=== PATIENT | female | born 1945 | race Caucasian/White ===

== ENCOUNTER → 2017-10-10 10:58 | Outpatient (CLI) | payer MEDICARE, SELFPAY ==
--- NOTE | 2017-10-10 11:01 | RAD_ITS ---
STUDY: X-RAY - RIGHT KNEE REASON FOR EXAM: Lateral pain and bruising after a fall 1.5 weeks ago. TECHNIQUE: 3 view(s) of the knee. COMPARISON: None. FINDINGS: Normal visualized distal femur. Normal visualized proximal tibia and fibula. Normal proximal tibiofibular articulation. There is mild joint space narrowing of the medial femorotibial compartment and a possible subtle osteochondral lesion of the medial femoral condyle on the AP view. Normal lateral femorotibial compartment. Normal patellofemoral articulation. There is mild soft tissue swelling. RAD/Knee 3 Views IMPRESSION: Mild arthrosis of the medial femorotibial compartment and possible subtle osteochondral lesion of the medial femoral condyle. Electronically Signed: Dann Dillard MD at 11:43 EDT Tel , Service support ,
== END ==
PROVIDERS: Family Provider Family Medicine; PCP Family Medicine; Visit Provider Physician Assistant
DX: M25.561 Pain in right knee (principal)
CPT/HCPCS: 73562

== ENCOUNTER → 2018-02-04 12:18 | Outpatient (CLI) | payer MEDICARE, SELFPAY ==
--- NOTE | 2018-02-04 12:21 | BI_ITS ---
MAMMOGRAPHY - BILATERAL SCREENING 3-D RAGINI SYNTHESIS REASON FOR EXAM: Female, 72 years old. Bilateral Screening 3-D tomosynthesis PERTINENT HISTORY: Asymptomatic. No significant family history. TECHNIQUE: 2-D mammograms and 3-D Ragini synthesis of the breast (s) were performed. CAD was performed. COMPARISON: 12/01/2016 through 04/16/2012. FINDINGS: The breast composition is heterogeneously dense that can obscure small breast masses. Scattered benign appearing calcifications are seen. No dense spiculated dominant masses or suspicious microcalcification cluster are identified. Tiny round asymmetric density partially overlies the inferior anterior pectoralis major muscle shadow with left MLO view only and is partially seen with left MLO view image from mammogram 11/05/2014 and is completely seen with left MLO view 04/16/2012, most likely represents unchanged lymph node. No architectural distortion, adenopathy, skin thickening or nipple retraction identified. There has been no significant change since the prior studies. BI/SCREENING MAMM (CAD), BILAT IMPRESSION: No mammographic sign of malignancy. Routine yearly mammograms recommended. ASSESSMENT CATEGORY: BIRADS Category 2: Benign. A letter regarding these results will be sent to the patient by the facility within 30 days. FOLLOW UP RECOMMENDATION: Yearly follow up mammogram recommended. (A) Negative mammographic results should not deter biopsy as a palpable lesion if present should be followed on clinical grounds and biopsy performed if clinically persistent for 3 months or increasing size. Approximately 10% of breast cancers are not detected by mammography. A normal mammogram should not delay biopsy of a clinically suspicious abnormality. Dense breast tissue mainstream neoplasm. Electronically Signed: Vincent Gabriel, at 20:06 EDT Tel , Service support ,
== END ==
PROVIDERS: Family Provider Family Medicine; PCP Family Medicine; Referring Provider Obstetrics & Gynecology; Visit Provider Obstetrics & Gynecology
DX: Z12.31 Encounter for screening mammogram for malignant neoplasm of breast (principal)
CPT/HCPCS: 77063; 77067

== ENCOUNTER 2018-02-16 12:57 | Emergency (ER) | payer MEDICARE, SELFPAY ==
[2018-02-16 12:58] VITALS: BP 123/87; PULSE 101; RESP 19; TEMP 38.1; O2SAT 98
--- NOTE | 2018-02-16 13:15 | CT_ITS ---
STUDY: CT BRAIN WITHOUT CONTRAST REASON FOR EXAM: Female, 72 years old. Headache and confusion fever chills and dizziness RADIATION DOSAGE (If Supplied By Facility): CTDIvol = ( 44.99 ) mGy, DLP = ( 745.49 ) mGycm TECHNIQUE: Transaxial CT imaging of the brain was performed without administration of intravenous contrast material. # Of Images: 225 Individualized dose optimization techniques were used for this CT. COMPARISON: None. FINDINGS: Normal soft tissue structures. Normal calvarium. There is mild cerebral atrophy with widening of the extra-axial spaces and ventricular dilatation. There are few areas of decreased attenuation within the white matter tracts of the supratentorial brain, consistent with microvascular disease changes. There is focal low attenuation within the right periventricular white matter suggesting prior ischemic change. There is focal low attenuation within the left putamen measuring 5.9 mm compatible with old lacunar infarct. Normal brainstem. There is mild cerebellar atrophy. There is no intracranial hemorrhage. There are no findings of an acute ischemic infarction. Normal visualized paranasal sinuses. CT/Brain/Head without Contrast IMPRESSION: Atrophy. Findings most consistent with prior ischemic change with asymmetry in the white matter as detailed above. 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 If symptoms persist recommend consideration for follow-up MRI. Electronically Signed: Nancy Sun MD at 14:16 EDT Tel , Service support ,
--- NOTE | 2018-02-16 13:15 | RAD_ITS ---
STUDY: X-RAY CHEST REASON FOR EXAM: Female, 72 years old. Fever TECHNIQUE: PA and lateral views of the chest. # of Images: 2 COMPARISON: None. FINDINGS: There is a calcified granuloma in the left upper lobe. There is no demonstrated pleural abnormality. Normal size heart. Normal mediastinum and alex. Normal visualized pulmonary arteries. Normal visualized aortic arch and descending thoracic aorta. There are diffuse degenerative changes of the visualized thoracic spine. Normal visualized ribs, clavicles, and shoulders. There is no demonstrated abnormality of the visualized soft tissue structures of the upper abdomen. RAD/Chest PA and Lateral IMPRESSION: Old granulomatous disease, no visualized focal infiltrate. Electronically Signed: Nancy Sun MD at 14:41 EDT Tel , Service support ,
--- NOTE | 2018-02-16 13:15 | CT_ITS ---
STUDY: CT ABDOMEN AND PELVIS WITHOUT CONTRAST REASON FOR EXAM: Female, 72 years old. Fever chills dizziness confusion back pain RADIATION DOSAGE (If Supplied By Facility): CTDIvol = ( 6.04 ) mGy, DLP = ( 271.80 ) mGycm TECHNIQUE: Transaxial images were obtained from the dome of the diaphragm to the symphysis pubis without oral contrast, and without intravenous contrast. Sagittal and coronal images were reconstructed. # Of Images: 412 Individualized dose optimization techniques were used for this CT. COMPARISON: None. FINDINGS: There is minimal lower lobe atelectasis. The visualized portions of the heart are within normal limits. Normal liver. The gallbladder is distended. Normal spleen. Normal pancreas. Normal bilateral adrenal glands. There is right-sided perinephric stranding. There is minimal right pelviectasis. There is a mildly edematous appearance of the periphery of the right kidney compared to the left. There is low attenuation within the periphery of the right kidney measuring 1.8 x 1.6 cm. There is no significant left renal perinephric stranding. There is a 2.6 x 2.2 cm left renal cyst. There is a 0.9 x 1.5 cm left renal cyst. There is a small hiatal hernia. Normal small intestine. There are mildly distended loops of small bowel the upper abdomen with air-fluid levels. There is an abundant amount of stool in the colon and multiple redundant loops of distal bowel. There are a few diverticula present without visualized diverticulitis. The appendix is visualized and appears normal. Normal abdominal aorta. Normal inferior vena cava. Normal retroperitoneum. Normal urinary bladder. Normal visualized uterus. There is a small umbilical hernia containing fat. There are diffuse degenerative changes of the visualized lumbar spine. CT/Abdomen/Pelvis without Cont IMPRESSION: There is right renal perinephric stranding and mild edema of the right kidney without significant hydronephrosis without evidence of stone raising concern for infection possible pyelonephritis recommend correlation with laboratory values. Bilateral renal cysts. Nonspecific distention of the gallbladder Small hiatal hernia Constipation. Few diverticula no evidence of diverticulitis. No evidence of appendicitis. Electronically Signed: Nancy Sun MD at 14:24 EDT Tel , Service support ,
[2018-02-16] MEDS: Acetaminophen 325 MG Tablet 650 MG PO (13:30)
[2018-02-16] MEDS: Ondansetron 4 MG/2 ML Vial IV (13:30)
[2018-02-16 13:42] LABS: Absolute Lymphocyte Count 0.98 X10^3/ul (0.83-4.51); Absolute Neutrophil Count 11.4 X10^3/uL (2.0-7.7); Basophil# 0.01 X10^3/uL; Basophil% 0.1 % (0-1); Hematocrit 39.5 % (37-47); Hemoglobin 12.8 g/dl (12.0-15.0); Lymphocyte # 0.98 X10^3/ul (4.0); Lymphocyte % 7.6 % (19-41); Mean Corp Hgb Conc 32.4 g/gl (32-36); Mean Corpuscular Hgb 29.4 pg (27.0-32.0); Mean Corpuscular Volume 90.8 fL (81-99); Mean Platelet Vol. 9.1 fl (6.2-12.0); Monocyte# 0.46 X10^3/uL; Monocyte% 3.6 % (0-10); Neutrophil # 11.37 X10^3/uL (2.7-7.7); Neutrophil % 88.6 % (47-70); POSITIVE COUNT NO; POSITIVE DIFFERENTIAL NO; POSITIVE MORPHOLOGY NO; Platelet Count 222 K/mm3 (150-450); RBC Distribution Width CV 13.8 % (11.6-14.6); RBC Distribution Width SD 45.7 fl (35.1-43.9); Red Blood Count 4.35 M/mm3 (4.2-5.4); White Blood Count 12.8 K/mm3 (4.4-11.0)
[2018-02-16 13:53] LABS: Anion Gap 9 (5-15); BUN 15 mg/dL (7-18); BUN/Creat Ratio 17.6 RATIO (10-20); Calcium,Total 8.6 mg/dL (8.5-10.1); Chloride 103 mmol/L (98-107); Creatinine, Serum 0.85 mg/dL (0.55-1.02); EST Glomerular Filtration Rate 69 mL/min (>60); Est Glom Filt Rate - Afr Amer 84 mL/min (>60); Glucose 133 mg/dL (74-106); Potassium 3.6 mmol/L (3.5-5.1); Sodium Level 136 mmol/L (136-145)
[2018-02-16 14:02] LABS: Lactic Acid 1.3 mmol/L (0.4-2.0)
--- NOTE | 2018-02-16 14:08 | ED.DCSUM_ITS ---
- ER Visit Summary Date of Service: 02/16/18 Chief Complaint: Fever History of Present Illness: The patient is a 72 F who was not felt well for the past 1 week. She reported had a temperature of 102.8 at home this morning. She has noted chills for the past several days. She is complaining of some left fl ank pain, urinary frequency, mild cough, nausea. She does report hitting her head on a cabinet last night and has a mild headache. Her daughter thought her speech was somewhat slurred this morning on the phone, but that is now improved. Patient reportedly has not taken anything for her fever. She went to urgent care and was advised to come to the emergency room for possible sepsis. Physical Examination: Blood pressure is 123/87, temperature 100.5, heart rate 101, respiratory rate 19, pulse ox 98% on room air. Patient is sitting upright in bed no acute distress. She is nontoxic appearing. Head neck examination reveals no meningismus. Heart is regular rate and rhythm. Lung sounds are clear. Abdomen is soft with no reproducible tenderness. Hypoactive bowel sounds are present. Back examination reveals no reproducible tenderness or lesions. Neuro exam is normal. Test Results: CBC was a white count 12.8 with left shift. Chemistry studies nor mal. Urinalysis is positive for nitrites with 2+ bacteria. Lactate is normal at 1.3. Influenza swab is negative. Blood cultures were sent. Two-view chest x-ray shows old granulomatous disease with no focal infiltrate. CT head shows atrophy with evidence of prior ischemic change. There is an old left basal ganglier infarct. CT flank shows right renal perinephric stranding and edema of the right kidney consistent with pyelonephritis. No evidence of appendicitis. Emergency Department Course and Treatment: Patient was given Tylenol and IV fluids. She also received ibuprofen from her home meds. On repeat evaluation she does feel improved. She be treated with a 10-day course of Bactrim. Treatment Plan: [] Disposition: Discharge Impression: Pyelonephritis This note was generated with [employer] dictation software. It may contain incorrect words, spelling, and punctuation that were not noted in review of the chart prior to signing ED Disposition - Plan for ED Patient: Chief Complaint: Fever Referrals: Florentino Guevara MD [Primary Care Provider] -
[2018-02-16 16:05] VITALS: BP 100/65; PULSE 81; RESP 16; TEMP 36.9; O2SAT 95
[2018-02-16 16:05] LABS: Mucous, Urine 0 SEEN /hpf (<or=2+)
[2018-02-16 16:06] LABS: Color, Urine Yellow (Yellow); Glucose, Dipstick Normal (Normal); Ketone-Dipstick 5 mg/dl (Negative); Leukocyte Esterase-Dipstick 100 /ul (Negative); Nitrite-Dipstick Positive (Negative); Occult Blood-Urine 150 /ul (Negative); Protein-Dipstick 30 mg/dl (Negative); Urine Bilirubin Dipstick Negative (Negative); Urine Clarity Sl. Cloudy (Clear); Urine Urobilinogen Normal (Normal)
[2018-02-16 16:18] LABS: Bacteria 2+ /hpf (None Seen); Red Blood Cells-Urine 0-5 SEEN /hpf (0-5); Squamous Epithelial Cells - UA 0-5 SEEN /hpf (5-10); White Blood Cells 5-10 SEEN /hpf (0-5)
--- NOTE | 2018-02-16 16:29 | ED.DEP ---
ED Disposition - Plan for ED Patient: Disposition: Home or Assisted Living Chief Complaint: Fever Instructions: ED Kidney Infec Female Prescriptions: Smz/Tmp Ds [Bactrim Ds] 1 tablet PO BID #20 tablet Referrals: Florentino Guevara MD [Primary Care Provider] - 1 Week
[2018-02-16] MEDS: Smz/Tmp Ds Tablet 1 TABLET PO (16:45)
[2018-02-16 16:47] VITALS: BP 112/99; PULSE 88; RESP 16; O2SAT 95
== END 2018-02-16 16:59 | disposition home or self-care (01) ==
PROVIDERS: Emergency Provider Emergency Medicine; Family Provider Family Medicine; PCP Family Medicine
DX: N12 Tubulo-interstitial nephritis, not specified as acute or chronic (principal); R05 Cough; R51 Headache; W22.8XXA Striking against or struck by other objects, initial encounter; Y93.9 Activity, unspecified; Y92.9 Unspecified place or not applicable; E03.9 Hypothyroidism, unspecified; Z79.899 Other long term (current) drug therapy
CPT/HCPCS: 70450; 71046; 74176; 80048; 81001; 83605; 85025; 87040; 87086; 87088; 87186; 87804; 96361; 96374; 99285; J7030; J7040; A4216; J2405

== ENCOUNTER 2018-02-18 10:25 | Inpatient (IN) | payer MEDICARE, SELFPAY ==
[2018-02-18 10:26] VITALS: BP 114/71; PULSE 80; RESP 17; TEMP 36.6; O2SAT 98; BMI 20.2
--- NOTE | 2018-02-18 10:39 | ED.VISSUMM ---
- ER Visit Summary Date of Service: 02/18/18 Chief Complaint: Abdominal pain, nausea, History of Present Illness: The patient is a 72 F presents to the emergency department with abdominal pain, nausea, and vomiting. The patient was seen here 2 days ago. At that time, she was diagnosed with pyelonephritis. She wanted to attempt outpatient therapy. The patient was started on Bactrim. She was given her first dose here and then is been taking it for the past 2 days. She states that she began have increasing pain in her upper abdomen, mostly on the right side. She had a few bouts of emesis yesterday. Her daughter gave her Zofran which did seem to help, but she continues to have this persistent pain. She did have a fever yesterday, but none today. She is never taken Bactrim before. She denies any lightheadedness, dizziness, or other systemic symptoms. Physical Examination: Vital signs reviewed General: Well-nourished, well-developed Head: Normocephalic, atraumatic Eyes: Pupils equal and reactive, extraocular muscles intact Neck, supple, no lymphadenopathy Heart: Regular rate and rhythm Respiratory: No distress, clear bilaterally Abdomen: Soft, nontender, nondistended, no peritoneal signs Back: Nontender Extremities: Nontender, no edema, no cords Skin: Normal color no rash Neuro: Alert and oriented, no focal or lateralizing deficits Test Results: [] Emergency Department Course and Treatment: The patient presents with persistent pain, nausea, vomiting, and fever. She was started on antibiotics for pyelonephritis. My suspicion is that she has not tolerating the outpatient therapy. IV was established. Screening labs are obtained. She does have increasing leukocytosis of 17,000. She also has new hyponatremia, which I do feel is likely because of the Bactrim. Her urine does show evidence of persistent infection. Given her age, persistent symptoms, and side effects to antibiotic therapy I do feel that the patient will require admission given her failed outpatient treatment. Patient was discussed with the hospitalist. Treatment Plan: [] Disposition: Admission Impression: 1. Pyelonephritis with failed outpatient therapy 2. Hyponatremia This note was generated with [employer] software. It may contain incorrect words, spelling, and punctuation that were not noted in review of the chart prior to signing ED Disposition - Plan for ED Patient: Chief Complaint: Abd Pain Referrals: Florentino Guevara MD [Primary Care Provider] -
[2018-02-18] MEDS: 0.9% Normal Saline 1,000 ML 1000 ML IV (11:00)
[2018-02-18 11:10] LABS: Absolute Lymphocyte Count 0.58 X10^3/ul (0.83-4.51); Absolute Neutrophil Count 15.6 X10^3/uL (2.0-7.7); Basophil# 0.01 X10^3/uL; Basophil% 0.1 % (0-1); Eosinophil# 0.01 X10^3/uL; Eosinophils% 0.1 % (0-5); Hematocrit 33.5 % (37-47); Hemoglobin 11.7 g/dl (12.0-15.0); Lymphocyte # 0.58 X10^3/ul (4.0); Lymphocyte % 3.3 % (19-41); Mean Corp Hgb Conc 34.9 g/gl (32-36); Mean Corpuscular Hgb 30.2 pg (27.0-32.0); Mean Corpuscular Volume 86.6 fL (81-99); Mean Platelet Vol. 9.6 fl (6.2-12.0); Monocyte# 1.22 X10^3/uL; Neutrophil # 15.59 X10^3/uL (2.7-7.7); Neutrophil % 89.2 % (47-70); Platelet Count 226 K/mm3 (150-450); RBC Distribution Width SD 40.5 fl (35.1-43.9); Red Blood Count 3.87 M/mm3 (4.2-5.4); White Blood Count 17.5 K/mm3 (4.4-11.0)
[2018-02-18 11:11] LABS: Differential Indicated SCAN CRITERIA MET; POSITIVE COUNT NO; POSITIVE DIFFERENTIAL YES; POSITIVE MORPHOLOGY NO
[2018-02-18 11:14] LABS: ALB/GLOB Ratio 0.7 RATIO (0.9-2.4); AST(SGOT) 21 U/L (15-37); Alanine Aminotransfer ALT/SGPT 21 U/L (13-56); Albumin, Serum 2.9 g/dL (3.2-5.0); Alkaline Phosphatase 74 U/L (45-117); Anion Gap 10 (5-15); BUN 16 mg/dL (7-18); BUN/Creat Ratio 15.8 RATIO (10-20); Calcium,Total 8.2 mg/dL (8.5-10.1); Chloride 92 mmol/L (98-107); Creatinine, Serum 1.01 mg/dL (0.55-1.02); EST Glomerular Filtration Rate 57 mL/min (>60); Est Glom Filt Rate - Afr Amer 69 mL/min (>60); Estimated Creatinine Clearance 42.51 ml/min; Globulin 3.9 g/dL (2.2-4.2); Glucose 106 mg/dL (74-106); Potassium 3.6 mmol/L (3.5-5.1); Protein, Total 6.8 g/dL (6.4-8.2); Sodium Level 125 mmol/L (136-145)
[2018-02-18 11:21] LABS: Lactic Acid 1.6 mmol/L (0.4-2.0)
[2018-02-18 11:31] LABS: Platelet Estimate A (ADEQ); Red Cell Morphology NORM C+C NORMAL (NORM C&C)
[2018-02-18 11:47] LABS: Bacteria 0 SEEN /hpf (None Seen); Mucous, Urine 0 SEEN /hpf (<or=2+)
[2018-02-18 11:51] LABS: Color, Urine Yellow (Yellow); Glucose, Dipstick Normal (Normal); Ketone-Dipstick Negative (Negative); Leukocyte Esterase-Dipstick 25 /ul (Negative); Nitrite-Dipstick Negative (Negative); Occult Blood-Urine 150 /ul (Negative); Protein-Dipstick 30 mg/dl (Negative); Specific Gravity, Urine 1.015 (1.002-1.030); Urine Bilirubin Dipstick Negative (Negative); Urine Clarity Sl. Cloudy (Clear); Urine Urobilinogen Normal (Normal)
[2018-02-18] MEDS: Acetaminophen 500 MG Tablet 1000 MG PO (11:53)
[2018-02-18] MEDS: Morphine 2 MG/ML Syringe IV (11:54)
[2018-02-18 12:05] LABS: Red Blood Cells-Urine 10-25 SEEN /hpf (0-5); Squamous Epithelial Cells - UA 0-5 SEEN /hpf (5-10); White Blood Cells 0-5 SEEN /hpf (0-5)
[2018-02-18] MEDS: Ceftriaxone 1 GM/50 ML BAG IV (12:30)
[2018-02-18] MEDS: fentaNYL 100 MCG/2 ML Ampul 25 MCG IV (13:06)
[2018-02-18 13:24] VITALS: BMI 20.2
[2018-02-18 13:39] VITALS: BMI 20.5
[2018-02-18 14:15] VITALS: BP 134/79; PULSE 69; RESP 16; TEMP 36.9; O2SAT 93
--- NOTE | 2018-02-18 14:37 | CASEMGMT ---
RN CM Assessment PCP: Dr. Guevara [facility] Prescription coverage: yes Living Arrangements: Lives with daughter DME: Denies DME use DC PLAN: HOME, no needs identified @ this time.
[2018-02-18] MEDS: Ondansetron 4 MG/2 ML Vial IV (17:24)
[2018-02-18] MEDS: 0.9% NaCl Peripheral Flush Adult/Peds IV ×2 (17:24→21:43)
--- NOTE | 2018-02-18 19:30 | PCM.HP.STD ---
Problem List (1) Hypothyroid Status: Chronic (2) Pyelonephritis Status: Acute History of Present Illness Date of Admission: 02/18/18 Chief Complaint: Abdominal pain The patient is a 72 year old F with a PMH as above presented to the ER on sunday and was found to have pyelonephritis. She had a fever on sunday and has been having chills for the week prior as well as right flank pain. CT at the time demonstrated right pyelo and she was discharged on bactrim. Unfortunately she was unable to tolerate the bactrim and had nausea and episodes of vomiting over the weekend and she presented back to the ER for admission d/t failure of outpatient management. Her cx from sunday shows a friend sensitive E. coli and she was given a dose of rocephin in the ER. SHe was not septic on admission. Past Medical History Past Medical History (Chronic Problems): Chronic Problems (Last Updated 01/07/18 @ 13:56 by Socorro Mckeon) Hypothyroid (Chronic) Medical History: Medical History (Last Updated 01/07/18 @ 13:56 by Socorro Mckeon) Skin cancer C44.90 Thyroid disorder E07.9 Allergies No Known Allergies Allergy (Verified 02/18/18 10:29) Home Medications: Ambulatory Orders Medication Instructions Recorded levothyroxine 25 mcg tablet 25 mcg PO DAILY #30 tab 01/08/18 Smz/Tmp Ds [Bactrim Ds] 1 tablet PO BID #20 tablet 02/16/18 Surgical History: Surgical History (Last Updated 01/07/18 @ 13:56 by Socorro Mckeon) History of rotator cuff surgery Z98.890 skin cancer removal Smoking Status: Never smoker Alcohol: None Drugs: None - *Family History Maternal Family History: Family History (Last Updated 01/07/18 @ 13:58 by Socorro Mckeon) Mother Abdominal aortic aneurysm Uncle Abdominal aortic aneurysm Brother Abdominal aortic aneurysm Review of Systems Constitutional: Denies: Chills, Fever, Weight Change HEENT: Denies: Head Aches, Sinus Congestion, Sinus Drainage Cardiovascular: Denies: Chest Pain, Palpitations Respiratory: Denies: Cough, Shortness of breath at rest, Sputum production Gastrointestinal: Reports: Abdominal Pain, Nausea, Vomiting Genitourinary: Denies: Dysuria Musculoskeletal: Denies: Joint Pain, Joint Tenderness Skin: Denies: Rash, Wounds Neurological: Denies: Numbness, Tingling, Focal weakness Psychiatric: Denies: Anxiety, Depression Hematologic/ Lymphatic: Denies: Easy Bruising, Easy Bleeding VTE Information - Inpt Only VTE Present on Admission: No Patient Problems: Active and Suspected Problems (Last Updated 01/07/18 @ 13:56 by Socorro Mckeon) Pyelonephritis (Acute) - Physical Exam General: Alert, Oriented x3, Cooperative, No apparent distress HEENT: Atraumatic, PERRLA, EOMI, Normocephalic Oral: Moist Mucosa Neck: Supple, No JVD Lungs: Clear to auscultation, Normal air movement, No rhonchi, No wheeze, No rales Cardiovascular: Regular rate, Regular Rhythm, Normal S1, Normal S2, No murmurs Abdomen: Soft, Non-Distended, No Hepato-splenomegaly, Tender - mild, - - mild right CVA tenderness Skin: No rashes, No breakdown Neurological: Neuro grossly intact, Sensory exam intact to light touch and pain Psych/Mental Status: Normal Affect, Appropriate Vital Signs Temp Pulse Resp BP Pulse Ox 98.5 F 69 16 134/79 H 93 02/18/18 14:15 02/18/18 14:15 02/18/18 14:15 02/18/18 14:15 02/18/18 14:15 Oxygen Delivery Method Room Air Weight: 123 lb 3.2 oz Body Mass Index (BMI) 20.5 Intake and Output for Last 24 Hours 02/16/18 02/17/18 02/18/18 23:59 23:59 23:59 Intake Total 200 / 200 Balance 200 / 200 Laboratory Tests Past 24 Hrs 02/18/18 02/18/18 02/18/18 10:50 10:50 10:50 WBC 17.5 H RBC 3.87 L Hgb 11.7 L Hct 33.5 L MCV 86.6 MCH 30.2 MCHC 34.9 RDW 13.0 RDW Differential 40.5 Plt Count 226 MPV 9.6 Immature Gran % (Auto) 0.300 Neut % (Auto) 89.2 H Lymph % (Auto) 3.3 L Parker % (Auto) 7.0 Eos % (Auto) 0.1 Baso % (Auto) 0.1 Absolute Neuts (auto) 15.6 H Absolute Lymphs (auto) 0.58 L Total Counted Not Reportable Differential Comment Platelet Estimate A RBC Morphology NORM C+C Sodium 125 L Potassium 3.6 Chloride 92 L Carbon Dioxide 23.0 Anion Gap 10 BUN 16 Creatinine 1.01 Estim Creat Clear Calc 42.51 Est GFR (MDRD) Af Amer 69 Est GFR (MDRD) Non-Af 57 L BUN/Creatinine Ratio 15.8 Glucose 106 Lactic Acid 1.6 Calcium 8.2 L Total Bilirubin 0.30 AST 21 ALT 21 Alkaline Phosphatase 74 Total Protein 6.8 Albumin 2.9 L Globulin 3.9 Albumin/Globulin Ratio 0.7 L Urine Color Urine Clarity Urine pH Ur Specific Dalton Urine Protein Urine Glucose (UA) Urine Ketones Urine Occult Blood Urine Nitrite Urine Bilirubin Urine Urobilinogen Ur Leukocyte Esterase Urine RBC Urine WBC Ur Squamous Epith Cells Urine Bacteria Urine Mucus 02/18/18 11:36 WBC RBC Hgb Hct MCV MCH MCHC RDW RDW Differential Plt Count MPV Immature Gran % (Auto) Neut % (Auto) Lymph % (Auto) Parker % (Auto) Eos % (Auto) Baso % (Auto) Absolute Neuts (auto) Absolute Lymphs (auto) Total Counted Differential Comment Platelet Estimate RBC Morphology Sodium Potassium Chloride Carbon Dioxide Anion Gap BUN Creatinine Estim Creat Clear Calc Est GFR (MDRD) Af Amer Est GFR (MDRD) Non-Af BUN/Creatinine Ratio Glucose Lactic Acid Calcium Total Bilirubin AST ALT Alkaline Phosphatase Total Protein Albumin Globulin Albumin/Globulin Ratio Urine Color Yellow Urine Clarity Sl. Cloudy Urine pH 6.0 Ur Specific Dalton 1.015 Urine Protein 30 H Urine Glucose (UA) Normal Urine Ketones Negative Urine Occult Blood 150 H Urine Nitrite Negative Urine Bilirubin Negative Urine Urobilinogen Normal Ur Leukocyte Esterase 25 H Urine RBC 10-25 SEEN Urine WBC 0-5 SEEN Ur Squamous Epith Cells 0-5 SEEN Urine Bacteria 0 SEEN Urine Mucus 0 SEEN Assessment/Plan All Active Problems (Last Updated 01/07/18 @ 13:56 by Socorro Mckeon) Pyelonephritis (Acute) 1. Right pyelonephritis - Admit inpatient for outpatient failure - Cipro BID - No IVF - Morphine only prn - Zofran prn 2. Hypothyroidism - Stable - c/w synthroid DVT: Heparin Diet: Regular Code Visit Inpatient E&M: 43159 Init Hosp L2
[2018-02-18 20:40] VITALS: BP 109/66; PULSE 63; RESP 16; TEMP 37; O2SAT 95
[2018-02-18] MEDS: Heparin Injection (Vial) 5,000 UNIT/ML VIAL 5000 UNIT SC (21:43)
[2018-02-18] MEDS: Ciprofloxacin 400 MG/200 ML BAG 200 MG IV (21:43)
[2018-02-19 02:28] VITALS: BP 117/72; PULSE 52; RESP 16; TEMP 37.4; O2SAT 96
[2018-02-19 06:31] LABS: Absolute Lymphocyte Count 0.66 X10^3/ul (0.83-4.51); Absolute Neutrophil Count 9.3 X10^3/uL (2.0-7.7); Eosinophil# 0.02 X10^3/uL; Eosinophils% 0.2 % (0-5); Hematocrit 33.2 % (37-47); Hemoglobin 11.3 g/dl (12.0-15.0); Lymphocyte # 0.66 X10^3/ul (4.0); Lymphocyte % 6.1 % (19-41); Mean Corpuscular Hgb 29.5 pg (27.0-32.0); Mean Corpuscular Volume 86.7 fL (81-99); Mean Platelet Vol. 9.5 fl (6.2-12.0); Monocyte# 0.82 X10^3/uL; Monocyte% 7.6 % (0-10); Neutrophil # 9.26 X10^3/uL (2.7-7.7); Platelet Count 231 K/mm3 (150-450); RBC Distribution Width CV 13.6 % (11.6-14.6); RBC Distribution Width SD 43.6 fl (35.1-43.9); Red Blood Count 3.83 M/mm3 (4.2-5.4); White Blood Count 10.8 K/mm3 (4.4-11.0)
[2018-02-19 06:34] LABS: POSITIVE COUNT NO; POSITIVE DIFFERENTIAL NO; POSITIVE MORPHOLOGY NO
[2018-02-19 06:52] LABS: Anion Gap 7 (5-15); BUN 11 mg/dL (7-18); BUN/Creat Ratio 13.4 RATIO (10-20); Calcium,Total 8.4 mg/dL (8.5-10.1); Chloride 100 mmol/L (98-107); Creatinine, Serum 0.82 mg/dL (0.55-1.02); EST Glomerular Filtration Rate 72 mL/min (>60); Est Glom Filt Rate - Afr Amer 88 mL/min (>60); Glucose 88 mg/dL (74-106); Potassium 3.5 mmol/L (3.5-5.1); Sodium Level 134 mmol/L (136-145)
[2018-02-19 08:30] VITALS: BP 136/81; PULSE 76; RESP 16; TEMP 37.3; O2SAT 99
[2018-02-19] MEDS: Heparin Injection (Vial) 5,000 UNIT/ML VIAL 5000 UNIT SC (09:11)
[2018-02-19] MEDS: 0.9% NaCl Peripheral Flush Adult/Peds IV (09:11)
[2018-02-19] MEDS: Ciprofloxacin 400 MG/200 ML BAG 200 MG IV (09:12)
--- NOTE | 2018-02-19 10:05 | DCINST_ITS ---
- Discharge Diagnoses Current Active Problems: Current Active and Chronic Problems (Last Updated 01/07/18 @ 13:56 by Socorro Mckeon) Hypothyroid (Chronic) Pyelonephritis (Acute) You will use the following diet at home:: Regular Your food should be the consistency of: Regular Your liquids should be the consistency of: Regular/Thin Discharge Activity: No Restrictions Call your doctor if you observe: Fever of 101 or Higher Allergies/Adverse Reactions: Allergies No Known Allergies Allergy (Verified 02/18/18 10:29) Medications to take at Discharge levothyroxine 25 mcg tablet 25 mcg PO DAILY #30 tab 01/08/18 Ciprofloxacin HCl 500 mg PO BID #14 tablet 02/19/18 The following prescriptions were given: Ciprofloxacin HCl 500 mg PO BID #14 tablet Primary Care Physician: Florentino Guevara MD [Primary Care Provider] - Please follow up with your Primary Care Physician in: in 3-5 days Test Results: Test results from this visit will be discussed in further detail at your follow- up appointment, if applicable.
--- NOTE | 2018-02-19 10:10 | DS.PCM_ITS ---
Discharge Date and Diagnosis - Problem List Patient Problems: Active and Suspected Problems (Last Updated 01/07/18 @ 13:56 by Socorro Mckeon) Pyelonephritis (Acute) Date of Admission: 02/18/18 Date of Discharge: 02/19/18 - Primary Discharge Diagnosis Active and Suspected Problems (Last Updated 01/07/18 @ 13:56 by Socorro Mckeon) Pyelonephritis (Acute) - Secondary Discharge Diagnosis Chronic Problems (Last Updated 01/07/18 @ 13:56 by Socorro Mckeon) Hypothyroid (Chronic) Hospital Course and Treatment Imaging Results: CT Abd/pelvis: IMPRESSION: There is right renal perinephric stranding and mild edema of the right kidney without significant hydronephrosis without evidence of stone raising concern for infection possible pyelonephritis recommend correlation with laboratory values. Bilateral renal cysts. Nonspecific distention of the gallbladder Small hiatal hernia Constipation. Few diverticula no evidence of diverticulitis. No evidence of appendicitis. Consults: None Operations: None Procedures: None Summary of Care Provided: HPI: The patient is a 72 year old F with a PMH as above presented to the ER on sunday and was found to have pyelonephritis. She had a fever on sunday and has been having chills for the week prior as well as right flank pain. CT at the time demonstrated right pyelo and she was discharged on bactrim. Unfortunately she was unable to tolerate the bactrim and had nausea and episodes of vomiting over the weekend and she presented back to the ER for admission d/t failure of outpatient management. Her cx from sunday shows a friend sensitive E. coli and she was given a dose of rocephin in the ER. SHe was not septic on admission. Vital Signs - 24 hr Temp Pulse Resp BP Pulse Ox 02/19/18 08:30 99.1 F 76 16 136/81 H 99 02/19/18 02:28 99.4 F H 52 L 16 117/72 96 02/18/18 20:40 98.6 F 63 16 109/66 95 02/18/18 14:15 98.5 F 69 16 134/79 H 93 02/18/18 10:26 97.8 F 80 17 114/71 98 General: Alert, Oriented x3, Cooperative, No apparent distress HEENT: Atraumatic, PERRLA, EOMI, Normocephalic Oral: Moist Mucosa Neck: Supple, No JVD Lungs: Clear to auscultation, Normal air movement, No rhonchi, No wheeze, No rales Cardiovascular: Regular rate, Regular Rhythm, Normal S1, Normal S2, No murmurs Abdomen: Soft, Non-Distended, No Hepato-splenomegaly, Non-tender Skin: No rashes, No breakdown Neurological: Neuro grossly intact, Sensory exam intact to light touch and pain Psych/Mental Status: Normal Affect, Appropriate Hospital Course 1. Acute Right pyelonephritis - She was admitted after outpatient failure with bactrim which she was unable to tolerate. She was given a dose of rocephin yesterday morning and Cipro last night. Her pain has resolved, her leukocytosis has resolved and she has been afebrile. Unfortunately she could not receive her morning dose because her IV infiltrated so she was given on of her PO cipro doses that was sent up from the outpatient pharmacy. She was discharged on PO cipro BID for 7 days. Patient Problems: Active and Suspected Problems (Last Updated 01/07/18 @ 13:56 by Socorro Mckeon) Pyelonephritis (Acute) - Physical Exam Vital Signs Temp Pulse Resp BP Pulse Ox 99.1 F 76 16 136/81 H 99 02/19/18 08:30 02/19/18 08:30 02/19/18 08:30 02/19/18 08:30 02/19/18 08:30 Oxygen Delivery Method Room Air Weight: 123 lb 3.2 oz Body Mass Index (BMI) 20.5 Intake and Output for Last 24 Hours 02/17/18 02/18/18 02/19/18 23:59 23:59 23:59 Intake Total 200 / 200 Balance 200 / 200 Laboratory Tests Past 24 Hrs 02/18/18 02/18/18 02/18/18 10:50 10:50 10:50 WBC 17.5 H RBC 3.87 L Hgb 11.7 L Hct 33.5 L MCV 86.6 MCH 30.2 MCHC 34.9 RDW 13.0 RDW Differential 40.5 Plt Count 226 MPV 9.6 Immature Gran % (Auto) 0.300 Neut % (Auto) 89.2 H Lymph % (Auto) 3.3 L [place] % (Auto) 7.0 Eos % (Auto) 0.1 Baso % (Auto) 0.1 Absolute Neuts (auto) 15.6 H Absolute Lymphs (auto) 0.58 L Total Counted Not Reportable Differential Comment Platelet Estimate A RBC Morphology NORM C+C Sodium 125 L Potassium 3.6 Chloride 92 L Carbon Dioxide 23.0 Anion Gap 10 BUN 16 Creatinine 1.01 Estim Creat Clear Calc 42.51 Est GFR (MDRD) Af Amer 69 Est GFR (MDRD) Non-Af 57 L BUN/Creatinine Ratio 15.8 Glucose 106 Lactic Acid 1.6 Calcium 8.2 L Total Bilirubin 0.30 AST 21 ALT 21 Alkaline Phosphatase 74 Total Protein 6.8 Albumin 2.9 L Globulin 3.9 Albumin/Globulin Ratio 0.7 L Urine Color Urine Clarity Urine pH Ur Specific [place] Urine Protein Urine Glucose (UA) Urine Ketones Urine Occult Blood Urine Nitrite Urine Bilirubin Urine Urobilinogen Ur Leukocyte Esterase Urine RBC Urine WBC Ur Squamous Epith Cells Urine Bacteria Urine Mucus 02/18/18 02/19/18 02/19/18 11:36 06:18 06:18 WBC 10.8 RBC 3.83 L Hgb 11.3 L Hct 33.2 L MCV 86.7 MCH 29.5 MCHC 34.0 RDW 13.6 RDW Differential 43.6 Plt Count 231 MPV 9.5 Immature Gran % (Auto) 0.100 Neut % (Auto) 86.0 H Lymph % (Auto) 6.1 L [place] % (Auto) 7.6 Eos % (Auto) 0.2 Baso % (Auto) 0.0 Absolute Neuts (auto) 9.3 H Absolute Lymphs (auto) 0.66 L Total Counted Not Reportable Differential Comment Platelet Estimate RBC Morphology Sodium 134 L Potassium 3.5 Chloride 100 Carbon Dioxide 27.0 Anion Gap 7 BUN 11 Creatinine 0.82 Estim Creat Clear Calc 53.10 Est GFR (MDRD) Af Amer 88 Est GFR (MDRD) Non-Af 72 BUN/Creatinine Ratio 13.4 Glucose 88 Lactic Acid Calcium 8.4 L Total Bilirubin AST ALT Alkaline Phosphatase Total Protein Albumin Globulin Albumin/Globulin Ratio Urine Color Yellow Urine Clarity Sl. Cloudy Urine pH 6.0 Ur Specific [place] 1.015 Urine Protein 30 H Urine Glucose (UA) Normal Urine Ketones Negative Urine Occult Blood 150 H Urine Nitrite Negative Urine Bilirubin Negative Urine Urobilinogen Normal Ur Leukocyte Esterase 25 H Urine RBC 10-25 SEEN Urine WBC 0-5 SEEN Ur Squamous Epith Cells 0-5 SEEN Urine Bacteria 0 SEEN Urine Mucus 0 SEEN Discharge Activity: No Restrictions Call your doctor if you observe: Fever of 101 or Higher Home Medications: Medications to take at Discharge levothyroxine 25 mcg tablet 25 mcg PO DAILY #30 tab 01/08/18 Ciprofloxacin HCl 500 mg PO BID #14 tablet 02/19/18 Following Prescrptions Were Given to Patient: Ciprofloxacin HCl 500 mg PO BID #14 tablet Primary Care Physician: Florentino Guevara MD [Primary Care Provider] - Please follow up with your Primary Care Physician in: in 3-5 days Disposition: Home Minutes spent on discharge:: 35 Patient Condition:: Good Medical Necessity - Tobacco Use Smoking Status: Never smoker Meaningful Use Info Meaningful Use Diagnoses (Choose all that apply): None applicable Code Visit Inpatient E&M: 44602 Disch Hosp
== END 2018-02-19 11:22 | disposition home or self-care (01) | DRG 690 ==
LOC: ED 12:34 → MS2 12:41
PROVIDERS: Admitting Provider Family Medicine; Emergency Provider Emergency Medicine; Family Provider Family Medicine; PCP Family Medicine; Referring Provider Family Medicine; Visit Provider Family Medicine
DX: N10 Acute pyelonephritis (principal); E03.9 Hypothyroidism, unspecified
CPT/HCPCS: 36415; 70450; 71046; 74176; 80048; 80053; 81001; 83605; 85025; 87040; 87086; 87088; 87186; 87804; 96361; 96374; 99282; 99285; J7030; J7040; J7050; A4216; J0744; J2405

== ENCOUNTER → 2018-08-28 | Outpatient (CLI) | payer MEDICARE, SELFPAY ==
[2018-06-11 09:59] VITALS: BMI 20.5
== END | disposition home or self-care (01) ==
LOC: LABSPEC 16:10
PROVIDERS: Family Provider Family Medicine; PCP Family Medicine; Referring Provider Otolaryngology; Visit Provider Otolaryngology
DX: J32.9 Chronic sinusitis, unspecified (principal)
CPT/HCPCS: 87070; 87205

== ENCOUNTER → 2018-09-09 | Outpatient (CLI) | payer MEDICARE, SELFPAY ==
[2018-06-11 09:59] VITALS: BMI 20.5
--- NOTE | 2018-09-09 06:31 | CT_ITS ---
HISTORY: SINUSITIS-right sided since Apr 2018 EXAMINATION: CT Sinuses W/O Contrast TECHNIQUE: Helically acquired images were obtained of the paranasal sinuses. A radiation dose optimization technique was used for this scan. IV Contrast dosage and agent: None. COMPARISON: None FINDINGS: Complete opacification of the right maxillary sinus with inflammatory occlusion of the right ostiomeatal unit. Subtotal opacification of the right frontal sinus and opacification of the anterior ethmoid air cells on the right. The frontal, ethmoid, and maxillary sinuses on the left appear clear. The sphenoid sinuses are clear. Bilateral christiano bullosa, small on the right and moderate on the left. Mild nasal septal deviation to the right accompanied by a small spur of the mid septum which projects to the right . The mastoids and middle ear cavities appear clear. The orbits show no inflammatory disease. Intact globes. CT/Sinus/Facial Bone IMPRESSION: 1. Complete opacification of the right maxillary sinus with inflammatory occlusion of the right ostiomeatal unit. 2. Additional frontal and ethmoid sinusitis on the right. 3. Mild deviation of the nasal septum to the right. Bilateral christiano bullosa, small on the right and moderate on the left. Individualized dose optimization techniques were used for this CT. at 0746 Reported and signed by: Yonny Snow MD Electronically Signed: Yonny Snow, at 7:44 EDT Tel , Service support ,
== END | disposition home or self-care (01) ==
PROVIDERS: Family Provider Family Medicine; PCP Family Medicine; Referring Provider Otolaryngology Otolaryngology/Facial Plastic Surgery; Visit Provider Otolaryngology Otolaryngology/Facial Plastic Surgery
DX: J32.9 Chronic sinusitis, unspecified (principal)
CPT/HCPCS: 70486

== ENCOUNTER → 2018-11-01 | Outpatient (CLI) | payer MEDICARE, SELFPAY ==
[2018-06-11 09:59] VITALS: BMI 20.5
== END | disposition home or self-care (01) ==
LOC: LABSPEC 16:03
PROVIDERS: Family Provider Family Medicine; PCP Family Medicine; Referring Provider Otolaryngology; Visit Provider Otolaryngology
DX: J01.90 Acute sinusitis, unspecified (principal)
CPT/HCPCS: 87070; 87205

== ENCOUNTER → 2018-11-15 | Outpatient (CLI) | payer MEDICARE, SELFPAY ==
[2018-11-15 13:11] VITALS: BMI 20.5
--- NOTE | 2018-11-15 13:14 | RAD_ITS ---
STUDY: X-RAY - RIGHT HAND REASON FOR EXAM: Female, 73 years old. Medial pain. TECHNIQUE: 3 view(s) of the hand. COMPARISON: None. FINDINGS: Normal radiocarpal articulation. Normal distal radioulnar joint. Normal visualized carpal bones. Normal carpal articulations There is degenerative arthrosis of the carpometacarpal articulation of the thumb with lateral subluxation of the first metacarpus. Normal second through fifth carpometacarpal joints. Normal metacarpi. Normal metacarpophalangeal joint of the thumb. Normal interphalangeal joint of the thumb. Normal proximal and distal phalanges of the thumb. Normal metacarpophalangeal joints of the second through fifth fingers. There is mild articular joint space narrowing of the proximal and distal interphalangeal joints of the second through fifth fingers, but without erosive changes or periarticular soft tissue swelling. Normal phalanges of the second through fifth fingers. Soft tissue swelling. RAD/Hand Min 3 Views IMPRESSION: Degenerative changes. Soft tissue swelling. Electronically Signed: Mic Lowery, at 13:40 EDT , Service support ,
--- NOTE | 2018-11-15 13:14 | RAD_ITS ---
STUDY: X-RAY - RIGHT WRIST REASON FOR EXAM: Female, 73 years old. History of fall. TECHNIQUE: 3 view(s) of the wrist were obtained. COMPARISON: None. FINDINGS: Normal visualized distal radius and ulna. Normal radiocarpal articulation. Normal distal radioulnar articulation. Normal carpal bones. Normal carpal articulations. There is degenerative arthrosis of the carpometacarpal articulation of the thumb. Normal second through fifth carpometacarpal articulations. Normal visualized metacarpal bones. The soft tissue structures are unremarkable. RAD/Wrist min 3 Views IMPRESSION: No acute abnormality is seen. Arthrosis of the first carpometacarpal joint. Electronically Signed: Mic Lowery, at 13:40 EDT , Service support ,
== END | disposition home or self-care (01) ==
LOC: HPRAD 13:13
PROVIDERS: Family Provider Family Medicine; PCP Family Medicine; Referring Provider Physician Assistant Surgical; Visit Provider Physician Assistant Surgical
DX: S60.211A Contusion of right wrist, initial encounter (principal)
CPT/HCPCS: 73110; 73130

== ENCOUNTER → 2019-01-24 09:00 | Outpatient (CLI) | payer MEDICARE, SELFPAY ==
[2018-11-15 13:11] VITALS: BMI 20.5
[2019-01-24 12:23] LABS: Absolute Lymphocyte Count 1.69 X10^3/uL (0.83-4.51); Absolute Neutrophil Count 2.6 X10^3/uL (2.0-7.7); Basophil# 0.03 X10^3/uL; Basophil% 0.6 % (0-1); Eosinophil# 0.14 X10^3/uL; Eosinophils% 2.8 % (0-5); Hematocrit 40.6 % (37-47); Hemoglobin 12.6 g/dL (12.0-15.0); Lymphocyte # 1.69 X10^3/ul (4.0); Lymphocyte % 33.7 % (19-41); Mean Corpuscular Hgb 29.1 pg (27.0-32.0); Mean Corpuscular Volume 93.8 fL (81-99); Mean Platelet Vol. 10.2 fl (6.2-12.0); Monocyte# 0.54 X10^3/uL; Monocyte% 10.8 % (0-10); NRBC Flagged by Analyzer 0 % (0-5); Neutrophil % 51.9 % (47-70); Platelet Count 298 K/mm3 (150-450); RBC Distribution Width CV 13.3 % (11.6-14.6); RBC Distribution Width SD 46.2 fl (35.1-43.9); Red Blood Count 4.33 M/mm3 (4.2-5.4)
[2019-01-24 12:50] LABS: Vitamin D,25 Hydroxy 50.8 ng/mL (29.95-100.01)
[2019-01-24 13:06] LABS: ALB/GLOB Ratio 1.1 RATIO (0.9-2.4); AST(SGOT) 18 U/L (15-37); Alanine Aminotransfer ALT/SGPT 24 U/L (13-56); Albumin, Serum 3.8 g/dL (3.2-5.0); Alkaline Phosphatase 77 U/L (45-117); Anion Gap 9 (5-15); BUN 18 mg/dL (7-18); BUN/Creat Ratio 21.7 RATIO (10-20); Chloride 107 mmol/L (98-107); Cholesterol 223 mg/dL (200); Creatinine, Serum 0.83 mg/dL (0.55-1.02); EST Glomerular Filtration Rate 71 mL/min (>60); Est Glom Filt Rate - Afr Amer 86 mL/min (>60); Globulin 3.4 g/dL (2.2-4.2); Glucose 83 mg/dL (74-106); High Density Lipoprotein 76 mg/dL; Potassium 3.8 mmol/L (3.5-5.1); Protein, Total 7.2 g/dL (6.4-8.2); Sodium Level 142 mmol/L (136-145); Thyroid Stim Hormone (TSH) 2.25 uIU/mL (0.358-3.74); Triglycerides 71 mg/dL; Very Low Density Lipoprotein 14 mg/dL (5-40)
== END ==
PROVIDERS: Family Provider Family Medicine; PCP Family Medicine; Visit Provider Family Medicine
DX: Z00.01 Encounter for general adult medical examination with abnormal findings (principal); E03.9 Hypothyroidism, unspecified; E55.9 Vitamin D deficiency, unspecified; E78.5 Hyperlipidemia, unspecified; J32.9 Chronic sinusitis, unspecified
CPT/HCPCS: 36415; 80053; 80061; 82306; 84443; 85025

== ENCOUNTER → 2020-01-30 13:19 | Outpatient (CLI) | payer MEDICARE, SELFPAY ==
[2018-11-15 13:11] VITALS: BMI 20.5
[2020-01-30 15:36] LABS: Absolute Lymphocyte Count 1.74 X10^3/uL (0.83-4.51); Absolute Neutrophil Count 3.5 X10^3/uL (2.0-7.7); Basophil# 0.04 X10^3/uL; Basophil% 0.7 % (0-1); Eosinophil# 0.13 X10^3/uL; Eosinophils% 2.2 % (0-5); Hematocrit 41.6 % (37-47); Lymphocyte # 1.74 X10^3/ul (4.0); Lymphocyte % 29.3 % (19-41); Mean Corp Hgb Conc 31.3 g/dL (32-36); Mean Corpuscular Volume 92.7 fL (81-99); Mean Platelet Vol. 9.9 fl (6.2-12.0); Monocyte# 0.56 X10^3/uL; Monocyte% 9.4 % (0-10); NRBC Flagged by Analyzer 0 % (0-5); Neutrophil # 3.46 X10^3/uL (2.7-7.7); Neutrophil % 58.2 % (47-70); Platelet Count 325 K/mm3 (150-450); RBC Distribution Width CV 13.3 % (11.6-14.6); RBC Distribution Width SD 45.2 fl (35.1-43.9); Red Blood Count 4.49 M/mm3 (4.2-5.4); White Blood Count 5.9 K/mm3 (4.4-11.0)
[2020-01-30 15:41] LABS: Vitamin D,25 Hydroxy 40.4 ng/mL
[2020-01-30 15:50] LABS: ALB/GLOB Ratio 1.2 RATIO (0.9-2.4); AST(SGOT) 19 U/L (15-37); Alanine Aminotransfer ALT/SGPT 25 U/L (13-56); Albumin, Serum 4.1 g/dL (3.2-5.0); Alkaline Phosphatase 74 U/L (45-117); Anion Gap 6 (5-15); BUN 13 mg/dL (7-18); BUN/Creat Ratio 15.3 RATIO (10-20); Calcium,Total 8.9 mg/dL (8.5-10.1); Chloride 107 mmol/L (98-107); Cholesterol 235 mg/dL (200); Creatinine, Serum 0.85 mg/dL (0.55-1.02); EST Glomerular Filtration Rate 69 mL/min (>60); Est Glom Filt Rate - Afr Amer 84 mL/min (>60); Globulin 3.4 g/dL (2.2-4.2); Glucose 82 mg/dL (74-106); High Density Lipoprotein 82 mg/dL; Potassium 3.5 mmol/L (3.5-5.1); Protein, Total 7.5 g/dL (6.4-8.2); Sodium Level 138 mmol/L (136-145); Thyroid Stim Hormone (TSH) 1.49 uIU/mL (0.358-3.74); Triglycerides 75 mg/dL; Very Low Density Lipoprotein 15 mg/dL (5-40)
== END ==
PROVIDERS: PCP Family Medicine; Visit Provider Family Medicine
DX: Z00.00 Encounter for general adult medical examination without abnormal findings (principal); E55.9 Vitamin D deficiency, unspecified; E03.9 Hypothyroidism, unspecified; E78.5 Hyperlipidemia, unspecified
CPT/HCPCS: 36415; 80053; 80061; 82306; 84443; 85025

== ENCOUNTER → 2020-11-05 12:02 | Outpatient (CLI) | payer MEDICARE, SELFPAY ==
--- NOTE | 2020-11-05 12:05 | RAD_ITS ---
STUDY: X-RAY - RIGHT KNEE REASON FOR EXAM: Female, 75 years old. PAIN TECHNIQUE: 4 view(s) of the knee. COMPARISON: None. FINDINGS: Normal visualized distal femur. Normal visualized proximal tibia and fibula. Normal proximal tibiofibular articulation. Normal medial femorotibial compartment. Normal lateral femorotibial compartment. Normal patellofemoral articulation. There is a soft tissue prominence in the suprapatellar region suggesting a small volume joint effusion. The soft tissue structures are unremarkable. RAD/Knee 4 or More Views IMPRESSION: Effusion, as described above. MRI may be useful. Electronically Signed: Gianni Williamson MD at 6:54 EDT Tel , Service support ,
== END ==
PROVIDERS: PCP Family Medicine; Referring Provider Family Medicine; Visit Provider Family Medicine
DX: M25.561 Pain in right knee (principal)
CPT/HCPCS: 73564

== ENCOUNTER → 2022-04-20 | Outpatient (CLI) | payer MEDICARE, SELFPAY ==
[2022-04-20 17:56] LABS: Absolute Lymphocyte Count 1.94 X10^3/uL (0.83-4.51); Absolute Neutrophil Count 3.9 X10^3/uL (2.0-7.7); Basophil# 0.02 X10^3/uL; Basophil% 0.3 % (0-1); Eosinophil# 0.14 X10^3/uL; Eosinophils% 2.1 % (0-5); Hemoglobin 13.4 g/dL (12.0-15.0); Lymphocyte # 1.94 X10^3/ul (0.83-4.51); Lymphocyte % 29.2 % (19-41); Mean Corp Hgb Conc 31.9 g/dL (32-36); Mean Corpuscular Hgb 29.6 pg (27.0-32.0); Mean Corpuscular Volume 92.7 fL (81-99); Mean Platelet Vol. 10.1 fl (6.2-12.0); Monocyte# 0.67 X10^3/uL; Monocyte% 10.1 % (0-10); NRBC Flagged by Analyzer 0 % (0-5); Neutrophil # 3.87 X10^3/uL (2.7-7.7); Neutrophil % 58.1 % (47-70); Platelet Count 319 K/mm3 (150-450); RBC Distribution Width CV 13.2 % (11.6-14.6); RBC Distribution Width SD 44.7 fl (35.1-43.9); Red Blood Count 4.53 M/mm3 (4.2-5.4); White Blood Count 6.7 K/mm3 (4.4-11.0)
[2022-04-20 18:12] LABS: Vitamin D,25 Hydroxy 25.5 ng/mL
[2022-04-20 18:17] LABS: ALB/GLOB Ratio 1.3 RATIO (0.9-2.4); AST(SGOT) 22 U/L (15-37); Alanine Aminotransfer ALT/SGPT 31 U/L (13-56); Albumin, Serum 4.1 g/dL (3.2-5.0); Alkaline Phosphatase 76 U/L (45-117); Anion Gap 3 (5-15); BUN 17 mg/dL (7-18); BUN/Creat Ratio 21.1 RATIO (10-20); Calcium,Total 9.6 mg/dL (8.5-10.1); Chloride 104 mmol/L (98-107); EST Glomerular Filtration Rate 73 mL/min (>60); Est Glom Filt Rate - Afr Amer 88 mL/min (>60); Globulin 3.2 g/dL (2.2-4.2); Glucose 95 mg/dL (74-106); Potassium 4.4 mmol/L (3.5-5.1); Protein, Total 7.3 g/dL (6.4-8.2); Sodium Level 139 mmol/L (136-145); Thyroid Stim Hormone (TSH) 1.78 uIU/mL (0.358-3.74)
== END | disposition home or self-care (01) ==
LOC: BFHLAB 14:27
PROVIDERS: PCP Family Medicine; Visit Provider Family Medicine
DX: Z00.00 Encounter for general adult medical examination without abnormal findings (principal); E03.9 Hypothyroidism, unspecified; E55.9 Vitamin D deficiency, unspecified; E78.5 Hyperlipidemia, unspecified
CPT/HCPCS: 36415; 80053; 82306; 84443; 85025

== ENCOUNTER 2022-08-30 16:49 | Inpatient (IN) | payer MEDICARE, SELFPAY ==
[2022-08-30 16:50] VITALS: BP 180/78; PULSE 85; RESP 16; TEMP 36.3; O2SAT 99; BMI 20.6
[2022-08-30 17:13] VITALS: BMI 19.2
--- NOTE | 2022-08-30 17:14 | EDS_ITS ---
HPI History of Present Illness Chief Complaint: Neuro S/Sx Informant: patient Onset/Context/Timing Onset: Yesterday Narrative Narrative: Patient presents with daughter for evaluation of difficulty speaking. She sta rosita that she will just not be able to get the words out that she wants to say. Symptoms started yesterday but seem to be worsened today. She has had no problems eating or drinking. She denies any weakness in her extremities and denies paresthesias. Daughter states that several years ago she had a CT scan that showed evidence of an old stroke. [facility] Medical History Hypothyroid Skin cancer Home Medications levothyroxine 25 mcg tablet 25 mcg PO DAILY #30 tabs 01/08/18 [Rx Last Taken 02/15/18] ibuprofen 600 mg tablet 600 mg PO Q6H PRN pain #30 tabs 04/12/20 [Rx Last Taken Unknown] ibuprofen 600 mg tablet 600 mg PO TID #30 tabs 12/26/21 [Rx Last Taken Unknown] Allergy/AdvReac Type Severity Reaction Status Date / Time No Known Allergies Allergy Verified 04/12/20 13:22 Family History Mother Abdominal aortic aneurysm Uncle Abdominal aortic aneurysm Brother Abdominal aortic aneurysm Surgical History History of rotator cuff surgery skin cancer removal Social History Smoking Status: Never smoker alcohol intake: never substance use type: does not use caffeine: Yes what type of physical activity do you participate in: walking seatbelt use: always do you feel safe at home: Yes additional social history: - retired ROS ROS ED Constitutional Constitutional ED: Denies chills or fever(s) Eyes Eyes: Denies change in vision or discharge from eye(s) ENT ENT ED: Denies discharge from eye(s), rhinorrhea or sore throat Cardiovascular Cardiovascular: Denies chest pain or palpitations Respiratory/Chest Respiratory/Chest: Denies cough or dyspnea Gastrointestinal Gastrointestinal: Denies abdominal pain, diarrhea, nausea or vomiting Genitourinary Genitourinary ED: Reports urinary frequency; Denies dysuria Musculoskeletal Musculoskeletal: Denies back pain or extremity pain Integumentary Denies Abrasions or rash Neurologic Neurologic: Denies headache(s), paresthesias or weakness Psychiatric Psychiatric: Denies anxiety or depression Allergic/Immunologic Allergic/Immunologic ED: Denies lip swelling or urticaria EXAM Physical Exam Const Vital Signs: 08/30/22 16:50 08/30/22 18:37 08/30/22 18:37 Temperature 97.3 F L Temperature Source Temporal Pulse Rate 85 68 Respiratory Rate 16 15 Blood Pressure 180/78 H 138/74 H Blood Pressure Mean 112 95 Pulse Ox 99 95 97 Oxygen Delivery Method Room Air Room Air Room Air Positive well nourished and well developed General Appearance ED: well developed HEENT Reports normocephalic and head/scalp atraumatic Eyes PERRL and EOMs intact bilaterally Neck supple Chest Wall inspection of chest normal and palpation of chest normal Resp normal respiratory effort and clear to auscultation bilaterally Cardio regular rate and regular rhythm GI normal to inspection, nondistended, normoactive bowel sounds Palpation: soft Back/Spine no CVA tenderness Extremity normal to inspection Neuro oriented x3 Neuro Narrative: See NIH stroke scale. Sensorium / Orientation: alert Psych mental status grossly normal Skin no rashes or lesions noted NIHSS NIHSS Initial: 1a Level of Consciousness: 0 1b LOC Questions (Score 2 if aphasic/stupor): 0 1c LOC Commands (Only score 1st attempt): 0 2 Best Gaze (If aphasic, use reflexive mvmts.): 0 3 Visual: 0 4 Facial Palsy: 0 5 Motor Arm Right (UN = amputation/fusion): 0 5 Motor Arm Left: 0 6 Motor Leg Right: 0 6 Motor Leg Left: 0 7 Limb ataxia (Only + if out of proportion): 0 8 Sensory (Aphasia/stupor=0 or 1, coma=2): 0 9 Best Language: 1 10 Dysarthria (mute, coma=2, intubated=UN): 0 11 Extinction and Inattention (only scored if +): 0 Total Score: 1 MDM MDM MDM Narrative Medical decision making narrative: Stroke work-up initiated, however patient symptoms started sometime yesterday and stroke alert was not called. History & Record Review Discussion w/independent historian: Patient and Family Lab Data Attestation: I reviewed the patient's lab results. Labs: Laboratory Results - last 24 hr 08/30/22 08/30/22 08/30/22 17:20 17:20 17:20 WBC 7.3 RBC 4.37 Hgb 13.1 Hct 39.9 MCV 91.3 MCH 30.0 MCHC 32.8 RDW Std Deviation 45.4 H RDW Coeff of Rajesh 13.3 Plt Count 284 MPV 9.8 Immature Gran % (Auto) 0.100 Neut % (Auto) 59.6 Lymph % (Auto) 27.5 [place] % (Auto) 9.5 Eos % (Auto) 3.0 Baso % (Auto) 0.3 Absolute Neuts (auto) 4.3 Absolute Lymphs (auto) 2.00 Nucleated RBC % 0 PT 12.7 INR 1.0 APTT 24.6 Sodium 142 Potassium 4.0 Chloride 109 H Carbon Dioxide 27.0 Anion Gap 6 BUN 19 H Creatinine 0.90 Estim Creat Clear Calc 43.29 Est GFR (MDRD) Af Amer 78 Est GFR (MDRD) Non-Af 65 BUN/Creatinine Ratio 21.2 H Glucose 101 Calcium 9.2 Troponin I High Sens 31 Urine Color Urine Clarity Urine pH Ur Specific [place] Urine Protein Urine Glucose (UA) Urine Ketones Urine Occult Blood Urine Nitrite Urine Bilirubin Urine Urobilinogen Ur Leukocyte Esterase Urine RBC Urine WBC Ur Squamous Epith Cells Urine Bacteria Urine Mucus 08/30/22 18:07 WBC RBC Hgb Hct MCV MCH MCHC RDW Std Deviation RDW Coeff of Rajesh Plt Count MPV Immature Gran % (Auto) Neut % (Auto) Lymph % (Auto) [place] % (Auto) Eos % (Auto) Baso % (Auto) Absolute Neuts (auto) Absolute Lymphs (auto) Nucleated RBC % PT INR APTT Sodium Potassium Chloride Carbon Dioxide Anion Gap BUN Creatinine Estim Creat Clear Calc Est GFR (MDRD) Af Amer Est GFR (MDRD) Non-Af BUN/Creatinine Ratio Glucose Calcium Troponin I High Sens Urine Color Yellow Urine Clarity Clear Urine pH 7.0 Ur Specific [place] 1.010 Urine Protein Negative Urine Glucose (UA) Normal Urine Ketones Negative Urine Occult Blood 10 H Urine Nitrite Negative Urine Bilirubin Negative Urine Urobilinogen Normal Ur Leukocyte Esterase Negative Urine RBC 0 SEEN Urine WBC 0 SEEN Ur Squamous Epith Cells 0 SEEN Urine Bacteria 0 SEEN Urine Mucus 0 SEEN Radiography Chest X-Ray - ED: 1 View, Read by ED Physician, Chronic Changes and No Infiltrates Diagnostic Testing: Clinical Impression(s) from Imaging Studies Head/Neck CTA 08/30/22 18:10 IMPRESSION: No acute intracranial findings. No acute vascular injury or significant stenosis in the head or neck. Chronic right maxillary sinusitis. N.B. : The above Results were Read Back by Ashish Marino MD to Mikki Pemberton MD, and understanding confirmed on 08/30/2022 18:35:51 (ET). Electronically Signed: Ashish Marino MD at 18:38 EDT , ADDENDUM: 08/30/22 1845 IMPRESSION: No acute intracranial findings. No acute vascular injury or significant stenosis in the head or neck. Chronic right maxillary sinusitis. N.B. : The above Results were Read Back by Ashish Marino MD to Mikki Pemberton MD, and understanding confirmed on 08/30/2022 18:35:51 (ET). Electronically Signed: Ashish Marino MD at 18:38 EDT , Chest X-Ray 08/30/22 18:14 IMPRESSION: No acute cardiopulmonary disease. Stable chest. Electronically Signed: Ashish Marino MD at 18:42 EDT , EKG Initial EKG: Attestation: I personally reviewed and interpreted this EKG as follows: Interpretation: Sinus Rhythm (Sinus at 80 with no acute ischemia.) Treatment and Re-Evaluation Narrative: CBC and chemistry studies are unremarkable. Urinalysis reveals no sign of infection. Chest x-ray per my interpretation reveals chronic changes with no focal infiltrate. Radiology interpretation is reviewed. EKG is sinus rhythm with no evidence of ischemia. CTA of the head and neck reveals no acute findings per discussion with radiologist. He states the noncontrast reveals no evidence of hemorrhage or acute infarct. Given the patient's symptoms I am concerned about stroke. I will speak with hospitalist regarding admission for remainder of work-up. Discharge Plan Triage Chief Complaint: Neuro S/Sx ED Provider: Mikki Pemberton Dx/Rx/DC Orders Clinical Impression: Difficulty with speech Prescriptions: No Action levothyroxine 25 mcg tablet 25 mcg PO DAILY Qty: 30 12RF ibuprofen 600 mg tablet 600 mg PO Q6H PRN (Reason: pain) Qty: 30 0RF ibuprofen 600 mg tablet 600 mg PO TID Qty: 30 0RF Primary Care Provider: Lelo Christine Referrals: Lelo Christine MD [Primary Care Provider] - Disposition Disposition: Acute Care Hospital [facility]
[2022-08-30 17:38] LABS: Absolute Neutrophil Count 4.3 X10^3/uL (2.0-7.7); Basophil# 0.02 X10^3/uL; Basophil% 0.3 % (0-1); Eosinophil# 0.22 X10^3/uL; Hematocrit 39.9 % (37-47); Hemoglobin 13.1 g/dL (12.0-15.0); Lymphocyte % 27.5 % (19-41); Mean Corp Hgb Conc 32.8 g/dL (32-36); Mean Corpuscular Volume 91.3 fL (81-99); Mean Platelet Vol. 9.8 fl (6.2-12.0); Monocyte# 0.69 X10^3/uL; Monocyte% 9.5 % (0-10); NRBC Flagged by Analyzer 0 % (0-5); Neutrophil # 4.32 X10^3/uL (2.7-7.7); Neutrophil % 59.6 % (47-70); Platelet Count 284 K/mm3 (150-450); RBC Distribution Width CV 13.3 % (11.6-14.6); RBC Distribution Width SD 45.4 fl (35.1-43.9); Red Blood Count 4.37 M/mm3 (4.2-5.4); White Blood Count 7.3 K/mm3 (4.4-11.0)
[2022-08-30 17:44] LABS: Partial Thromboplast Time 24.6 Seconds (24.1-36.2); Prothrombin Time (Protime)PT. 12.7 SECONDS (11.7-14.9)
[2022-08-30 17:56] LABS: Anion Gap 6 (5-15); BUN 19 mg/dL (7-18); BUN/Creat Ratio 21.2 RATIO (10-20); Calcium,Total 9.2 mg/dL (8.5-10.1); Chloride 109 mmol/L (98-107); EST Glomerular Filtration Rate 65 mL/min (>60); Est Glom Filt Rate - Afr Amer 78 mL/min (>60); Estimated Creatinine Clearance 43.29 ml/min; Glucose 101 mg/dL (74-106); Sodium Level 142 mmol/L (136-145); Troponin-I HS 31 pg/mL (3.0-54.0)
--- NOTE | 2022-08-30 18:10 | CT_ITS ---
INDICATION: Neuro deficit, acute, stroke suspected EXAMINATION: CTA HEAD AND CTA NECK WITH CONTRAST AND CT BRAIN W/O CONTRAST TECHNIQUE: Noncontrast axial images were obtained of the brain. Subsequently, routine carotid CT angiogram protocol was performed without and with IV contrast. In addition, images were obtained of the [place]. NASCET criteria using the distal ICAs for comparison were used for evaluation of stenoses. 3D reconstructions were reviewed. A radiation dose optimization technique was used for this scan. IV Contrast dosage and agent: 100 mL Isovue 370. COMPARISON: FEB 16, 2018 CT brain. FINDINGS: --CT BRAIN: BRAIN PARENCHYMA: No intra- or extra-axial hemorrhage. No evidence of acute infarct. No intracranial mass or mass effect. No vasogenic edema. There is preservation of the goodman/white matter interface. Diffuse parenchymal volume loss and small vessel ischemic disease changes, upper normal for age. Posterior fossa structures are unremarkable. CSF SPACES: No hydrocephalus. Basal cisterns are patent. No focal dense vessel sign. No abnormal extra-axial fluid collection. CALVARIUM, SKULL BASE, PARANASAL SINUSES AND MASTOID AIR CELLS: Chronic right maxillary sinusitis changes. No discrete lytic or blastic abnormalities. ASPECTS Score for Acute Strokes: 10 --CTA NECK: AORTIC ARCH AND BRANCHES: 3-vessel arch anatomy, patent. Ectasia of the visualized ascending aorta. RIGHT CCA: No occlusion, significant stenosis or dissection. RIGHT ICA: No occlusion, significant stenosis or dissection. Mild tortuosity. No significant atherosclerotic plaque. LEFT CCA: No occlusion, significant stenosis or dissection. LEFT ICA: No occlusion, significant stenosis or dissection. Mild tortuosity. No significant atherosclerotic plaque. RIGHT VERTEBRAL ARTERY: No occlusion, significant stenosis or dissection. LEFT VERTEBRAL ARTERY: No occlusion, significant stenosis or dissection. Dominant vessel. NECK SOFT TISSUES: Normal thyroid gland. No mass or adenopathy. OSSEOUS: Grade 1 anterolisthesis of C3 upon C4. Multilevel degenerative changes. No critical stenosis. LUNGS: Clear. --CTA HEAD: --Anterior circulation: ICAs: No significant stenosis at the intracranial/visualized segments. ACAs: No significant stenosis at the visualized segments. ACOM: Present. MCAs: No significant stenosis at the visualized segments. --Posterior circulation: PCOMs: Present. personnel and payroll technician: No significant stenosis at the visualized segments. BASILAR ARTERY: No significant stenosis. VERTEBRAL ARTERIES: No significant stenosis at the intradural/visualized segments. No evidence of intracranial aneurysm or vascular malformation. CT/STROKE CTA Head AND Neck W/Con IMPRESSION: No acute intracranial findings. No acute vascular injury or significant stenosis in the head or neck. Chronic right maxillary sinusitis. N.B. : The above Results were Read Back by Ashish Marino MD to Mikki Pemberton MD, and understanding confirmed on 08/30/2022 18:35:51 (ET). Electronically Signed: Ashish Marino MD at 18:38 EDT ,
--- NOTE | 2022-08-30 18:14 | RAD_ITS ---
INDICATION: Neuro deficit, acute, stroke suspected EXAMINATION/TECHNIQUE: X-RAY - XR Chest 1 View COMPARISON: February 16, 2018 chest x-ray. FINDINGS: LINES/DEVICES: None. LUNGS: No consolidation, edema or effusion. No pneumothorax. Calcified hilar lymph nodes. MEDIASTINUM AND CARDIOVASCULAR STRUCTURES: Cardiac silhouette not enlarged. Aortic arch calcification. Stable appearance of the pulmonary vascularity. BONES AND SOFT TISSUES: S-shaped scoliosis of the thoracolumbar spine again seen. Associated degenerative disc disease changes throughout the spine. No acute osseous injury. RAD/Chest 1 View IMPRESSION: No acute cardiopulmonary disease. Stable chest. Electronically Signed: Ashish Marino MD at 18:42 EDT ,
[2022-08-30 18:19] LABS: Bacteria 0 SEEN /hpf (None Seen); Mucous, Urine 0 SEEN /hpf (<or=2+); Red Blood Cells-Urine 0 SEEN /hpf (0-5); Squamous Epithelial Cells - UA 0 SEEN /hpf (5-10); White Blood Cells 0 SEEN /hpf (0-5)
[2022-08-30 18:31] LABS: Color, Urine Yellow (Yellow); Glucose, Dipstick Normal (Normal); Ketone-Dipstick Negative (Negative); Leukocyte Esterase-Dipstick Negative /ul (Negative); Nitrite-Dipstick Negative (Negative); Occult Blood-Urine 10 /ul (Negative); Protein-Dipstick Negative (Negative); Urine Bilirubin Dipstick Negative (Negative); Urine Clarity Clear (Clear); Urine Urobilinogen Normal (Normal)
[2022-08-30 18:37] VITALS: BP 138/74; PULSE 68; RESP 15; O2SAT 95; O2SAT 97
--- NOTE | 2022-08-30 19:37 | PCM.HP.STD ---
HPI - General General Date of Admission: 08/30/22 Date of Service: 08/30/22 Chief Complaint: Expressive aphasia HPI Narrative The patient is a 77 y/o F w/ PMHx: Hypothyroidism, Hx prior CVA (noted on prior CT head per family) who presents to the [facility] ED on 08/30/2022 with history of expressive aphasia onset the day prior but worsened over the last 24 hours with no difficulty with oral intake or swallowing nor any extremity weakness or paresthesias prompting family eventually bring her to the ED for evaluation. Work-up in the ED included T97.3, heart rate 85, BP initially 180/78 with most recent repeat 138/74, respiratory rate 16, 99% on room air, CBC with WC 7.3, hemoglobin 13.1, platelet 284 without marked shift, unremarkable coags, BMP with chloride 109, BUN/creatinine 19/0.98, troponin 31, urinalysis with no obvious evidence of UTI, chest x-ray with no acute cardiopulmonary findings, CT of the head as well as CTA head and neck with no acute intracranial findings with no acute vascular injury or significant stenosis in the head or neck with evidence of a chronic right maxillary sinusitis, EKG with sinus rhythm with no acute evidence of ischemia. In the ED NIH stroke scale 1 for language otherwise unremarkable. In the ED patient administered FS ASA therapy. Her daughter who is present during evaluation does report that she does appear mildly improved since prior to ED presentation as she had worsened which had prompted her to eventually be brought to the ED. Patient does note difficulty still with getting some words out but does feel mildly improved. [facility] Medical History (Updated 08/30/22 @ 20:[address] Jesenia Powell MD) History of CVA (cerebrovascular accident) Hypothyroid Skin cancer Home Medications ibuprofen 600 mg tablet 600 mg PO Q6H PRN pain #30 tabs 04/12/20 [Rx Last Taken Unknown] ibuprofen 600 mg tablet 600 mg PO TID pain 08/30/22 [History Last Taken Unknown] levothyroxine 25 mcg tablet 25 mcg PO DAILY hypothyroid 08/30/22 [History Last Taken Unknown] Allergy/AdvReac Type Severity Reaction Status Date / Time No Known Allergies Allergy Verified 04/12/20 13:22 Family History (Updated 08/30/22 @ 20:[address] Jesenia Powell MD) Mother Abdominal aortic aneurysm Heart disease Uncle Abdominal aortic aneurysm Brother Abdominal aortic aneurysm Father Leukemia 59 secondary to Leukemia. Surgical History (Updated 08/30/22 @ 20:[address] Jesenia Powell MD) History of rotator cuff surgery skin cancer removal Social History Smoking Status: Never smoker alcohol intake: never substance use type: does not use caffeine: Yes what type of physical activity do you participate in: walking seatbelt use: always do you feel safe at home: Yes additional social history: - retired ROS ROS Narrative Admission Review of Systems: CONSTITUTIONAL: No weight loss, fever, chills, + weakness or fatigue. HEENT: Eyes: No visual loss, blurred vision, double vision or yellow sclerae. Ears, Nose, Throat: No hearing loss, sneezing, congestion, runny nose or sore throat. SKIN: No rash or itching, lesions, wounds. CARDIOVASCULAR: No chest pain, chest pressure or chest discomfort, palpitations, edema, orthopnea, syncopal events. RESPIRATORY: No shortness of breath, cough or sputum, wheezing, hemoptysis. GASTROINTESTINAL: No anorexia, nausea, vomiting or diarrhea, abdominal pain, melena, BRBPR. GENITOURINARY: No dysuria, frequency, urgency or retention. NEUROLOGICAL: + Expressive aphasia, No headache, dizziness, syncope, paralysis, ataxia, numbness or tingling in the extremities, focal weakness, change in bowel or bladder control, seizure. MUSCULOSKELETAL:+ muscle, back pain, joint pain or stiffness. HEMATOLOGIC: No anemia, bleeding or bruising. LYMPHATICS: No enlarged nodes. No history of splenectomy. PSYCHIATRIC: No history of depression or anxiety. ENDOCRINOLOGIC: No reports of sweating, cold or heat intolerance. No polyuria or polydipsia. ALLERGIES: No history of asthma, hives, eczema or rhinitis. Vital Signs Vital Signs Vital Signs: 08/30/22 16:50 08/30/22 18:37 08/30/22 18:37 Temperature 97.3 F L Temperature Source Temporal Pulse Rate 85 68 Respiratory Rate 16 15 Blood Pressure 180/78 H 138/74 H Blood Pressure Mean 112 95 Pulse Ox 99 95 97 Oxygen Delivery Method Room Air Room Air Room Air Weight Weight: 119 lb 4.321 oz Body Mass Index (BMI) 19.2 Physical Exam Narrative Physical Examination: General: Awake, alert, oriented to self, daughter present, place, month, president but she initially gives the wrong year and cooperative, seated upright in the ED bed in no apparent distress, does seem more fluent with her words but still occasionally having issues during evaluation. Skin: Normal color, normal turgor, no icterus, no cyanosis except occasional staged ecchymoses. HEENT: AT/NC, EOMI, PERRLA, MMM, no carotid bruits or JVD noted. Lungs: Mildly diminished, greater bases, appropriate effort, no rales, ronchi or wheezing. Heart: Currently regular rate and rhythm; no gallop, rub audible. Abdomen: Soft, NTTP, ND, mildly hyperactive BS, no HSM. Extremities: No cyanosis, clubbing, or edema. Neurological: Patient awake, alert, oriented as noted, cognitive function difficult to assess given aphasia; pupils equally reactive to light and accommodation, cranial nerves grossly normal, moving all 4 extremities, no focal deficits, strength preserved, sensation intact, equivocal Babinski, finger-nose and [id number] appropriate, from discussion with daughter who is present aphasia does seem improved since initial ED arrival. Psychiatric: Affect appears normal however reported per staff that she has been irritable with her daughter, no acute evidence of depressive or anxiety feelings. Results Lab / Micro Data Result Diagrams: 08/30/22 17:20 08/30/22 17:20 Labs: Laboratory Results - last 24 hr 08/30/22 17:20: WBC 7.3, RBC 4.37, Hgb 13.1, Hct 39.9, MCV 91.3, MCH 30.0, MCHC 32.8, RDW Std Deviation 45.4 H, RDW Coeff of Rajesh 13.3, Plt Count 284, MPV 9.8, Immature Gran % (Auto) 0.100, Neut % (Auto) 59.6, Lymph % (Auto) 27.5, [place] % (Auto) 9.5, Eos % (Auto) 3.0, Baso % (Auto) 0.3, Absolute Neuts (auto) 4.3, Absolute Lymphs (auto) 2.00, Nucleated RBC % 0 08/30/22 17:20: PT 12.7, INR 1.0, APTT 24.6 08/30/22 17:20: Sodium 142, Potassium 4.0, Chloride 109 H, Carbon Dioxide 27.0, Anion Gap 6, BUN 19 H, Creatinine 0.90, Estim Creat Clear Calc 43.29, Est GFR (MDRD) Af Amer 78, Est GFR (MDRD) Non-Af 65, BUN/Creatinine Ratio 21.2 H, Glucose 101, Calcium 9.2, Troponin I High Sens 31 08/30/22 18:07: Urine Color Yellow, Urine Clarity Clear, Urine pH 7.0, Ur Specific [place] 1.010, Urine Protein Negative, Urine Glucose (UA) Normal, Urine Ketones Negative, Urine Occult Blood 10 H, Urine Nitrite Negative, Urine Bilirubin Negative, Urine Urobilinogen Normal, Ur Leukocyte Esterase Negative, Urine RBC 0 SEEN, Urine WBC 0 SEEN, Ur Squamous Epith Cells 0 SEEN, Urine Bacteria 0 SEEN, Urine Mucus 0 SEEN Radiology Impression Head/Neck CTA 08/30/22 18:10 IMPRESSION: No acute intracranial findings. No acute vascular injury or significant stenosis in the head or neck. Chronic right maxillary sinusitis. N.B. : The above Results were Read Back by Ashish Marino MD to Mikki Pemberton MD, and understanding confirmed on 08/30/2022 18:35:51 (ET). Electronically Signed: Ashish Marino MD at 18:38 EDT , ADDENDUM: 08/30/22 1845 IMPRESSION: No acute intracranial findings. No acute vascular injury or significant stenosis in the head or neck. Chronic right maxillary sinusitis. N.B. : The above Results were Read Back by Ashish Marino MD to Mikki Pemberton MD, and understanding confirmed on 08/30/2022 18:35:51 (ET). Electronically Signed: Ashish Marino MD at 18:38 EDT , Chest X-Ray 08/30/22 18:14 IMPRESSION: No acute cardiopulmonary disease. Stable chest. Electronically Signed: Ashish Marino MD at 18:42 EDT , Assessment & Plan Assessment/Plan (1) Expressive aphasia: PLAN: Plan The patient is a 77 y/o F w/ PMHx: Hypothyroidism, Hx prior CVA (noted on prior CT head per family) who presents to the [facility] ED on 08/30/2022 with history of expressive aphasia onset the day prior but worsened over the last 24 hours with no difficulty with oral intake or swallowing nor any extremity weakness or paresthesias prompting family eventually bring her to the ED for evaluation. #1. Expressive aphasia concerning for CVA w/ Family reported prior CT evidence CVA (not noted on current imaging): Will admit to PCU, will obtain MRI Brain, ECHO, PT/OT/Speech/Nutrition evaluation per protocol. Will allow permissive HTN, maintain on asa, at least moderate dose statin w/ AM FLP, fall precautions. TSH, FLP, hemoglobin A1c, magnesium level requested. Once work-up obtained may consider neurology assessment. #2. Elevated BP without hypertensive diagnosis: Upon initial ED presentation BP significantly elevated, improved in the ED without intervention, continue closely monitor with permissive hypertension ongoing as noted number 1, if evidence of hypertension would initiate treatment once appropriate. As needed agents per stroke protocol. #3. Hypothyroidism: We will continue patient home levothyroxine regimen, TSH and free T4 requested. #4. Chronic Kidney Disease Stage II per review of prior record: Admission BUN/Cr 19/0.98, baseline renal function similar, repeat BMP in AM. #5. DVT prophylaxis: Lovenox. #6. CODE status: Patient healthcare power of cartography/mapping technician are her daughters and living will is in place. Discussed CODE status at length including difference between FULL code, DNR-CCA and DNR-CC status. Following discussions about the differences in these status, requested Full Code status. Advanced Care Planning Face to Face Time: 16 minutes. Admission Evaluation Time spent evaluating chart, patient history, patient evaluation, care planning and discussion with specialists: 75 minutes. Charges/Coding Visit Charges Inpatient E&M: 54060 Init Hosp L3 Procedures Hospitalists Procedures: 37288 Advncd Care Plan 30 Min
[2022-08-30 19:40] VITALS: BP 139/84; PULSE 77; RESP 16; O2SAT 98
[2022-08-30 19:44] VITALS: BP 129/74; PULSE 88; RESP 16; TEMP 36.3; O2SAT 97
[2022-08-30] MEDS: Aspirin 325 MG Tablet PO (19:57)
--- NOTE | 2022-08-30 20:29 | ECHOD_ITS ---
Reason For Study: CVA Procedure This was a 2D Doppler, Color Flow transthoracic echocardiogram. Exam performed portable in patient room. Left Ventricle Normal size and thickness. The left ventricular ejection fraction is 65 %. Normal diastology for age. Right Ventricle Normal right ventricle. Atria The left and right atria are normal. Bubble contrast study is negative for PFO/ASD. Mitral Valve Moderate (2+) posteriorly directed mitral valve insufficiency. Tricuspid Valve Moderate (2+) tricuspid valve insufficiency. Normal pulmonary artery pressure. Aortic Valve Trisinus/trileaflet aortic valve. Mild (1+) aortic valve insufficiency. Pulmonic Valve The pulmonic valve is not well visualized. Great Vessels Normal sized aortic root. Pericardium/Pleural No pericardial effusion. Medication Performed a rapid injection of agitated mix of 9 cc saline and 1cc air to assess for atrial septal defect. MMode/2D Measurements & Calculations LVIDd: 4.3 cm IVSd: 0.83 cm Ao root diam: 3.6 cm LVIDs: 2.6 cm LVPWd: 0.78 cm RVDd: 2.7 cm FS: 39.5 % LAV(MOD-bp): 35.0 ml LA A4 area: 13.4 cm2 LA dimension(2D): 3.3 cm LAV(MOD-bp) Indexed: 21.5 ml/m2 LAV(MOD-sp2): 32.8 ml LAV(MOD-sp4): 35.6 ml RA A4 area: 13.4 cm2 Time Measurements MV dec time: 0.26 sec Doppler Measurements & Calculations MV E max carlos: 55.8 cm/sec Lat Peak E' Carlos: 5.1 cm/sec Med Peak E' Carlos: 5.3 cm/sec MV A max carlos: 69.4 cm/sec E/E' lat: 10.9 E/E' med: 10.4 MV E/A: 0.80 MV V2 max: 79.8 cm/sec MV dec slope: 220.5 cm/sec2 Ao V2 max: 131.6 cm/sec MV max P.6 mmHg Ao max P.9 mmHg MV V2 mean: 50.3 cm/sec Ao V2 mean: 90.6 cm/sec MV mean P.1 mmHg Ao mean P.7 mmHg MV V2 VTI: 27.8 cm Ao V2 VTI: 31.0 cm AV (velocity ratio): 0.79 AI max carlos: 425.7 cm/sec LV V1 max: 103.4 cm/sec MR max carlos: 585.9 cm/sec AI max P.7 mmHg LV V1 max P.3 mmHg MR max P.3 mmHg AI dec slope: 191.8 cm/sec2 LV V1 mean P.2 mmHg MR mean carlos: 503.9 cm/sec AI P1/2t: 650.2 msec LV V1 mean: 68.1 cm/sec MR mean P.6 mmHg LV V1 VTI: 24.4 cm MR VTI: 225.1 cm PA V2 max: 94.2 cm/sec TR max carlos: 253.5 cm/sec TR max P.7 mmHg ECHO/Echo Complete Interpretation Summary The left ventricular ejection fraction is 65 %. Bubble contrast study is negative for PFO/ASD. Moderate (2+) posteriorly directed mitral valve insufficiency. Moderate (2+) tricuspid valve insufficiency. Mild (1+) aortic valve insufficiency. Ordering Physician: Jesenia Powell Referring Physician: Lelo Christine Performed By: Isatu Valdivia, MEGAN, RVT
[2022-08-30 20:57] LABS: Magnesium 2.2 mg/dL (1.6-2.6)
[2022-08-30 21:02] VITALS: BP 155/77; PULSE 72; RESP 17; TEMP 36.8; O2SAT 99
[2022-08-30] MEDS: Atorvastatin Calcium 20 MG Tablet PO (21:16)
[2022-08-30] MEDS: 0.9% Normal Saline 1,000 ML 75 ML IV (21:23)
[2022-08-31] VITALS (8 sets, daily range): BP systolic 126–148; BP diastolic 61–78; PULSE 53–79; RESP 15–18; TEMP 36.3–36.9; O2SAT 97–100
[2022-08-31] MEDS: Levothyroxine 25 MCG TABLET PO (05:34)
--- NOTE | 2022-08-31 06:00 | MRI_ITS ---
STUDY: MRI BRAIN WITHOUT CONTRAST REASON FOR EXAM: Female, 77 years old. CVA TECHNIQUE: Standardized multiplanar fat and water weighted pulse sequences were obtained. COMPARISON: CTA brain August 30, 2022. CT brain February 16, 2018. FINDINGS: There is moderate cerebral atrophy with widening of the extra-axial spaces and ventricular dilatation. There are multiple white matter hyperintensities, distributed throughout the deep white matter tracts of the cerebral hemispheres, consistent with moderate chronic white matter ischemic changes. There is no evidence for recent intracranial ischemia or other cause of cytotoxic edema on diffusion weighted imaging (DWI). Normal bilateral basal ganglia. Normal thalami. There is no extra-axial fluid accumulation. Dilated perivascular spaces left greater than right. Near The anterior choroidal fissure. Normal flow voids within the major intracranial circulation suggesting patency by spin echo criteria. Normal sella turcica, pituitary gland, infundibular stalk, optic chiasm and hypothalamus. Normal tectal plate and pineal gland. Normal midbrain, jenniffer and medulla. Normal cerebellum. Normal basal cisterns. Normal bilateral temporal bones. Normal bilateral internal auditory canals. No demonstrated orbital abnormality, within the constraints of a routine brain study. Opacification right maxillary sinus. Normal calvarium and skull base. Normal visualized soft tissue structures. Normal visualized upper cervical spine. MRI/Brain without Contrast IMPRESSION: Right maxillary sinusitis. No acute disease. Electronically Signed: Zak Leigh MD at 17:36 EDT ,
[2022-08-31 07:08] LABS: Absolute Lymphocyte Count 1.73 X10^3/uL (0.83-4.51); Absolute Neutrophil Count 2.5 X10^3/uL (2.0-7.7); Basophil# 0.03 X10^3/uL; Basophil% 0.6 % (0-1); Eosinophil# 0.21 X10^3/uL; Eosinophils% 4.1 % (0-5); Hematocrit 39.4 % (37-47); Hemoglobin 13.1 g/dL (12.0-15.0); Lymphocyte # 1.73 X10^3/ul (0.83-4.51); Lymphocyte % 33.7 % (19-41); Mean Corp Hgb Conc 33.2 g/dL (32-36); Mean Corpuscular Hgb 30.6 pg (27.0-32.0); Mean Corpuscular Volume 92.1 fL (81-99); Mean Platelet Vol. 9.5 fl (6.2-12.0); Monocyte# 0.62 X10^3/uL; Monocyte% 12.1 % (0-10); NRBC Flagged by Analyzer 0 % (0-5); Neutrophil # 2.53 X10^3/uL (2.7-7.7); Neutrophil % 49.3 % (47-70); Platelet Count 239 K/mm3 (150-450); RBC Distribution Width CV 13.5 % (11.6-14.6); RBC Distribution Width SD 46.1 fl (35.1-43.9); Red Blood Count 4.28 M/mm3 (4.2-5.4); White Blood Count 5.1 K/mm3 (4.4-11.0)
[2022-08-31 07:52] LABS: ALB/GLOB Ratio 1.2 RATIO (0.9-2.4); AST(SGOT) 18 U/L (15-37); Alanine Aminotransfer ALT/SGPT 25 U/L (13-56); Albumin, Serum 3.3 g/dL (3.2-5.0); Alkaline Phosphatase 69 U/L (45-117); Anion Gap 8 (5-15); BUN 14 mg/dL (7-18); BUN/Creat Ratio 20.9 RATIO (10-20); Calcium,Total 8.8 mg/dL (8.5-10.1); Chloride 111 mmol/L (98-107); Cholesterol 177 mg/dL (200); Creatinine, Serum 0.67 mg/dL (0.55-1.02); EST Glomerular Filtration Rate 90 mL/min (>60); Est Glom Filt Rate - Afr Amer 109 mL/min (>60); Estimated Creatinine Clearance 40.47 ml/min; Globulin 2.8 g/dL (2.2-4.2); Glucose 89 mg/dL (74-106); High Density Lipoprotein 77 mg/dL; Potassium 3.7 mmol/L (3.5-5.1); Protein, Total 6.1 g/dL (6.4-8.2); Sodium Level 143 mmol/L (136-145); T4 Free Direct 1.04 ng/dL (0.76-1.46); Thyroid Stim Hormone (TSH) 3.18 uIU/mL (0.358-3.74); Triglycerides 45 mg/dL; Very Low Density Lipoprotein 9 mg/dL (5-40)
[2022-08-31] MEDS: Aspirin 81 MG TAB.CHEW PO (08:50)
--- NOTE | 2022-08-31 08:59 | PCM.PN.HOSP ---
Reason for Visit Reason for Visit: Diagnoses Aphasia (08/30/22) Subjective Subjective Patient is a 77-year-old lady admitted with expressive aphasia admitted to monitored bed currently undergoing work-up for possible CVA Objective Data Objective Data Vital Signs: Vital Signs Temp Pulse Resp BP Pulse Ox O2 Del Method 98.5 F 68 18 141/72 H 100 Room Air 08/31/22 08:45 08/31/22 08:45 08/31/22 08:45 08/31/22 08:45 08/31/22 08:45 08/31/22 08:45 Oxygen Delivery Method Room Air Weight: 56.2 kg Body Mass Index (BMI) 20.0 Intake & Output: Intake and Output for Last 24 Hours 08/29/22 08/30/22 08/31/22 23:59 23:59 23:59 Intake Total 861.25 / 861.25 Balance 861.25 / 861.25 Lab / Micro Data Result Diagrams: 08/31/22 06:55 08/31/22 06:55 Labs: Laboratory Results - last 24 hr 08/30/22 17:20: WBC 7.3, RBC 4.37, Hgb 13.1, Hct 39.9, MCV 91.3, MCH 30.0, MCHC 32.8, RDW Std Deviation 45.4 H, RDW Coeff of Rajesh 13.3, Plt Count 284, MPV 9.8, Immature Gran % (Auto) 0.100, Neut % (Auto) 59.6, Lymph % (Auto) 27.5, [place] % (Auto) 9.5, Eos % (Auto) 3.0, Baso % (Auto) 0.3, Absolute Neuts (auto) 4.3, Absolute Lymphs (auto) 2.00, Nucleated RBC % 0 08/30/22 17:20: PT 12.7, INR 1.0, APTT 24.6 08/30/22 17:20: Sodium 142, Potassium 4.0, Chloride 109 H, Carbon Dioxide 27.0, Anion Gap 6, BUN 19 H, Creatinine 0.90, Estim Creat Clear Calc 43.29, Est GFR (MDRD) Af Amer 78, Est GFR (MDRD) Non-Af 65, BUN/Creatinine Ratio 21.2 H, Glucose 101, Calcium 9.2, Troponin I High Sens 31 08/30/22 17:20: Magnesium 2.2 08/30/22 18:07: Urine Color Yellow, Urine Clarity Clear, Urine pH 7.0, Ur Specific [place] 1.010, Urine Protein Negative, Urine Glucose (UA) Normal, Urine Ketones Negative, Urine Occult Blood 10 H, Urine Nitrite Negative, Urine Bilirubin Negative, Urine Urobilinogen Normal, Ur Leukocyte Esterase Negative, Urine RBC 0 SEEN, Urine WBC 0 SEEN, Ur Squamous Epith Cells 0 SEEN, Urine Bacteria 0 SEEN, Urine Mucus 0 SEEN 08/31/22 06:55: WBC 5.1, RBC 4.28, Hgb 13.1, Hct 39.4, MCV 92.1, MCH 30.6, MCHC 33.2, RDW Std Deviation 46.1 H, RDW Coeff of Rajesh 13.5, Plt Count 239, MPV 9.5, Immature Gran % (Auto) 0.200, Neut % (Auto) 49.3, Lymph % (Auto) 33.7, [place] % (Auto) 12.1 H, Eos % (Auto) 4.1, Baso % (Auto) 0.6, Absolute Neuts (auto) 2.5, Absolute Lymphs (auto) 1.73, Nucleated RBC % 0 08/31/22 06:55: Sodium 143, Potassium 3.7, Chloride 111 H, Carbon Dioxide 24.0, Anion Gap 8, BUN 14, Creatinine 0.67, Estim Creat Clear Calc 40.47, Est GFR (MDRD) Af Amer 109, Est GFR (MDRD) Non-Af 90, BUN/Creatinine Ratio 20.9 H, Glucose 89, Calcium 8.8, Total Bilirubin 0.40, AST 18, ALT 25, Alkaline Phosphatase 69, Total Protein 6.1 L, Albumin 3.3, Globulin 2.8, Albumin/Globulin Ratio 1.2, Triglycerides 45, Cholesterol 177, LDL Cholesterol 91, VLDL Cholesterol 9, HDL Cholesterol 77, TSH 3.18, Free T4 1.04 Radiography Diagnostic Testing: Radiology Impression Head/Neck CTA 08/30/22 18:10 IMPRESSION: No acute intracranial findings. No acute vascular injury or significant stenosis in the head or neck. Chronic right maxillary sinusitis. N.B. : The above Results were Read Back by Ashish Marino MD to Mikki Pemberton MD, and understanding confirmed on 08/30/2022 18:35:51 (ET). Electronically Signed: Ashish Marino MD at 18:38 EDT , ADDENDUM: 08/30/22 1845 IMPRESSION: No acute intracranial findings. No acute vascular injury or significant stenosis in the head or neck. Chronic right maxillary sinusitis. N.B. : The above Results were Read Back by Ashish Marino MD to Mikki Pemberton MD, and understanding confirmed on 08/30/2022 18:35:51 (ET). Electronically Signed: Ashish Marino MD at 18:38 EDT , Chest X-Ray 08/30/22 18:14 IMPRESSION: No acute cardiopulmonary disease. Stable chest. Electronically Signed: Ashish Marino MD at 18:42 EDT , Physical Exam Narrative GENERAL: cooperative HEENT: Atraumatic; normocephalic EYES; Anicteric, Normal Conjunctiva NECK; supple, normal thyroid, RESPIRATORY: Diminished to auscultation CARDIOVASCULAR: Regular S1 S2, GI: soft, normoactive bowel sounds, : No Renal angle tenderness; EXTREMITIES: No edema, no clubbing, MUSCULOSKELETAL: no muscle wasting NEURO: Awake; no lateralizing signs. SKIN: No Rash PSYCH; Flat affect Assessment & Plan Assessment/Plan (1) Expressive aphasia: PLAN: Plan Patient is a 77-year-old lady admitted with expressive aphasia admitted to monitored bed currently undergoing work-up for possible CVA 1. Expressive aphasia ? Patient admitted to a monitored bed placed on every 4 neurochecks MRI ordered to rule out acute CVA 2. Essential hypertension ? Patient blood pressure was elevated on admission has since stabilized 3. Hypothyroidism - Patient is on levothyroxine home dose continued 4. DVT prophylaxis - On enoxaparin Time spent in the patient's overall evaluation,decision-making process, review of diagnostic data, adjustment of management, discussion with other providers, nursing nursing and ancillary staff involved in patient's care documentation, 40 minutes minutes Charges/Coding Visit Charges Inpatient E&M: 73097 Subs Hosp L2
[2022-08-31 09:14] LABS: Hemoglobin A1c 5.5 % (3.8-5.6)
--- NOTE | 2022-08-31 11:45 | CASEMGMT ---
RN CM Face to Face with patient for initial transition planning/care coordination assessment. RN CM introduced self and role at [facility]. Patient lying in bed, alert and oriented. Patient willing to participate in assessment and is able to answer all questions appropriately. Care providers, pharmacy, and demographics verified. Patient wishes to discharge home, denies need for home health at this time. Patient states she has no further needs or concerns at this time. CM to follow for discharge planning needs that may arise. PCP: Emmett Specialists: [facility] Preferred Pharmacy: [facility] Insurance: [employer] [facility] Prescription Benefit: yes Living Will/HPOA: yes, daughters Bobbi and Sabiha LNOK: daughter Living Arrangements: Patient lives alone in a 1.5 story home with bed and bath on first floor, 2 steps and railing to enter the home. Patient states she is independent at home. Transportation: self, daughter DME/HHC: Patient has cane and walker at home. No previous HHC or SNF Disposition Plan: Patient to discharge home with family support and follow-up plans in place. Bisi RIOS, RN, CM
--- NOTE | 2022-08-31 15:22 | DS.PCM_ITS ---
Providers Date of Admission: 08/30/22 Date of Discharge: 08/31/22 Primary Care Physician: Dr. Lelo Christine MD Reason For Visit: CVA Diagnosis Discharge Diagnosis (1) Expressive aphasia: Status: Acute Code(s): R47.01 - Aphasia Plan Patient is a 77-year-old lady admitted with expressive aphasia admitted to monitored bed currently undergoing work-up for possible CVA 1. Expressive aphasia ? Patient admitted to a monitored bed placed on every 4 neurochecks MRI ordered to rule out acute CVA ? Patient underwent MRI which was negative for CVA 2. Essential hypertension ? Patient blood pressure was elevated on admission has since stabilized 3. Hypothyroidism - Patient is on levothyroxine home dose continued 4. DVT prophylaxis - On enoxaparin Time spent in the patient's overall evaluation,decision-making process, review of diagnostic data, adjustment of management, discussion with other providers, nursing nursing and ancillary staff involved in patient's care documentation, 40 minutes minutes Medications at Discharge Home Medications ibuprofen 600 mg tablet 600 mg PO Q6H PRN pain #30 tabs 04/12/20 levothyroxine 25 mcg tablet 25 mcg PO DAILY hypothyroid 08/30/22 aspirin 81 mg chewable tablet 81 mg PO BREAKFAST #60 tabs 08/31/22 atorvastatin 20 mg tablet 20 mg PO QHS #60 tabs 08/31/22 Hospital Course Summary of Care Provided Minutes Spent on Discharge: 40 Physical Exam Narrative GENERAL: cooperative HEENT: Atraumatic; normocephalic EYES; Anicteric, Normal Conjunctiva NECK; supple, normal thyroid, RESPIRATORY: Diminished to auscultation CARDIOVASCULAR: Regular S1 S2, GI: soft, normoactive bowel sounds, : No Renal angle tenderness; EXTREMITIES: No edema, no clubbing, MUSCULOSKELETAL: no muscle wasting NEURO: Awake; no lateralizing signs. SKIN: No Rash PSYCH; Flat affect Weight / BMI Weight Weight: 56.2 kg Body Mass Index (BMI) 20.0 ABG / Lab / Microbiology Data Result Diagrams: 08/31/22 06:55 08/31/22 06:55 Laboratory: Laboratory Results - last 24 hr 08/30/22 17:20: WBC 7.3, RBC 4.37, Hgb 13.1, Hct 39.9, MCV 91.3, MCH 30.0, MCHC 32.8, RDW Std Deviation 45.4 H, RDW Coeff of Rajesh 13.3, Plt Count 284, MPV 9.8, Immature Gran % (Auto) 0.100, Neut % (Auto) 59.6, Lymph % (Auto) 27.5, [place] % (Auto) 9.5, Eos % (Auto) 3.0, Baso % (Auto) 0.3, Absolute Neuts (auto) 4.3, Absolute Lymphs (auto) 2.00, Nucleated RBC % 0 08/30/22 17:20: PT 12.7, INR 1.0, APTT 24.6 08/30/22 17:20: Sodium 142, Potassium 4.0, Chloride 109 H, Carbon Dioxide 27.0, Anion Gap 6, BUN 19 H, Creatinine 0.90, Estim Creat Clear Calc 43.29, Est GFR (MDRD) Af Amer 78, Est GFR (MDRD) Non-Af 65, BUN/Creatinine Ratio 21.2 H, Glucose 101, Calcium 9.2, Troponin I High Sens 31 08/30/22 17:20: Magnesium 2.2 08/30/22 18:07: Urine Color Yellow, Urine Clarity Clear, Urine pH 7.0, Ur Specific [place] 1.010, Urine Protein Negative, Urine Glucose (UA) Normal, Urine Ketones Negative, Urine Occult Blood 10 H, Urine Nitrite Negative, Urine Bilirubin Negative, Urine Urobilinogen Normal, Ur Leukocyte Esterase Negative, Urine RBC 0 SEEN, Urine WBC 0 SEEN, Ur Squamous Epith Cells 0 SEEN, Urine Bacteria 0 SEEN, Urine Mucus 0 SEEN 08/31/22 06:55: WBC 5.1, RBC 4.28, Hgb 13.1, Hct 39.4, MCV 92.1, MCH 30.6, MCHC 33.2, RDW Std Deviation 46.1 H, RDW Coeff of Rajesh 13.5, Plt Count 239, MPV 9.5, Immature Gran % (Auto) 0.200, Neut % (Auto) 49.3, Lymph % (Auto) 33.7, [place] % (Auto) 12.1 H, Eos % (Auto) 4.1, Baso % (Auto) 0.6, Absolute Neuts (auto) 2.5, Absolute Lymphs (auto) 1.73, Nucleated RBC % 0 08/31/22 06:55: Sodium 143, Potassium 3.7, Chloride 111 H, Carbon Dioxide 24.0, Anion Gap 8, BUN 14, Creatinine 0.67, Estim Creat Clear Calc 40.47, Est GFR (MDRD) Af Amer 109, Est GFR (MDRD) Non-Af 90, BUN/Creatinine Ratio 20.9 H, Glucose 89, Calcium 8.8, Total Bilirubin 0.40, AST 18, ALT 25, Alkaline Phosphatase 69, Total Protein 6.1 L, Albumin 3.3, Globulin 2.8, Albumin/Globulin Ratio 1.2, Triglycerides 45, Cholesterol 177, LDL Cholesterol 91, VLDL Cholesterol 9, HDL Cholesterol 77, TSH 3.18, Free T4 1.04 08/31/22 06:55: Hemoglobin A1c 5.5 Radiography Diagnostic Testing: Radiology Impression Head/Neck CTA 08/30/22 18:10 IMPRESSION: No acute intracranial findings. No acute vascular injury or significant stenosis in the head or neck. Chronic right maxillary sinusitis. N.B. : The above Results were Read Back by Ashish Marino MD to Mikki Pemberton MD, and understanding confirmed on 08/30/2022 18:35:51 (ET). Electronically Signed: Ashish Marino MD at 18:38 EDT , ADDENDUM: 08/30/22 1845 IMPRESSION: No acute intracranial findings. No acute vascular injury or significant stenosis in the head or neck. Chronic right maxillary sinusitis. N.B. : The above Results were Read Back by Ashish Marino MD to Mikki Pemberton MD, and understanding confirmed on 08/30/2022 18:35:51 (ET). Electronically Signed: Ashish Marino MD at 18:38 EDT , Chest X-Ray 08/30/22 18:14 IMPRESSION: No acute cardiopulmonary disease. Stable chest. Electronically Signed: Ashish Marino MD at 18:42 EDT , Echocardiogram 08/30/22 20:29 Interpretation Summary The left ventricular ejection fraction is 65 %. Bubble contrast study is negative for PFO/ASD. Moderate (2+) posteriorly directed mitral valve insufficiency. Moderate (2+) tricuspid valve insufficiency. Mild (1+) aortic valve insufficiency. Ordering Physician: Jesenia Powell Referring Physician: Lelo Christine Performed By: Isatu Valdivia RDCS, RVT D/C Instructions Discharge Diet: No restrictions Discharge Activity: Return to Normal Activity Call your doctor if you observe: Fever of 101 or Higher, Shortness of breath, Fainting spells and Chest pain Meaningful Use Info Meaningful Use Diagnoses (Choose all that apply): None applicable Discharge Plan Admission Admit Date/Time: 08/30/22 19:38 Attending Provider: Shaw Frances Primary Care Provider: Lelo Christine Consulting Providers: Jesenia Powell Discharge Orders/Prescriptions Prescriptions: New aspirin 81 mg Tablet,Chewable 81 mg PO BREAKFAST Qty: 60 0RF atorvastatin 20 mg Tablet 20 mg PO QHS Qty: 60 0RF Continued ibuprofen 600 mg tablet 600 mg PO Q6H PRN (Reason: pain) Qty: 30 0RF levothyroxine 25 mcg tablet 25 mcg PO DAILY Referrals / Follow Up: Lelo Christine MD [Primary Care Provider] - Within 1 Week Disposition Disposition (needs filled in before D/C Order can be placed): Home, Self Care Charges/Coding Visit Charges Inpatient E&M: 92820 Disch Hosp >30min
== END 2022-08-31 18:30 | disposition home or self-care (01) | DRG 93 ==
LOC: ED 19:19 → PCU 19:59
PROVIDERS: Admitting Provider Family Medicine; Emergency Provider Emergency Medicine; PCP Family Medicine; Visit Provider Internal Medicine
DX: R47.01 Aphasia (principal); E03.9 Hypothyroidism, unspecified; J32.0 Chronic maxillary sinusitis; N18.2 Chronic kidney disease, stage 2 (mild); I12.9 Hypertensive chronic kidney disease with stage 1 through stage 4 chronic kidney disease, or unspecified chronic kidney disease; R47.9 Unspecified speech disturbances
CPT/HCPCS: 36415; 70496; 70498; 70551; 71045; 80048; 80053; 80061; 81001; 83036; 83735; 84439; 84443; 84484; 85025; 85610; 85730; 93005; 93306; 94668; 94762; 99284; J7030; Q9967

== ENCOUNTER 2023-04-24 03:26 | Emergency (ER) | payer MEDICARE, SELFPAY ==
[2023-04-24 03:29] VITALS: BP 136/64; PULSE 88; RESP 32; TEMP 36.1; O2SAT 96; BMI 20.4
[2023-04-24 03:34] VITALS: BMI 20.4
--- NOTE | 2023-04-24 03:38 | RAD_ITS ---
EXAM: XR CHEST, 1 VIEW CLINICAL INDICATION: stroke TECHNIQUE: Frontal view of the chest. COMPARISON: Single view chest 08/30/2022 FINDINGS: LUNGS AND PLEURAL SPACES: Unremarkable. No consolidation or edema. No pneumothorax. No effusion. HEART: Unremarkable. Cardiac silhouette not enlarged. MEDIASTINUM: Central airways and mediastinal contour are unremarkable. BONES/JOINTS: Dextrocurvature of the lower thoracic spine. No acute fracture. SOFT TISSUES: Unremarkable. RAD/Chest 1 View (Portable) IMPRESSION: No acute findings in the chest. Electronically Signed: Tushar Owens MD at 4:26 EST ,
--- NOTE | 2023-04-24 03:38 | CT_ITS ---
EXAM: CT HEAD WITHOUT INTRAVENOUS CONTRAST CLINICAL INDICATION: injury TECHNIQUE: Multiple axial images were obtained of the head without intravenous contrast. This CT exam was performed using one or more of the following dose reduction techniques: automated exposure control, adjustment of the mA and/or kV according to patient size, and/or use of iterative reconstruction technique. RADIATION DOSE: CTDIvol = 44.99 mGy, DLP = 779.24 mGy-cm COMPARISON: Head CT 08/30/2022 FINDINGS: BRAIN AND EXTRA-AXIAL SPACES: Diffuse cerebral volume loss. Periventricular small vessel ischemic changes. No intra- or extra-axial hemorrhage. No intracranial mass or mass effect. Posterior fossa structures are unremarkable. No hydrocephalus. Basal cisterns are patent. BONES/JOINTS: Unremarkable. No discrete lytic or blastic abnormalities. VASCULATURE: Vascular calcifications. SINUSES: Chronic right maxillary sinus opacification. MASTOID AIR CELLS: Unremarkable. Clear. ORBITS: Visualized globes, extraocular muscles, optic nerves and retrobulbar fat appear unremarkable. CT/Brain/Head without Contrast IMPRESSION: 1. No acute intracranial abnormalities. 2. Age-related changes. Electronically Signed: Tushar Owens MD at 4:23 EST ,
--- NOTE | 2023-04-24 03:39 | EKG12_ITS ---
Test Reason : DYSRHYTHMIA Blood Pressure : / mmHG Vent. Rate : 082 BPM Atrial Rate : 082 BPM P-R Int : 154 ms QRS Dur : 090 ms QT Int : 368 ms P-R-T Axes : 047 -22 093 degrees QTc Int : 429 ms Normal sinus rhythm Nonspecific T wave abnormality Abnormal ECG Confirmed by JEAN-PIERRE IVORY, YING ([id number]), photo editor MAGDA RODRIGUEZ ([id number]) on 05/01/2023 8:10:03 AM Referred By: Confirmed By:YING MOREJON MD
--- NOTE | 2023-04-24 03:41 | EX.ED.DYSGE1 ---
HPI History of Present Illness Chief Complaint: Neuro S/Sx Informant: patient and family Narrative Narrative: 77-year-old female presenting with her daughter chief complaint of confusion. Patient noted today to be confused/difficulty with words. Example of this is that the patient asked if the dogs are let out but the family has cats. Patient has been laughing at inappropriate things. She makes comments that are unrelated to events around her. She has had to have assistance getting to the bathroom. Reportedly fell tonight while in the kitchen. It was unwitnessed. Daughter states that she must of hit her head. It was reported the patient had a headache and received 3 ibuprofen. Patient states that she is not having any pain currently. Nursing triage assessment shows an NIH of 0. No reported fevers. Patient's daughter is with her and is a reliable friendly source of information. [facility] Medical History History of CVA (cerebrovascular accident) Hypothyroid Skin cancer Home Medications ibuprofen 600 mg tablet 600 mg PO Q6H PRN pain #30 tabs 04/12/20 [Rx Last Taken Unknown] levothyroxine 25 mcg tablet 25 mcg PO DAILY hypothyroid 08/30/22 [History Last Taken Unknown] aspirin 81 mg chewable tablet 81 mg PO BREAKFAST #60 tabs 08/31/22 [Rx Last Taken Unknown] rosuvastatin 10 mg tablet (Crestor) 10 mg PO DAILY 01/11/23 [History Last Taken Unknown] Allergy/AdvReac Type Severity Reaction Status Date / Time sulfamethoxazole AdvReac Vomiting Verified 04/24/23 03:28 [From Bactrim] trimethoprim [From Bactrim] AdvReac Vomiting Verified 04/24/23 03:28 Family History Mother Abdominal aortic aneurysm Heart disease Uncle Abdominal aortic aneurysm Brother Abdominal aortic aneurysm Father Leukemia 59 secondary to Leukemia. Surgical History History of rotator cuff surgery skin cancer removal Social History Smoking Status: Never smoker alcohol intake: never substance use type: does not use caffeine: Yes what type of physical activity do you participate in: walking seatbelt use: always do you feel safe at home: Yes additional social history: - retired ROS ROS ED ROS Narrative Generalized weakness. Constitutional Constitutional ED: Denies chills, fever(s) or weight loss Eyes Eyes: Denies change in vision or diplopia ENT ENT ED: Denies ear pain, rhinorrhea or sore throat Cardiovascular Cardiovascular: Denies chest pain, orthopnea, palpitations or racing heartbeat Respiratory/Chest Respiratory/Chest: Denies cough, dyspnea or orthopnea Gastrointestinal Gastrointestinal: Denies abdominal pain, diarrhea, nausea or vomiting Genitourinary Genitourinary ED: Denies dysuria, hematuria or urinary frequency Musculoskeletal Musculoskeletal: Denies arthralgias or myalgias Integumentary Denies abscess or rash Neurologic Neurologic: Reports headache(s) and other Details: Confusion ; Denies weakness Psychiatric Psychiatric: Denies anxiety, depression, suicidal ideation or suicidal thoughts Endocrine Endocrinology: Denies polydipsia, polyphagia or polyuria Allergic/Immunologic Allergic/Immunologic ED: Denies mouth swelling, tongue swelling or urticaria EXAM Physical Exam Const Vital Signs: 04/24/23 03:29 04/24/23 05:38 04/24/23 06:47 Temperature 97 F L Temperature Source Temporal Pulse Rate 88 62 85 Respiratory Rate 32 H 14 17 Blood Pressure 136/64 H 129/66 H 138/76 H Blood Pressure Mean 88 87 96 Pulse Ox 96 96 97 Oxygen Delivery Method Room Air Positive well nourished and well developed General Appearance ED: well developed HEENT Reports normocephalic, head/scalp atraumatic and moist mucous membranes Eyes PERRL and EOMs intact bilaterally Neck no lymphadenopathy, supple and no JVD Resp normal respiratory effort and clear to auscultation bilaterally Cardio regular rate, regular rhythm and no murmurs GI normal to inspection, nondistended, normoactive bowel sounds and non-tender Palpation: soft Back/Spine no CVA tenderness and normal ROM Extremity normal to inspection General Extremety ED: Negative for edema General Extremity: Negative for edema Neuro oriented x3 and CN's II-XII intact bilaterally Neuro Narrative: Patient's GCS is 15. She is alert she knows her name where she is at and that is [place]. Patient does seem to have inappropriate affect at times. Sensorium / Orientation: alert Motor Exam: strength 5/5 throughout Psych Mood & Affect: Negative for depressed or tearful Skin no rashes or lesions noted and no wounds MDM MDM MDM Narrative Medical decision making narrative: CT the brain shows nothing acute. Basic blood work essentially negative. Glucose of 116 hemoglobin 11.7. Urinalysis shows no overt infection. Patient has been up able to ambulate to the bathroom with some assist. At this point I am not seeing any stroke syndrome. Her NIH is 0. I do wonder if the patient has dementia and some sundowning. I spoke at length with the patient and her daughter. Advised follow-up return if worsening. History & Record Review Discussion w/independent historian: Patient and Family Lab Data Attestation: I reviewed the patient's lab results. Labs: Laboratory Results - last 24 hr 04/24/23 04/24/23 03:30 04:16 WBC 6.1 RBC 3.97 L Hgb 11.7 L Hct 36.7 L MCV 92.4 MCH 29.5 MCHC 31.9 L RDW Std Deviation 46.6 H RDW Coeff of Rajesh 13.7 Plt Count 213 MPV 9.8 Immature Gran % (Auto) 0.300 Neut % (Auto) 72.1 H Lymph % (Auto) 10.4 L [place] % (Auto) 15.7 H Eos % (Auto) 0.8 Baso % (Auto) 0.7 Absolute Neuts (auto) 4.4 Absolute Lymphs (auto) 0.63 L Nucleated RBC % 0 Sodium 137 Potassium 4.0 Chloride 107 Carbon Dioxide 23.0 Anion Gap 7 BUN 16 Creatinine 0.88 Estim Creat Clear Calc 46.97 Est GFR (MDRD) Af Amer 80 Est GFR (MDRD) Non-Af 66 BUN/Creatinine Ratio 18.3 Glucose 116 H Calcium 8.1 L Total Bilirubin 0.20 AST 23 ALT 29 Alkaline Phosphatase 96 Troponin I High Sens 50 Total Protein 6.3 L Albumin 3.5 Globulin 2.8 Albumin/Globulin Ratio 1.2 Urine Color Yellow Urine Clarity Clear Urine pH 8.0 Ur Specific [place] 1.010 Urine Protein Negative Urine Glucose (UA) Normal Urine Ketones Negative Urine Occult Blood 25 H Urine Nitrite Negative Urine Bilirubin Negative Urine Urobilinogen Normal Ur Leukocyte Esterase Negative Urine RBC 5-10 SEEN Urine WBC 0 SEEN Ur Squamous Epith Cells 0 SEEN Urine Bacteria 0 SEEN Urine Mucus 0 SEEN Radiography Diagnostic Testing: Clinical Impression(s) from Imaging Studies Brain CT 04/24/23 03:38 IMPRESSION: 1. No acute intracranial abnormalities. 2. Age-related changes. Electronically Signed: Tushar Owens MD at 4:23 EST Reading Location ID and State: [facility] / [place] Tel , Service support , Chest X-Ray 04/24/23 03:38 IMPRESSION: No acute findings in the chest. Electronically Signed: Tushar Owens MD at 4:26 EST , EKG Initial EKG: Attestation: I personally reviewed and interpreted this EKG as follows: Comments: Normal sinus rhythm with a ventricular rate of 82 bpm Discharge Plan Triage Chief Complaint: Neuro S/Sx ED Provider: Tacho Saldivar Dx/Rx/DC Orders Clinical Impression: Acute confusional state, Fall Instructions: Dementia Caregiver Tips, ED Confusion, ED CAREGIVER SUPPORT for DEMENTIA Prescriptions: No Action ibuprofen 600 mg tablet 600 mg PO Q6H PRN (Reason: pain) Qty: 30 0RF rosuvastatin [Crestor] 10 mg tablet 10 mg PO DAILY levothyroxine 25 mcg tablet 25 mcg PO DAILY aspirin 81 mg Tablet,Chewable 81 mg PO BREAKFAST Qty: 60 0RF Primary Care Provider: Lelo Christine Referrals: Lelo Christine MD [Primary Care Provider] - As soon as possible Activity Restrictions/Additional Instructions: Please return to emergency if any concerns or worsening. Disposition Disposition: Home, Self Care Discharge Date/Time: 04/24/23 06:48
[2023-04-24 03:48] LABS: Absolute Lymphocyte Count 0.63 X10^3/uL (0.83-4.51); Absolute Neutrophil Count 4.4 X10^3/uL (2.0-7.7); Basophil# 0.04 X10^3/uL; Basophil% 0.7 % (0-1); Eosinophil# 0.05 X10^3/uL; Eosinophils% 0.8 % (0-5); Hematocrit 36.7 % (37-47); Hemoglobin 11.7 g/dL (12.0-15.0); Lymphocyte # 0.63 X10^3/ul (0.83-4.51); Lymphocyte % 10.4 % (19-41); Mean Corp Hgb Conc 31.9 g/dL (32-36); Mean Corpuscular Hgb 29.5 pg (27.0-32.0); Mean Corpuscular Volume 92.4 fL (81-99); Mean Platelet Vol. 9.8 fl (6.2-12.0); Monocyte# 0.95 X10^3/uL; Monocyte% 15.7 % (0-10); NRBC Flagged by Analyzer 0 % (0-5); Neutrophil # 4.36 X10^3/uL (2.7-7.7); Neutrophil % 72.1 % (47-70); Platelet Count 213 K/mm3 (150-450); RBC Distribution Width CV 13.7 % (11.6-14.6); RBC Distribution Width SD 46.6 fl (35.1-43.9); Red Blood Count 3.97 M/mm3 (4.2-5.4); White Blood Count 6.1 K/mm3 (4.4-11.0)
[2023-04-24 04:09] LABS: ALB/GLOB Ratio 1.2 RATIO (0.9-2.4); AST(SGOT) 23 U/L (15-37); Alanine Aminotransfer ALT/SGPT 29 U/L (13-56); Albumin, Serum 3.5 g/dL (3.2-5.0); Alkaline Phosphatase 96 U/L (45-117); Anion Gap 7 (5-15); BUN 16 mg/dL (7-18); BUN/Creat Ratio 18.3 RATIO (10-20); Calcium,Total 8.1 mg/dL (8.5-10.1); Chloride 107 mmol/L (98-107); Creatinine, Serum 0.88 mg/dL (0.55-1.02); EST Glomerular Filtration Rate 66 mL/min (>60); Est Glom Filt Rate - Afr Amer 80 mL/min (>60); Estimated Creatinine Clearance 46.97 ml/min; Globulin 2.8 g/dL (2.2-4.2); Glucose 116 mg/dL (74-106); Protein, Total 6.3 g/dL (6.4-8.2); Sodium Level 137 mmol/L (136-145); Troponin-I HS 50 pg/mL (3.0-54.0)
[2023-04-24 04:21] LABS: Bacteria 0 SEEN /hpf (None Seen); Mucous, Urine 0 SEEN /hpf (<or=2+); Squamous Epithelial Cells - UA 0 SEEN /hpf (5-10); White Blood Cells 0 SEEN /hpf (0-5)
[2023-04-24 04:23] LABS: Color, Urine Yellow (Yellow); Glucose, Dipstick Normal (Normal); Ketone-Dipstick Negative (Negative); Leukocyte Esterase-Dipstick Negative /ul (Negative); Nitrite-Dipstick Negative (Negative); Occult Blood-Urine 25 /ul (Negative); Protein-Dipstick Negative (Negative); Urine Bilirubin Dipstick Negative (Negative); Urine Clarity Clear (Clear); Urine Urobilinogen Normal (Normal)
[2023-04-24 04:29] LABS: Red Blood Cells-Urine 5-10 SEEN /hpf (0-5)
[2023-04-24] MEDS: Ketorolac 15 MG/ML Vial IV (04:38)
[2023-04-24 05:38] VITALS: BP 129/66; PULSE 62; RESP 14; O2SAT 96
[2023-04-24 06:47] VITALS: BP 138/76; PULSE 85; RESP 17; O2SAT 97
--- OUTSIDE RECORDS SUMMARY | 2023-04-25 19:04 | XMS RPT_ITS | CCD ---
Author Name Unknown Address [address] [place] [address] Organization [facility] Care Team Providers Care Hotel And Dining Room Cashier Name Role Phone FRANCE WILLIAMSON Unavailable Unavailable Encounters Encounter Date Encounter Type Care Provider Facility Start: 04-26-2018 End: 04-26-2018 Patient encounter procedure FRANCE WILLIAMSON Facility:B Payers Date Payer Category Payer Unknown [id number] 1945 Unknown [id number] Summary Purpose Family History No Family History Records Found Advance Directives No Advanced Directives Records Found Additional Source Comments INFORMATION SOURCE (unrecogn ized section and content) FOR RECORDS PERTAINING TO PATIENTS WHO ARE OR HAVE BEEN ENROLLED IN A CHEMICAL DEPENDENCY/SUBSTANCEABUSE PROGRAM, SOME INFORMATION MAY BE OMITTED. This clinical summary was aggregated from multiple sources. Caution should be exercised in using it in the provision of clinical care. This summary normalizes information from multiple sources, and as a consequence, information in this document may materially change the coding, format and clinical context of patient data. In addition, data may be omitted in some cases. CLINICAL DECISIONS SHOULD BE BASED ON THE PRIMARY CLINICAL RECORDS. [facility] [employer] [facility]. provides no warranty or guarantee of the accuracy or completeness of information in this document.
[2023-04-25 22:50] LABS: Bedside Glucose 100 mg/dL (74-106)
== END 2023-04-24 06:48 | disposition home or self-care (01) ==
PROVIDERS: Emergency Provider Emergency Medicine; PCP Family Medicine; Visit Provider Emergency Medicine
DX: F05 Delirium due to known physiological condition (principal); W19.XXXA Unspecified fall, initial encounter; Y92.89 Other specified places as the place of occurrence of the external cause; Z86.73 Personal history of transient ischemic attack (TIA), and cerebral infarction without residual deficits; E03.9 Hypothyroidism, unspecified; Z85.828 Personal history of other malignant neoplasm of skin; Z79.899 Other long term (current) drug therapy
CPT/HCPCS: 70450; 71045; 80053; 81001; 84484; 85025; 93005; A4216

== ENCOUNTER 2023-04-24 18:09 | Inpatient (IN) | payer MEDICARE, SELFPAY ==
[2023-04-24] VITALS (7 sets, daily range): BP systolic 116–140; BP diastolic 68–79; PULSE 71–91; RESP 18–28; TEMP 37.1–38.2; O2SAT 90–96; BMI 20.6
--- NOTE | 2023-04-24 19:20 | EKG12_ITS ---
Test Reason : DYSRHYTHMIA Blood Pressure : / mmHG Vent. Rate : 088 BPM Atrial Rate : 088 BPM P-R Int : 152 ms QRS Dur : 078 ms QT Int : 364 ms P-R-T Axes : 059 -27 078 degrees QTc Int : 440 ms Normal sinus rhythm Nonspecific ST abnormality Abnormal ECG Confirmed by JEAN-PIERRE IVORY, YING ([id number]), film or videotape editor MAGDA RODRIGUEZ ([id number]) on 05/01/2023 8:17:14 AM Referred By: CARRIE Confirmed By:YING MOREJON MD
--- NOTE | 2023-04-24 19:21 | EX.ED.DYSGE1 ---
HPI <EFFIE Kelly - Last Filed: 04/24/23 21:09> History of Present Illness Chief Complaint: General Illness Narrative Narrative: Patient is a 77-year-old female who lives at home with her daughter with history of slight dementia, hypothyroidism, chronic back pain who presents to the emergency department for altered mental status, fever and chills. Per the nursing staff, the patient has been much more confused today, is not eating and drinking. Patient is alert and oriented x 1 at this time. Patient is unsure who she lives with, she is unsure of the timeframe however she does know that Piero just was yesterday. PFSH <EFFIE Kelly - Last Filed: 04/24/23 21:09> [facility] Medical History History of CVA (cerebrovascular accident) Hypothyroid Skin cancer Home Medications ibuprofen 600 mg tablet 600 mg PO Q6H PRN pain #30 tabs 04/12/20 [Rx Last Taken Unknown] levothyroxine 25 mcg tablet 25 mcg PO DAILY hypothyroid 08/30/22 [History Last Taken Unknown] aspirin 81 mg chewable tablet 81 mg PO BREAKFAST #60 tabs 08/31/22 [Rx Last Taken Unknown] rosuvastatin 10 mg tablet (Crestor) 10 mg PO DAILY 01/11/23 [History Last Taken Unknown] Allergy/AdvReac Type Severity Reaction Status Date / Time sulfamethoxazole AdvReac Vomiting Verified 04/24/23 03:28 [From Bactrim] trimethoprim [From Bactrim] AdvReac Vomiting Verified 04/24/23 03:28 Family History Mother Abdominal aortic aneurysm Heart disease Uncle Abdominal aortic aneurysm Brother Abdominal aortic aneurysm Father Leukemia 59 secondary to Leukemia. Surgical History History of rotator cuff surgery skin cancer removal Social History Smoking Status: Never smoker alcohol intake: never substance use type: does not use caffeine: Yes what type of physical activity do you participate in: walking seatbelt use: always do you feel safe at home: Yes additional social history: - retired ROS <EFFIE Kelly - Last Filed: 04/24/23 21:09> ROS ED ROS Narrative Constitutional: Negative for weight loss. Positive fever, chills, weakness Eyes: Negative for vision loss, vision change, double vision ENT: Negative for any sore throat, ear pain, congestion Cardiovascular: Negative for any chest pain, tightness, palpitations Respiratory: Negative for any cough, sputum production, hemoptysis, dyspnea, dyspnea on exertion, orthopnea Gastrointestinal: Negative for any abdominal pain, nausea, vomiting, diarrhea, constipation, blood in stool, blood in vomit : Negative for any urinary frequency, dysuria, retention, blood in urine Muscle skeletal: Negative for any myalgias, arthralgias, neck pain, back pain Neurological: Negative for any headache, syncope, paresthesias, dizziness Skin: Negative for any rashes, lumps, itching, abrasions, lacerations Psychiatric: Negative for any depression, anxiety, stress, suicidal ideation, homicidal ideation Hematologic: Negative for any easy bruising, excessive bruising, easy bleeding Allergies: Negative for any eczema, hives, rash EXAM <EFFIE Kelly - Last Filed: 04/24/23 21:09> Physical Exam Narrative Exam Narrative: Vital signs reviewed. Patient alert and oriented x 1, patient says things are inappropriate like she lives with her mother. Per her daughters, they are concerned secondary to how altered she is. Patient is having difficulty ambulating around the house. Patient febrile on exam HEET: Head normocephalic atraumatic, TMs clear bilaterally. Posterior pharynx is clear, moist mucous membranes. Nares clear bilaterally. Neck: Supple with no lymphadenopathy or tenderness. No signs of meningismus. Cardiac: Regular rate and rhythm no murmurs gallops or rubs, equal peripheral pulses bilaterally. Respiratory: Lungs clear to auscultation bilaterally. No chest tenderness. Abdomen: Soft, nontender, nondistended. No abdominal bruit or pulsatile masses. No hepatosplenomegaly Extremities: No peripheral edema, no signs of gross trauma or deformity. Active full range of motion of all extremities. Neuro: Cranial nerves II through XII intact, no focal neurological deficits. Skin: Clean dry and intact with no rash, purpura, petechiae, vesicles or pustules. Backs/flank: No CVA tenderness, no midline spinal tenderness, no deformity. Psych: Normal mood and affect. No SI, HI or acute psychosis. Const Vital Signs: 04/24/23 18:13 04/24/23 18:44 04/24/23 19:29 Temperature 100.8 F H Temperature Source Temporal Pulse Rate 90 Respiratory Rate 18 Respiratory Effort Normal Respiratory Pattern Normal Blood Pressure 140/79 H Blood Pressure Mean 99 Pulse Ox 96 92 Oxygen Delivery Method Room Air Room Air 04/24/23 20:00 04/24/23 21:02 04/24/23 21:03 Temperature 99.5 F H 99.5 F H Temperature Source Oral Oral Pulse Rate 91 83 83 Respiratory Rate 28 H 20 H 24 H Respiratory Effort Respiratory Pattern Blood Pressure 139/72 H 122/68 H 122/68 H Blood Pressure Mean 94 86 86 Pulse Ox 90 91 91 Oxygen Delivery Method Room Air Room Air Positive well nourished and well developed General Appearance ED: well developed <Dr. Nico Marvin MD - Last Filed: 04/24/23 21:44> Physical Exam Const Vital Signs: 04/24/23 18:13 04/24/23 18:44 04/24/23 19:29 Temperature 100.8 F H Temperature Source Temporal Pulse Rate 90 Respiratory Rate 18 Respiratory Effort Normal Respiratory Pattern Normal Blood Pressure 140/79 H Blood Pressure Mean 99 Pulse Ox 96 92 Oxygen Delivery Method Room Air Room Air 04/24/23 20:00 04/24/23 21:02 04/24/23 21:03 Temperature 99.5 F H 99.5 F H Temperature Source Oral Oral Pulse Rate 91 83 83 Respiratory Rate 28 H 20 H 24 H Respiratory Effort Respiratory Pattern Blood Pressure 139/72 H 122/68 H 122/68 H Blood Pressure Mean 94 86 86 Pulse Ox 90 91 91 Oxygen Delivery Method Room Air Room Air MDM <EFFIE Kelly - Last Filed: 04/24/23 21:09> MDM Lab Data Labs: Laboratory Results - last 24 hr 04/24/23 04/24/23 18:58 19:00 WBC 6.1 RBC 3.92 L Hgb 11.5 L Hct 35.7 L MCV 91.1 MCH 29.3 MCHC 32.2 RDW Std Deviation 46.0 H RDW Coeff of Rajesh 13.7 Plt Count 207 MPV 9.8 Immature Gran % (Auto) 0.500 Neut % (Auto) 75.1 H Lymph % (Auto) 9.5 L Randall % (Auto) 14.4 H Eos % (Auto) 0.2 Baso % (Auto) 0.3 Absolute Neuts (auto) 4.6 Absolute Lymphs (auto) 0.58 L Nucleated RBC % 0 Differential Comment SCANNED PT 14.9 INR 1.2 APTT 26.5 Sodium 135 L Potassium 3.5 Chloride 104 Carbon Dioxide 23.0 Anion Gap 8 BUN 13 Creatinine 0.74 Estim Creat Clear Calc 41.81 Est GFR (MDRD) Af Amer 97 Est GFR (MDRD) Non-Af 80 BUN/Creatinine Ratio 17.5 Glucose 100 Lactic Acid 0.6 Calcium 8.4 L Total Bilirubin 0.30 AST 26 ALT 28 Alkaline Phosphatase 63 Total Protein 6.2 L Albumin 3.4 Globulin 2.8 Albumin/Globulin Ratio 1.2 Urine Color Yellow Urine Clarity Clear Urine pH 6.5 Ur Specific [place] 1.015 Urine Protein 30 H Urine Glucose (UA) Normal Urine Ketones 50 H Urine Occult Blood 150 H Urine Nitrite Negative Urine Bilirubin Negative Urine Urobilinogen 1 H Ur Leukocyte Esterase Negative Urine RBC 10-25 SEEN Urine WBC 0 SEEN Ur Squamous Epith Cells 0-5 SEEN Urine Bacteria RARE Urine Mucus 0 SEEN Radiography Diagnostic Testing: Clinical Impression(s) from Imaging Studies Chest X-Ray 04/24/23 19:55 IMPRESSION: Increased small left pleural effusion. Otherwise, no change from prior study. Electronically Signed: Raymon Thomas MD at 21:32 EST , EKG EKG shows normal sinus rhythm: Attestation: I personally reviewed and interpreted this EKG as follows: Comments: Normal sinus rhythm, rate of 88 bpm, DC 182 ms, QRS duration 78 ms, no acute ST elevation, no acute infarct noted Treatment and Re-Evaluation :: Patient arrives in no respiratory distress, however patient is altered, febrile. This has been ongoing for the last 2 to 3 days. Differential diagnosis includes acute sepsis, metabolic encephalopathy, urinary tract infection, COVID-19/influenza. Patient was seen here yesterday, worked up more for a stroke, this was negative she was sent home. Per the daughter, she was unable to get up and walk, she is worse today. Patient did receive a septic workup with 2 sets of blood cultures, lactic acid. IV fluids will be given. Two-view chest x-ray to be ordered. Patient EKG was unremarkable. Patient be given Tylenol, this will be for the fever. Patient CBC was unremarkable, this is consistent with the blood that was drawn at 330 this morning. Patient's PT/INR was within normal limits. Patient's chemistries were unremarkable, creatinine was 0.74, patient's urinalysis was negative for any infection, possibly showing some dehydration. Patient was given 1 L normal saline. Patient's chest x-ray is unremarkable. Patient's rapid COVID, influenza was positive for COVID-19. This does explain the patient's rigors, fever as well as weakness and encephalopathy. I spoke with Dr. Sanchez of hospitalist. He believes the patient stable for the floor. I spoke with the patient's daughter patient was redosed with ibuprofen per her request. All questions were answered, patient stable for admission. <Dr. Nico Marvin MD - Last Filed: 04/24/23 21:44> [facility] MDM Narrative Medical decision making narrative: I have personally performed a face to face assessment of the patient and have reviewed the HAKEEM Note. I performed a substantive portion of the visit including all aspects of the following. My russ findings include: History is 77-year-old female with fever and decreased mental status at home. Weakness. Exam is [send 7-year-old female no acute distress. Vital signs are stable. Initial temperature was 100.8. HEENT exam pupils round react light. No trauma. No droop. Normal speech. Neck nontender. Lungs clear to auscultation. Heart regular rhythm rate about 80. Abdomen soft nontender. Chest wall nontender. Back nontender. Pelvic girdle intact. Moving all 4 extremities. She is awake and alert. She is answering questions following commands.] Medical Decision Making [elderly female with fever bacterial versus viral illness. She will be admitted. Treated with IV fluids and Motrin.] Other additions or changes: [None] History & Record Review Discussion w/independent historian: Patient and Family Additional record(s) reviewed:: Prior inpatient record, Prior outpatient record, Prior ED visit and Prior labs Lab Data Attestation: I reviewed the patient's lab results. Lab results narrative: CBC white count of 6 H&H 11.5 and 35. Platelets 207. PT/INR 14 and 1. Electrolytes sodium 135 gap of 8 BUN 13 and creatinine of 0.7. Liver enzymes normal. Lactic acid 0.6 UA negative. Chest x-ray right neck. Labs: Laboratory Results - last 24 hr 04/24/23 04/24/23 18:58 19:00 WBC 6.1 RBC 3.92 L Hgb 11.5 L Hct 35.7 L MCV 91.1 MCH 29.3 MCHC 32.2 RDW Std Deviation 46.0 H RDW Coeff of Rajesh 13.7 Plt Count 207 MPV 9.8 Immature Gran % (Auto) 0.500 Neut % (Auto) 75.1 H Lymph % (Auto) 9.5 L Randall % (Auto) 14.4 H Eos % (Auto) 0.2 Baso % (Auto) 0.3 Absolute Neuts (auto) 4.6 Absolute Lymphs (auto) 0.58 L Nucleated RBC % 0 Differential Comment SCANNED PT 14.9 INR 1.2 APTT 26.5 Sodium 135 L Potassium 3.5 Chloride 104 Carbon Dioxide 23.0 Anion Gap 8 BUN 13 Creatinine 0.74 Estim Creat Clear Calc 41.81 Est GFR (MDRD) Af Amer 97 Est GFR (MDRD) Non-Af 80 BUN/Creatinine Ratio 17.5 Glucose 100 Lactic Acid 0.6 Calcium 8.4 L Total Bilirubin 0.30 AST 26 ALT 28 Alkaline Phosphatase 63 Total Protein 6.2 L Albumin 3.4 Globulin 2.8 Albumin/Globulin Ratio 1.2 Urine Color Yellow Urine Clarity Clear Urine pH 6.5 Ur Specific [place] 1.015 Urine Protein 30 H Urine Glucose (UA) Normal Urine Ketones 50 H Urine Occult Blood 150 H Urine Nitrite Negative Urine Bilirubin Negative Urine Urobilinogen 1 H Ur Leukocyte Esterase Negative Urine RBC 10-25 SEEN Urine WBC 0 SEEN Ur Squamous Epith Cells 0-5 SEEN Urine Bacteria RARE Urine Mucus 0 SEEN Radiography Diagnostic Testing: Clinical Impression(s) from Imaging Studies Chest X-Ray 04/24/23 19:55 IMPRESSION: Increased small left pleural effusion. Otherwise, no change from prior study. Electronically Signed: Raymon Thomas MD at 21:32 EST , Discharge Plan Dx/Rx/DC Orders Clinical Impression: COVID-19, Fever, Acute metabolic encephalopathy, Weakness Disposition Disposition: Acute Care [facility]
[2023-04-24] MEDS: Acetaminophen 500 MG Tablet 1000 MG PO (19:32)
[2023-04-24] MEDS: 0.9% Normal Saline (1000mL) 1,000 ML 999 ML IV (19:32)
[2023-04-24 19:35] LABS: Mucous, Urine 0 SEEN /hpf (<or=2+)
[2023-04-24 19:41] LABS: Absolute Lymphocyte Count 0.58 X10^3/uL (0.83-4.51); Absolute Neutrophil Count 4.6 X10^3/uL (2.0-7.7); Basophil# 0.02 X10^3/uL; Basophil% 0.3 % (0-1); Eosinophil# 0.01 X10^3/uL; Eosinophils% 0.2 % (0-5); Hematocrit 35.7 % (37-47); Hemoglobin 11.5 g/dL (12.0-15.0); Lymphocyte # 0.58 X10^3/ul (0.83-4.51); Lymphocyte % 9.5 % (19-41); Mean Corp Hgb Conc 32.2 g/dL (32-36); Mean Corpuscular Hgb 29.3 pg (27.0-32.0); Mean Corpuscular Volume 91.1 fL (81-99); Mean Platelet Vol. 9.8 fl (6.2-12.0); Monocyte# 0.88 X10^3/uL; Monocyte% 14.4 % (0-10); NRBC Flagged by Analyzer 0 % (0-5); Neutrophil % 75.1 % (47-70); POSITIVE DIFFERENTIAL YES; Platelet Count 207 K/mm3 (150-450); RBC Distribution Width CV 13.7 % (11.6-14.6); Red Blood Count 3.92 M/mm3 (4.2-5.4); White Blood Count 6.1 K/mm3 (4.4-11.0)
[2023-04-24 19:44] LABS: Differential Indicated SCAN CRITERIA MET
[2023-04-24 19:47] LABS: Partial Thromboplast Time 26.5 Seconds (24.1-36.2)
[2023-04-24 19:48] LABS: Color, Urine Yellow (Yellow); Glucose, Dipstick Normal (Normal); Ketone-Dipstick 50 mg/dl (Negative); Leukocyte Esterase-Dipstick Negative /ul (Negative); Nitrite-Dipstick Negative (Negative); Occult Blood-Urine 150 /ul (Negative); Protein-Dipstick 30 mg/dl (Negative); Specific Gravity, Urine 1.015 (1.002-1.030); Urine Bilirubin Dipstick Negative (Negative); Urine Clarity Clear (Clear); Urine Urobilinogen 1 mg/dl (Normal); Urine pH 6.5 (5.0 - 8.0)
[2023-04-24 19:53] LABS: ALB/GLOB Ratio 1.2 RATIO (0.9-2.4); AST(SGOT) 26 U/L (15-37); Alanine Aminotransfer ALT/SGPT 28 U/L (13-56); Albumin, Serum 3.4 g/dL (3.2-5.0); Alkaline Phosphatase 63 U/L (45-117); Anion Gap 8 (5-15); BUN 13 mg/dL (7-18); BUN/Creat Ratio 17.5 RATIO (10-20); Calcium,Total 8.4 mg/dL (8.5-10.1); Chloride 104 mmol/L (98-107); Creatinine, Serum 0.74 mg/dL (0.55-1.02); EST Glomerular Filtration Rate 80 mL/min (>60); Est Glom Filt Rate - Afr Amer 97 mL/min (>60); Estimated Creatinine Clearance 41.81 ml/min; Globulin 2.8 g/dL (2.2-4.2); Glucose 100 mg/dL (74-106); Potassium 3.5 mmol/L (3.5-5.1); Protein, Total 6.2 g/dL (6.4-8.2); Sodium Level 135 mmol/L (136-145)
[2023-04-24 19:54] LABS: Lactic Acid 0.6 mmol/L (0.4-1.9)
--- NOTE | 2023-04-24 19:55 | RAD_ITS ---
INDICATION: cough EXAMINATION/TECHNIQUE: X-RAY - XR Chest 1 View COMPARISON: 04/24/2023. FINDINGS: The lungs are unchanged. The cardiomediastinal silhouette is stable. Increased small left pleural effusion. No pneumothorax. The osseous structures are unchanged. RAD/Chest 1 View (Portable) IMPRESSION: Increased small left pleural effusion. Otherwise, no change from prior study. Electronically Signed: Raymon Thomas MD at 21:32 EST ,
[2023-04-24 19:57] LABS: White Blood Cells 0 SEEN /hpf (0-5)
[2023-04-24 19:58] LABS: Bacteria RARE /hpf (None Seen); Red Blood Cells-Urine 10-25 SEEN /hpf (0-5); Squamous Epithelial Cells - UA 0-5 SEEN /hpf (5-10)
[2023-04-24 20:15] LABS: Differential Comment SCANNED
[2023-04-24 20:27] LABS: International Normalized Ratio 1.2; Prothrombin Time (Protime)PT. 14.9 SECONDS (11.7-14.9)
[2023-04-24] MEDS: Ibuprofen 600 MG Tablet PO (20:40)
--- NOTE | 2023-04-24 21:02 | PCM.HP.STD ---
HPI - General General Date of Admission: 04/24/23 Date of Service: 04/24/23 Chief Complaint: AMS HPI Narrative BOSTON NULL, is a 77 F brought to the ED for altered mental status, fever and chills since last two days. She presented to the ED yesterday and was worked up for stroke which was negative. She lives with her daughter, is dependent for most activities of daily living. Ms Null has repeated episodes of falling since the last two days and requires support in getting up from the bed. Few days back, the daughter had sore throat and cough but she never got it evaluated. At the time of presentation to the ED she was febrile with temperature of 100.8 Fahrenheit, blood pressure of 140/79. WBC 6.1, hemoglobin 11.5, platelet count 207, sodium 135, potassium 3.5, total protein 6.2. Her urine analysis is negative for infection, chest x-ray normal. CT head done yesterday was negative. Her COVID infection is positive [facility] Medical History History of CVA (cerebrovascular accident) Hypothyroid Skin cancer Home Medications ibuprofen 600 mg tablet 600 mg PO Q6H PRN pain #30 tabs 04/12/20 [Rx Last Taken Unknown] levothyroxine 25 mcg tablet 25 mcg PO DAILY hypothyroid 08/30/22 [History Last Taken Unknown] aspirin 81 mg chewable tablet 81 mg PO BREAKFAST #60 tabs 08/31/22 [Rx Last Taken Unknown] rosuvastatin 10 mg tablet (Crestor) 10 mg PO DAILY 01/11/23 [History Last Taken Unknown] Allergy/AdvReac Type Severity Reaction Status Date / Time sulfamethoxazole AdvReac Vomiting Verified 04/24/23 23:33 [From Bactrim] trimethoprim [From Bactrim] AdvReac Vomiting Verified 04/24/23 23:33 Family History Mother Abdominal aortic aneurysm Heart disease Uncle Abdominal aortic aneurysm Brother Abdominal aortic aneurysm Father Leukemia 59 secondary to Leukemia. Surgical History History of rotator cuff surgery skin cancer removal Social History Smoking Status: Never smoker alcohol intake: never substance use type: does not use caffeine: Yes what type of physical activity do you participate in: walking seatbelt use: always do you feel safe at home: Yes additional social history: - retired ROS Gastrointestinal Gastrointestinal: Denies abdominal pain, coffee ground emesis, constipation, diarrhea, dyspepsia, hematemesis, hematochezia, loose stools, melena, nausea, vomiting or other Genitourinary Genitourinary: Denies burning urination, difficulty urinating, dysuria, hematuria, nocturia, urinary frequency, urinary hesitancy, urinary incontinence, urinary urgency or other Musculoskeletal Musculoskeletal: Denies arthralgias, back pain, joint pain, joint stiffness, joint swelling, myalgias, neck pain or other Neurologic Neurologic: Denies abnormal gait, abnormal speech, confusion, disequilibrium, dizziness, focal weakness, headache(s), numbness, paresthesias, seizure-like activity, seizures, syncope, tingling, tremor(s) or other Vital Signs Vital Signs Vital Signs: 04/24/23 18:13 04/24/23 18:44 04/24/23 19:29 Temperature 100.8 F H Temperature Source Temporal Pulse Rate 90 Respiratory Rate 18 Respiratory Effort Normal Respiratory Pattern Normal Blood Pressure 140/79 H Blood Pressure Mean 99 Pulse Ox 96 92 Oxygen Delivery Method Room Air Room Air 04/24/23 20:00 Temperature 99.9 F H Temperature Source Oral Pulse Rate 91 Respiratory Rate 28 H Respiratory Effort Respiratory Pattern Blood Pressure 139/72 H Blood Pressure Mean 94 Pulse Ox 90 Oxygen Delivery Method Room Air Weight Weight: 128 lb Body Mass Index (BMI) 20.6 Physical Exam HEENT normocephalic Eyes PERRL Neck no lymphadenopathy Resp normal respiratory effort and no retractions Cardio regular rate and regular rhythm GI normal to inspection, nondistended, normoactive bowel sounds Neuro Neuro Narrative: AXO 2-3, past memory is intact, difficulty in recalling recent events Results Medical Records Data Attestation: I reviewed the patient's medical records Lab / Micro Data 04/24/23 18:58 04/24/23 18:58 Labs: Laboratory Results - last 24 hr 04/24/23 18:58: WBC 6.1, RBC 3.92 L, Hgb 11.5 L, Hct 35.7 L, MCV 91.1, MCH 29.3, MCHC 32.2, RDW Std Deviation 46.0 H, RDW Coeff of Rajesh 13.7, Plt Count 207, MPV 9.8, Immature Gran % (Auto) 0.500, Neut % (Auto) 75.1 H, Lymph % (Auto) 9.5 L, Glynn % (Auto) 14.4 H, Eos % (Auto) 0.2, Baso % (Auto) 0.3, Absolute Neuts (auto) 4.6, Absolute Lymphs (auto) 0.58 L, Nucleated RBC % 0, Differential Comment SCANNED, PT 14.9, INR 1.2, APTT 26.5, Sodium 135 L, Potassium 3.5, Chloride 104, Carbon Dioxide 23.0, Anion Gap 8, BUN 13, Creatinine 0.74, Estim Creat Clear Calc 41.81, Est GFR (MDRD) Af Amer 97, Est GFR (MDRD) Non-Af 80, BUN/Creatinine Ratio 17.5, Glucose 100, Lactic Acid 0.6, Calcium 8.4 L, Total Bilirubin 0.30, AST 26, ALT 28, Alkaline Phosphatase 63, Total Protein 6.2 L, Albumin 3.4, Globulin 2.8, Albumin/Globulin Ratio 1.2 04/24/23 19:00: Urine Color Yellow, Urine Clarity Clear, Urine pH 6.5, Ur Specific [place] 1.015, Urine Protein 30 H, Urine Glucose (UA) Normal, Urine Ketones 50 H, Urine Occult Blood 150 H, Urine Nitrite Negative, Urine Bilirubin Negative, Urine Urobilinogen 1 H, Ur Leukocyte Esterase Negative, Urine RBC 10-25 SEEN, Urine WBC 0 SEEN, Ur Squamous Epith Cells 0-5 SEEN, Urine Bacteria RARE, Urine Mucus 0 SEEN Micro: Microbiology 04/24/23 19:49 Nasal Secretion SARS-CoV-2 & FLU Antigen (Rapid) - Final SARS-CoV-2 (COVID 19) Assessment & Plan Assessment/Plan (1) Acute confusional state: PLAN: Plan Ms Null, 77 year old presents to the ED with concerns of worsening mentation and lethargy for the last 2-3 days. She was febrile at presentation and her COVID PCR is positive. Fever and COVID related illness is likely the underlying reason for her acute presentation. She was evaluated for stroke yesterday and the work up has been negative. 1. COVID-19: Likely reason for acute mentation is the illness and viral prodrome, she was febrile at the time of presentation. Will start her on supportive management. No hypoxia at present. There are no features of severe COVID at present. 2. Mild dementia: She has dementia at baseline and needs caregiver support, will instill delirium precautions for her admission. No features of metabolic encephalopathy or other source of infection at this time. 3. Recurrent falls: Could be related to the fatigue. PT/ OT evaluation for placement before discharge 4. Increased risk of DVT: Appropriate prophylaxis has been ordered 5. Hypothyroidism: repeat TSH levles tomorrow, continue home medications
[2023-04-25] VITALS (10 sets, daily range): BP systolic 113–158; BP diastolic 70–86; PULSE 63–86; RESP 18–20; TEMP 36.3–37.9; O2SAT 81–100
[2023-04-25] MEDS: Levothyroxine 25 MCG TABLET PO (05:49)
[2023-04-25 07:23] LABS: Absolute Lymphocyte Count 0.72 X10^3/uL (0.83-4.51); Absolute Neutrophil Count 2.1 X10^3/uL (2.0-7.7); Basophil# 0.01 X10^3/uL; Basophil% 0.3 % (0-1); Hematocrit 40.2 % (37-47); Hemoglobin 12.9 g/dL (12.0-15.0); Lymphocyte # 0.72 X10^3/ul (0.83-4.51); Lymphocyte % 20.7 % (19-41); Mean Corp Hgb Conc 32.1 g/dL (32-36); Mean Corpuscular Hgb 29.7 pg (27.0-32.0); Mean Corpuscular Volume 92.4 fL (81-99); Mean Platelet Vol. 9.5 fl (6.2-12.0); Monocyte# 0.66 X10^3/uL; NRBC Flagged by Analyzer 0 % (0-5); Neutrophil # 2.07 X10^3/uL (2.7-7.7); Neutrophil % 59.7 % (47-70); Platelet Count 188 K/mm3 (150-450); RBC Distribution Width CV 13.7 % (11.6-14.6); RBC Distribution Width SD 47.2 fl (35.1-43.9); Red Blood Count 4.35 M/mm3 (4.2-5.4); White Blood Count 3.5 K/mm3 (4.4-11.0)
[2023-04-25 07:38] LABS: Prothrombin Time (Protime)PT. 13.5 SECONDS (11.7-14.9)
[2023-04-25 08:11] LABS: ALB/GLOB Ratio 1.1 RATIO (0.9-2.4); AST(SGOT) 33 U/L (15-37); Alanine Aminotransfer ALT/SGPT 30 U/L (13-56); Albumin, Serum 3.3 g/dL (3.2-5.0); Alkaline Phosphatase 62 U/L (45-117); Anion Gap 3 (5-15); BUN 11 mg/dL (7-18); BUN/Creat Ratio 14.5 RATIO (10-20); Bilirubin, Direct 0.09 mg/dL (0.00-0.30); Calcium,Total 8.7 mg/dL (8.5-10.1); Chloride 110 mmol/L (98-107); Creatinine, Serum 0.76 mg/dL (0.55-1.02); EST Glomerular Filtration Rate 78 mL/min (>60); Est Glom Filt Rate - Afr Amer 95 mL/min (>60); Estimated Creatinine Clearance 40.62 ml/min; Glucose 98 mg/dL (74-106); Magnesium 2.4 mg/dL (1.6-2.6); Phosphorus 3.6 mg/dL (2.5-4.9); Protein, Total 6.3 g/dL (6.4-8.2); Sodium Level 140 mmol/L (136-145); Thyroid Stim Hormone (TSH) 0.89 uIU/mL (0.358-3.74)
[2023-04-25] MEDS: Ensure Plus High Protein 120 ML LIQUID PO ×3 (10:33→17:07)
[2023-04-25] MEDS: Enoxaparin 40 MG/0.4 ML Syringe SC (10:34)
[2023-04-25] MEDS: dexAMETHasone 4 MG Tablet 6 MG PO (10:34)
[2023-04-25] MEDS: Aspirin 81 MG TAB.CHEW PO (10:35)
[2023-04-25] MEDS: Acetaminophen 325 MG Tablet 650 MG PO ×2 (11:03→23:29)
--- NOTE | 2023-04-25 11:52 | CASEMGMT ---
This RN CM talked to the pt RN. The RN states that the pt is confused and disoriented to place. The pt has a history of dementia and is in Airborne precautions for COVID. This MARIA IRIZARRY and MARIA Estrella CM call the patient's daughter, Bobbi. Bobbi states that the pt has a HCPOA. The POA is the pt other daughter, Sabiha Aguilera. Bobbi then states that they both will be at [facility] around 1400 this afternoon and states we can talk then.
--- NOTE | 2023-04-25 13:13 | PN_ITS ---
Subjective Subjective Patient seen and examined. She appears quite confused and kept mentioning that she had left her purse at home, and didnt have money to buy food. She was alert to self and place, but was otherwise confused. She denied any cough, chest pain, palpitations, dizziness, nausea, vomiting or any other symptoms. Review of s ystems is otherwise negative. Objective Data Objective Data Vital Signs: Vital Signs Temp Pulse Resp BP Pulse Ox O2 Del Method O2 Flow Rate 100.3 F H 86 18 133/83 H 98 Room Air 2 04/25/23 10:58 04/25/23 10:58 04/25/23 10:58 04/25/23 10:58 04/25/23 11:00 04/25/23 11:00 04/25/23 07:45 Oxygen Flow Rate (L/min) 2 Oxygen Delivery Method Room Air Weight: 124 lb 5.451 oz Body Mass Index (BMI) 20.0 Intake & Output: Intake and Output for Last 24 Hours 04/23/23 04/24/23 04/25/23 23:59 23:59 23:59 Intake Total 1000 / 1000 550 / 550 Output Total 800 / 800 Balance 1000 / 600 -250 / -250 Lab / Micro Data 04/25/23 07:05 04/25/23 07:05 Labs: Laboratory Results - last 24 hr 04/24/23 18:58: WBC 6.1, RBC 3.92 L, Hgb 11.5 L, Hct 35.7 L, MCV 91.1, MCH 29.3, MCHC 32.2, RDW Std Deviation 46.0 H, RDW Coeff of Rajesh 13.7, Plt Count 207, MPV 9.8, Immature Gran % (Auto) 0.500, Neut % (Auto) 75.1 H, Lymph % (Auto) 9.5 L, [place] % (Auto) 14.4 H, Eos % (Auto) 0.2, Baso % (Auto) 0.3, Absolute Neuts (auto) 4.6, Absolute Lymphs (auto) 0.58 L, Nucleated RBC % 0, Differential Comment SCANNED, PT 14.9, INR 1.2, APTT 26.5, Sodium 135 L, Potassium 3.5, Chloride 104, Carbon Dioxide 23.0, Anion Gap 8, BUN 13, Creatinine 0.74, Estim Creat Clear Calc 41.81, Est GFR (MDRD) Af Amer 97, Est GFR (MDRD) Non-Af 80, BUN/Creatinine Ratio 17.5, Glucose 100, Lactic Acid 0.6, Calcium 8.4 L, Total Bilirubin 0.30, AST 26, ALT 28, Alkaline Phosphatase 63, Total Protein 6.2 L, Albumin 3.4, Globulin 2.8, Albumin/Globulin Ratio 1.2 04/24/23 19:00: Urine Color Yellow, Urine Clarity Clear, Urine pH 6.5, Ur Specific [place] 1.015, Urine Protein 30 H, Urine Glucose (UA) Normal, Urine Ketones 50 H, Urine Occult Blood 150 H, Urine Nitrite Negative, Urine Bilirubin Negative, Urine Urobilinogen 1 H, Ur Leukocyte Esterase Negative, Urine RBC 10- 25 SEEN, Urine WBC 0 SEEN, Ur Squamous Epith Cells 0-5 SEEN, Urine Bacteria RARE, Urine Mucus 0 SEEN 04/25/23 07:05: WBC 3.5 L, RBC 4.35, Hgb 12.9, Hct 40.2, MCV 92.4, MCH 29.7, MCHC 32.1, RDW Std Deviation 47.2 H, RDW Coeff of Rajesh 13.7, Plt Count 188, MPV 9.5, Immature Gran % (Auto) 0.300, Neut % (Auto) 59.7, Lymph % (Auto) 20.7, [place] % (Auto) 19.0 H, Eos % (Auto) 0.0, Baso % (Auto) 0.3, Absolute Neuts (auto) 2.1, Absolute Lymphs (auto) 0.72 L, Nucleated RBC % 0, PT 13.5, INR 1.0, Sodium 140, Potassium 4.0, Chloride 110 H, Carbon Dioxide 27.0, Anion Gap 3 L, BUN 11, Creatinine 0.76, Estim Creat Clear Calc 40.62, Est GFR (MDRD) Af Amer 95, Est GFR (MDRD) Non-Af 78, BUN/Creatinine Ratio 14.5, Glucose 98, Calcium 8.7, Phosphorus 3.6, Magnesium 2.4, Total Bilirubin 0.30, Direct Bilirubin 0.09, AST 33, ALT 30, Alkaline Phosphatase 62, Total Protein 6.3 L, Albumin 3.3, Globulin 3.0, Albumin/Globulin Ratio 1.1, TSH 0.89 Micro: Microbiology 04/24/23 19:49 Nasal Secretion SARS-CoV-2 & FLU Antigen (Rapid) - Final SARS-CoV-2 (COVID 19) Radiography Diagnostic Testing: Radiology Impression Chest X-Ray 04/24/23 19:55 IMPRESSION: Increased small left pleural effusion. Otherwise, no change from prior study. Electronically Signed: Raymon Thomas MD at 21:32 EST , Physical Exam Const alert, oriented x3 and no apparent distress General Appearance: cooperative HEENT normocephalic, head/scalp atraumatic, moist oral mucous membranes and oropharynx normal Eyes PERRL and EOMs intact bilaterally Neck no lymphadenopathy and supple Lymph Lymphatic: no lymphadenopathy noted and no lymphedema noted Resp normal respiratory effort, normal air movement and clear to auscultation bilaterally Cardio regular rate, regular rhythm, S1 normal heart sound, S2 normal heart sound and no murmurs GI normal to inspection, nondistended, normoactive bowel sounds, soft to palpation, non-tender and non-distended Extremity normal capillary refill, no clubbing, cyanosis or edema and no calf tenderness General Extremity: no tenderness to palpation of joints or extremities Skin General Skin Exam: no breakdown Neuro CN's II-XII intact bilaterally, no focal motor deficits and no sensory deficits noted Motor Exam: strength 5/5 throughout Psych cooperative Psych Narrative: confused Appearance: appropriate Assessment & Plan Assessment/Plan (1) Weakness: (2) COVID-19: PLAN: Plan #Altered mental status * patient still confused. She is hemodynamically stable * likely due to covid nfection * was requiring oxygen today though she is now on room air * will start on PO dexamethasone 6mg daily * urinalysis didnt show any evidence of infection * fall precautions #Hypothyroidism: on synthroid #Debility and recurrent falls: PT/OT on board. Fall precautions DVT prophylaxis;lovenox Total time spent on evaluation and management of patient, reviewing chart, discussing plan with patient, discussion with nursing and ancillary staff as well as documentation: 32 mins Charges/Coding Visit Charges Inpatient E&M: 77160 Subs Hosp L2
[2023-04-25] MEDS: 0.9% Saline Lock 10 ML Syringe IV (14:59)
--- NOTE | 2023-04-25 15:15 | CASEMGMT ---
Addendum entered by Lidia Montes 04/25/23 16:14: HCPOA and Living Will obtained from [facility]. Sabiha Aguilera is Primary HCPOA. documents placed on pt's chart. PASCUAL Umanzor Original Note: Social Work Pts dgts provided [facility] with an Advance Directive Notification Card stating Pt has completing a Living will and a health care POA naming Sabiha Aguilera and Socorro Stokes. Dgts do not have a copy of the documents. Cared states [facility] firm has a copy. Phone call to [facility] and requested documents be faxed to [facility] for medical record. [facility] and will check with the designees and fax if permission is given. PASCUAL Meyers
--- NOTE | 2023-04-25 15:23 | CASEMGMT ---
MARIA IRIZARRY Assessment Pt is confused at this time per medical team and pt is also in Airborne isolation for COVID. Conversation with pt daughters (see below) for initial transition planning/care coordination assessment. This MARIA IRIZARRY and MARIA Estrella CM introduced self and role at [facility], Patient daughters voice understanding. Care providers, pharmacy, and demographics verified. Admitting dx: COVID, confusion LACE Strata: 2 PCP: [facility] Specialists: Denies Preferred Pharmacy: [facility] Insurance: [facility] Prescription Benefit: Yes LNOK: Daughter - Bobbi Stokes. Daughter - Sabiha Aguilera. They state they both have POA rights. Documentation given to XIMENA Murillo. Living Arrangements: Bobbi states that she lives at home with her mother Gretchen. She states that they live in a 2 story home with a basement. Bobbi reports there are 3 steps to enter the home that Gretchen normally has no issues with. She states that the staircase to the basement has handrails. ADLs/IADLs: Bobbi states that Gretchen was independent with activities before getting sick. Pt is now requiring assistance with ADLs/ IADLs. Per Physical Therapy, the pt was able to ambulate 120' but appeared confused. Transportation: Bobbi states that the pt is able to drive but does not go out much anymore and I do the grocery shopping for her. DME: Bobbi states they have a cane and walker at home for Gretchen but she does not normally need either of them. Denies home O2 use. Bobbi states that she will work on getting a grab bar in the shower. HHC/SNF: Denies history. Plan: HHC vs SNF. We will need to see how the pt progresses and see what she qualifies for. The plan is to have PT work with the pt around 1400 tomorrow with the daughter Bobbi at bedside. PT agrees with this plan. Pt 6 click score = 14. The daughters state that the pt has displayed an increase in confusion lately. The daughters state they are willing to look at options regarding HHC and SNF. Paul Bryson RN, CM
--- NOTE | 2023-04-25 16:07 | CASEMGMT ---
Discharge Planning A list of?SNF & HH providers including quality and resource use data and consistent with the patient's preferred geographic region, medical needs, and insurance network was created in [facility] Guide.? This list was provided to the RN CM. Shasta Noble, Discharge Planning Asst.
--- OUTSIDE RECORDS SUMMARY | 2023-04-25 20:58 | XMS RPT_ITS | CCD ---
Author Name Unknown Address [address] [place] [address] Organization [facility] Care Team Providers Care Senior Oracle Database Developer Name Role Phone FRANCE WILLIAMSON Unavailable Unavailable Encounters Encounter Date Encounter Type Care Provider Facility Start: 04-26-2018 End: 04-26-2018 Patient encounter procedure FRANCE WILLIAMSON Facility:B Payers Date Payer Category Payer Unknown [id number] 1945 Unknown [id number] Summary Purpose Family History No Family History [...] BE BASED ON THE PRIMARY CLINICAL RECORDS. [facility] [employer] [facility]. provides no warranty or guarantee of the accuracy or completeness of information in this document.
--- OUTSIDE RECORDS SUMMARY | 2023-04-25 21:33 | XMS RPT_ITS | CCD ---
Author Name Unknown Address [address] [place] [address] Organization [facility] Care Team Providers Care Culinary Artist Name Role Phone FRANCE WILLIAMSON Unavailable Unavailable Encounters Encounter Date Encounter Type Care Provider Facility Start: 04-26-2018 End: 04-26-2018 Patient encounter procedure FRANCE WILLIAMSON Facility:B Payers Date Payer Category Payer Unknown [id number] 1945 Unknown [id number] Summary Purpose Family History No Family History [...] BE BASED ON THE PRIMARY CLINICAL RECORDS. [facility] [employer] [facility]. provides no warranty or guarantee of the accuracy or completeness of information in this document.
[2023-04-25] MEDS: MELATONIN 3 MG TABLET PO (23:30)
[2023-04-26 05:33] VITALS: BP 130/56; PULSE 69; RESP 18; TEMP 36.6; O2SAT 97
[2023-04-26] MEDS: Levothyroxine 25 MCG TABLET PO (05:45)
[2023-04-26 07:13] LABS: Absolute Lymphocyte Count 1.33 X10^3/uL (0.83-4.51); Basophil# 0.01 X10^3/uL; Basophil% 0.2 % (0-1); Hematocrit 37.8 % (37-47); Hemoglobin 12.2 g/dL (12.0-15.0); Lymphocyte # 1.33 X10^3/ul (0.83-4.51); Lymphocyte % 28.1 % (19-41); Mean Corp Hgb Conc 32.3 g/dL (32-36); Mean Corpuscular Hgb 29.8 pg (27.0-32.0); Mean Corpuscular Volume 92.2 fL (81-99); Mean Platelet Vol. 9.8 fl (6.2-12.0); Monocyte# 0.43 X10^3/uL; Monocyte% 9.1 % (0-10); NRBC Flagged by Analyzer 0 % (0-5); Neutrophil # 2.95 X10^3/uL (2.7-7.7); Neutrophil % 62.4 % (47-70); Platelet Count 203 K/mm3 (150-450); RBC Distribution Width CV 13.6 % (11.6-14.6); RBC Distribution Width SD 46.6 fl (35.1-43.9); White Blood Count 4.7 K/mm3 (4.4-11.0)
--- NOTE | 2023-04-26 07:53 | NURSING ---
pt noted to be confused and agitated this mony Chun primary RN with patient. daughter Socorro called as RN's request as pt asking about her purse. Per Socorro she has her purse. call transferred to room and primary RN assisted with pt answering daughters call.
[2023-04-26 07:55] LABS: Anion Gap 6 (5-15); BUN 20 mg/dL (7-18); BUN/Creat Ratio 31.1 RATIO (10-20); Calcium,Total 8.8 mg/dL (8.5-10.1); Chloride 110 mmol/L (98-107); Creatinine, Serum 0.64 mg/dL (0.55-1.02); EST Glomerular Filtration Rate 94 mL/min (>60); Est Glom Filt Rate - Afr Amer 114 mL/min (>60); Estimated Creatinine Clearance 40.62 ml/min; Glucose 107 mg/dL (74-106); Potassium 3.9 mmol/L (3.5-5.1); Sodium Level 140 mmol/L (136-145)
--- NOTE | 2023-04-26 07:56 | NURSING ---
Patient was in the doorway of her room stating that she did not want to go back into that room, she wants to go to her own bedroom. Attempted to reorient patient and remind her that she was in the hospital. Patient is also insistent that she gets her belongings. She is suspicious of staff wanting unopened water bottles and refusing to let this RN give her medication or perform assessment/get VS. She also states she is trapped because she cannot leave her room. This RN attempted to educate patient that she has COVID and she is unable to leave her room right now because she is infectious. warehouse specialist called patient's daughter and patient is currently talking to daughter. AN EMPLOYEE SPONSOR OR ADVOCATE AND is sitting with patient for safety at this time. Will update MD and monitor.
--- NOTE | 2023-04-26 08:11 | NURSING ---
Patient's daughter updated on recent events.
[2023-04-26 09:26] VITALS: O2SAT 97
--- NOTE | 2023-04-26 10:18 | CASEMGMT ---
Addendum entered by Lidia Montes 04/26/23 11:22: Social Work SW received return call from pt's dgt Socorro regarding crisis referral. Karen psych explained and pt support provided to Stephanie. Quintanilla to call her sister Sabiha and update. PASCUAL Umanzor Original Note: Social Work SW collaborated with physician and bedside RN. Pt has been confused, suspicious this morning which is new. Physician requesting evaluation from Crisis form Geripysch placement. Call to Windy at Crisis and referral made. Clinicals faxed. Crisis to come to hospital and assess pt. VM left for pt's dgt Socorro to update on situation. Will await return call. Nursing updated. PASCUAL Umanzor
[2023-04-26 10:38] VITALS: BP 157/90; PULSE 88; RESP 16; TEMP 36.6; O2SAT 99
[2023-04-26] MEDS: Aspirin 81 MG TAB.CHEW PO (10:42)
[2023-04-26] MEDS: Enoxaparin 40 MG/0.4 ML Syringe SC (10:42)
[2023-04-26] MEDS: dexAMETHasone 4 MG Tablet 6 MG PO (10:42)
--- NOTE | 2023-04-26 13:53 | PN_ITS ---
Subjective Subjective Patient seen and examined. SHe remains very confused and paranoid. Unable to do review of systems due to her confusion. Objective Data Objective Data Vital Signs: Vital Signs Temp Pulse Resp BP Pulse Ox O2 Del Method O2 Flow Rate 97.9 F 88 16 157/90 H 99 Room Air 2 04/26/23 10:38 04/26/23 10:38 04/26/23 10:38 04/26/23 10:38 04/26/23 10:38 04/26/23 10:38 04/25/23 07:45 Oxygen Flow Rate (L/min) 2 Oxygen Delivery Method Room Air Weight: 124 lb 5.451 oz Body Mass Index (BMI) 20.0 Intake & Output: Intake and Output for Last 24 Hours 04/24/23 04/25/23 04/26/23 23:59 23:59 23:59 Intake Total 1000 / 1000 970 / 970 250 / 250 Output Total 800 / 800 Balance 1000 / 600 170 / 170 250 / 250 Lab / Micro Data 04/26/23 06:46 04/26/23 06:46 Labs: Laboratory Results - last 24 hr 04/26/23 06:46: WBC 4.7, RBC 4.10 L, Hgb 12.2, Hct 37.8, MCV 92.2, MCH 29.8, MCHC 32.3, RDW Std Deviation 46.6 H, RDW Coeff of Rajesh 13.6, Plt Count 203, MPV 9.8, Immature Gran % (Auto) 0.200, Neut % (Auto) 62.4, Lymph % (Auto) 28.1, [place] % (Auto) 9.1, Eos % (Auto) 0.0, Baso % (Auto) 0.2, Absolute Neuts (auto) 3.0, Absolute Lymphs (auto) 1.33, Nucleated RBC % 0, Sodium 140, Potassium 3.9, Chloride 110 H, Carbon Dioxide 24.0, Anion Gap 6, BUN 20 H, Creatinine 0.64, Estim Creat Clear Calc 40.62, Est GFR (MDRD) Af Amer 114, Est GFR (MDRD) Non-Af 94, BUN/Creatinine Ratio 31.1 H, Glucose 107 H, Calcium 8.8 Micro: Microbiology 04/24/23 19:00 Urine Catheter - Catheter Urine Culture - Final Culture exhibits no growth. 04/24/23 19:49 Nasal Secretion SARS-CoV-2 & FLU Antigen (Rapid) - Final SARS-CoV-2 (COVID 19) Physical Exam Const alert and no apparent distress General Appearance: cooperative Orientation / Consciousness: confused HEENT normocephalic, head/scalp atraumatic, moist oral mucous membranes and oropharynx normal Eyes PERRL and EOMs intact bilaterally Neck no lymphadenopathy and supple Lymph Lymphatic: no lymphadenopathy noted and no lymphedema noted Resp normal respiratory effort, normal air movement, no retractions and clear to auscultation bilaterally Cardio regular rate, regular rhythm, S1 normal heart sound, S2 normal heart sound and no murmurs GI normal to inspection, nondistended, normoactive bowel sounds, soft to palpation, non-tender and non-distended Extremity normal capillary refill, no clubbing, cyanosis or edema and no calf tenderness General Extremity: no tenderness to palpation of joints or extremities Skin General Skin Exam: no breakdown Neuro CN's II-XII intact bilaterally, no focal motor deficits and no sensory deficits noted Neuro Narrative: patient remains very confused and paranoid Motor Exam: strength 5/5 throughout Psych cooperative Psych Narrative: confused Appearance: appropriate Assessment & Plan Assessment/Plan (1) Weakness: (2) COVID-19: PLAN: Plan #Altered mental status * patient still remains very confused and paranoid. She is hemodynamically stable * likely due to covid infection * remains on room air. * will start on PO dexamethasone 6mg daily * urinalysis didnt show any evidence of infection * fall precautions * I think patient will benefit from being on a geropsych unit due to confusion and paranoid ideations. Daughter says she cannot take care of her at home and does not want her to come back home. Crises consulted to help facilitate this. #Hypothyroidism: on synthroid #Debility and recurrent falls: PT/OT on board. Fall precautions DVT prophylaxis;lovenox Total time spent on evaluation and management of patient, reviewing chart, discussing plan with patient, discussion with nursing and ancillary staff as well as documentation: 32 mins Charges/Coding Visit Charges Inpatient E&M: 36899 Subs Hosp L2
--- NOTE | 2023-04-26 14:44 | NURSING ---
Patient's daughter here, as well as Bisi[facility] from [facility] and both were given updates on patient's condition.
--- NOTE | 2023-04-26 15:47 | CASEMGMT ---
Social Work Multiple phone conversations with pt's dgt Socorro through out the day. Socorro with concerns regarding [facility] placement and mothers current condition. Much support provided and educated dgt to process and reasoning for crisis evaluation. farmworker egg producing farm her now to evaluate pt. Pts dgt Socorro meeting with crisis as well to discuss plan. SW to continue to follow for dc planning. PASCUAL Meyers
--- NOTE | 2023-04-26 16:35 | NURSING ---
Crisis reports to this RN that the patient and the daughter have developed a safety plan for dc home. Daughter is requesting that patient stay one more night. notified and agrees to keep patient overnight. SW updated as well.
[2023-04-26 16:48] VITALS: BP 116/92; PULSE 68; RESP 16; TEMP 36.8; O2SAT 96
[2023-04-26 22:30] VITALS: BP 142/78; PULSE 66; RESP 18; TEMP 37.1; O2SAT 97
[2023-04-26] MEDS: MELATONIN 3 MG TABLET PO (22:50)
[2023-04-26] MEDS: Acetaminophen 325 MG Tablet 650 MG PO (22:50)
[2023-04-26] MEDS: 0.9% Saline Lock 10 ML Syringe IV (23:20)
[2023-04-27 04:02] VITALS: BP 147/74; PULSE 65; RESP 18; TEMP 36.7; O2SAT 97
[2023-04-27] MEDS: 0.9% Saline Lock 10 ML Syringe IV (04:06)
[2023-04-27] MEDS: Levothyroxine 25 MCG TABLET PO (04:06)
[2023-04-27 06:36] LABS: Absolute Lymphocyte Count 1.93 X10^3/uL (0.83-4.51); Absolute Neutrophil Count 4.4 X10^3/uL (2.0-7.7); Basophil# 0.01 X10^3/uL; Basophil% 0.1 % (0-1); Hematocrit 42.2 % (37-47); Hemoglobin 13.7 g/dL (12.0-15.0); Lymphocyte # 1.93 X10^3/ul (0.83-4.51); Lymphocyte % 27.1 % (19-41); Mean Corp Hgb Conc 32.5 g/dL (32-36); Mean Corpuscular Hgb 29.8 pg (27.0-32.0); Mean Corpuscular Volume 91.7 fL (81-99); Mean Platelet Vol. 9.4 fl (6.2-12.0); Monocyte# 0.79 X10^3/uL; Monocyte% 11.1 % (0-10); NRBC Flagged by Analyzer 0 % (0-5); Neutrophil # 4.37 X10^3/uL (2.7-7.7); Neutrophil % 61.4 % (47-70); Platelet Count 236 K/mm3 (150-450); RBC Distribution Width CV 13.4 % (11.6-14.6); RBC Distribution Width SD 45.6 fl (35.1-43.9); White Blood Count 7.1 K/mm3 (4.4-11.0)
[2023-04-27 06:59] LABS: Anion Gap 6 (5-15); BUN 21 mg/dL (7-18); BUN/Creat Ratio 29.5 RATIO (10-20); Calcium,Total 9.6 mg/dL (8.5-10.1); Chloride 111 mmol/L (98-107); Creatinine, Serum 0.71 mg/dL (0.55-1.02); EST Glomerular Filtration Rate 84 mL/min (>60); Est Glom Filt Rate - Afr Amer 102 mL/min (>60); Estimated Creatinine Clearance 40.62 ml/min; Glucose 85 mg/dL (74-106); Sodium Level 142 mmol/L (136-145)
[2023-04-27] MEDS: Aspirin 81 MG TAB.CHEW PO (08:59)
[2023-04-27] MEDS: dexAMETHasone 4 MG Tablet 6 MG PO (08:59)
[2023-04-27 09:08] VITALS: PULSE 68; RESP 16; TEMP 36.6; O2SAT 96
--- NOTE | 2023-04-27 12:16 | CASEMGMT ---
Addendum entered and electronically signed by Cheyanne Ponce RN 04/27/23 13:04: Pt's daughter denies a need for home SN at discharge and requests home PT/OT. MARIA Martinez Original Note: RN EDIE Follow-up: This RN CM met with pt and pt's daughter Socorro at bedside. Discussed discharge needs including recommendations from PT and OT for additional tx at discharge. Socorro requesting a shower chair. This RN CM explained to Socorro that this is not a covered item under pt's insurance but a script will be obtained to assist with any discounts. Socorro expressed understanding and states they can obtain. Dr. Warren notified of request and provided signed script. Socorro requested to speak with Dr. Warren who was notified via backline of the request. Discussed with Socorro therapy needs at discharge and she requested home therapy. Will provide a list of home health providers for her to review. Socorro states she may not be able to select a preference prior to discharge. This RN CM encouraged Socorro to provide preferences by the end of this afternoon to facilitate referrals and acceptance for timely start of care. Socorro expressed understanding. DC Plan: Home with home therapy, shower chair and the support of pt's daughter Socorro MARIA Martinez
--- NOTE | 2023-04-27 13:23 | CASEMGMT ---
Addendum entered by Shasta Noble 04/27/23 15:08: [facility] has accepted patient with doc scheduled for 04/30/23. RN CM updated. left for patients daughter, Socorro. Shasta Noble, Discharge Planning Asst. Addendum entered by Shasta Noble 04/27/23 13:52: [facility] declined patient d/t staffing. Referral sent to [facility]. Awaiting response. Shasta Noble, Discharge Planning Asst. Original Note: Discharge Planning HH referral sent to [facility] via [facility]. Shasta Noble Discharge Planning Asst.
--- NOTE | 2023-04-27 13:49 | DCINST_ITS ---
Discharge Instructions Diet Discharge Diet: Low fat / Low cholesterol Activity Discharge Activity: Return to Normal Activity Weight Bearing Status: Weight bearing as tolerated Dressing / Incision Call your doctor if you observe: Fever of 101 or Higher, Shortness of breath, Dizziness, Swelling in the ankles and Chest pain Follow Up Care Test Results: Test results from this visit will be discussed in further detail at your follow- up appointment, if applicable. Discharge Plan Admission Admit Date/Time: 04/24/23 22:09 Primary Reason for Your Visit: covid 19 infection Attending Provider: Adeola Warren Primary Care Provider: Lelo Christine Consulting Providers: Alfredo Sanchez Instructions Patient Instructions: Coronavirus Disease 2019 (COVID-19): Overview, Coronavirus Disease 2019 (COVID-19): Prevention Discharge Orders/Prescriptions Prescriptions: Continued ibuprofen 600 mg tablet 600 mg PO Q6H PRN (Reason: pain) Qty: 30 0RF rosuvastatin [Crestor] 10 mg tablet 10 mg PO DAILY Patient Comments: thinks it is causing muscle aches levothyroxine 25 mcg tablet 25 mcg PO DAILY aspirin 81 mg Tablet,Chewable 81 mg PO BREAKFAST Qty: 60 0RF Referrals / Follow Up: Lelo Christine MD [Primary Care Provider] - Within 2 Weeks Disposition Disposition (needs filled in before D/C Order can be placed): Home, Self Care
--- NOTE | 2023-04-27 13:50 | DS.PCM_ITS ---
Providers Date of Admission: 04/24/23 Date of Discharge: 04/27/23 Primary Care Physician: Dr. Lelo Christine MD Reason For Visit: COVID Diagnosis Discharge Diagnosis (1) Weakness: Status: Acute Code(s): R53.1 - Weakness (2) COVID-19: Status: Acute Code(s): U07.1 - COVID-19 Plan #Altered mental status * patient still remains very confused and paranoid. She is hemodynamically stable * likely due to covid infection * remains on room air. * will start on PO dexamethasone 6mg daily * urinalysis didnt show any evidence of infection * fall precautions * I think patient will benefit from being on a geropsych unit due to confusion and paranoid ideations. Daughter says she cannot take care of her at home and does not want her to come back home. Crises consulted to help facilitate this. #Hypothyroidism: on synthroid #Debility and recurrent falls: PT/OT on board. Fall precautions DVT prophylaxis;lovenox Total time spent on evaluation and management of patient, reviewing chart, discussing plan with patient, discussion with nursing and ancillary staff as well as documentation: 32 mins Medications at Discharge Home Medications ibuprofen 600 mg tablet 600 mg PO Q6H PRN pain #30 tabs 04/12/20 levothyroxine 25 mcg tablet 25 mcg PO DAILY hypothyroid 08/30/22 aspirin 81 mg chewable tablet 81 mg PO BREAKFAST #60 tabs 08/31/22 rosuvastatin 10 mg tablet (Crestor) 10 mg PO DAILY 01/11/23 Hospital Course Procedures None Summary of Care Provided Minutes Spent on Discharge: 47 Hospital Course: Patient is a 77-year-old female with past medical history as outlined was admitted through the ED on 04/24/2023 with a complaint of altered mental status, fever and chills which have been going on for about 2 days prior to admission. She had been seen in the ED the day before and was worked up for stroke which was negative. She had had frequent episodes of falling also at home and had required support. On admission she had a mild fever but labs were otherwise unremarkable. CT CT of the brain done the day before was negative and COVID test was positive she was therefore admitted and managed for symptomatic COVID infection as well as altered mental status. Urinalysis showed no evidence of UTI. Patient was quite confused and paranoid during his stay. It did appear that patient had dementia with behavioral abnormalities but had not been diagnosed with this yet. Daughter was initially reluctant to take patient back home because she did not think she could care for her. In light of patient's agitation and paranoia, it was recommended that crisis evaluate patient for [facility] psych placement. However daughter was reluctant to left her whether to go to a [facility] psych facility and was therefore willing to take her home. Patient remained stable and was discharged home on 04/27/2023. She is follow-up with her primary care doctor for formal evaluation to be diagnosed with dementia. Daughter Socorro requested to speak to this hospitalist about her mother's confusion but could not be reached by phone ([phone]). Voicemail left. Patient seen and examined prior to discharge. She remained very confused and paranoid. Review of systems otherwise negative. Labs and vitals reviewed. Home medication reviewed and reconciled. Physical Exam Const alert and no apparent distress General Appearance: cooperative, comfortable and well kempt Orientation / Consciousness: confused HEENT normocephalic, head/scalp atraumatic, hearing grossly normal bilaterally, moist oral mucous membranes and oropharynx normal Mouth: oral and palatal mucosa normal Eyes PERRL and EOMs intact bilaterally Neck no lymphadenopathy and supple Lymph Lymphatic: no lymphadenopathy noted and no lymphedema noted Resp normal respiratory effort, normal air movement, no retractions and clear to auscultation bilaterally Cardio regular rate, regular rhythm, S1 normal heart sound, S2 normal heart sound and no murmurs GI normal to inspection, nondistended, normoactive bowel sounds, soft to palpation, non-tender and non-distended Extremity normal to inspection, full ROM, normal capillary refill, no clubbing, cyanosis or edema and no calf tenderness General Extremity: no tenderness to palpation of joints or extremities Skin no rashes or lesions noted and no wounds General Skin Exam: no breakdown Neuro CN's II-XII intact bilaterally, moves all extremities, no focal motor deficits and no sensory deficits noted Neuro Narrative: patient remains very confused and paranoid Sensorium / Orientation: awake and alert Motor Exam: strength 5/5 throughout Psych Psych Narrative: confused Weight / BMI Weight Weight: 124 lb 5.451 oz Body Mass Index (BMI) 20.0 ABG / Lab / Microbiology Data 04/27/23 06:20 04/27/23 06:20 Laboratory: Laboratory Results - last 24 hr 04/27/23 06:20: WBC 7.1, RBC 4.60, Hgb 13.7, Hct 42.2, MCV 91.7, MCH 29.8, MCHC 32.5, RDW Std Deviation 45.6 H, RDW Coeff of Rajesh 13.4, Plt Count 236, MPV 9.4, Immature Gran % (Auto) 0.300, Neut % (Auto) 61.4, Lymph % (Auto) 27.1, [place] % (Auto) 11.1 H, Eos % (Auto) 0.0, Baso % (Auto) 0.1, Absolute Neuts (auto) 4.4, Absolute Lymphs (auto) 1.93, Nucleated RBC % 0, Sodium 142, Potassium 4.0, Chloride 111 H, Carbon Dioxide 25.0, Anion Gap 6, BUN 21 H, Creatinine 0.71, Estim Creat Clear Calc 40.62, Est GFR (MDRD) Af Amer 102, Est GFR (MDRD) Non-Af 84, BUN/Creatinine Ratio 29.5 H, Glucose 85, Calcium 9.6 Microbiology: Microbiology 04/24/23 20:08 Blood Culture (Wb) - Right Hand Blood Culture - Preliminary No growth in 48 hours. 04/24/23 18:58 Blood Culture (Wb) - Left Wrist Blood Culture - Preliminary No growth in 48 hours. 04/24/23 19:00 Urine Catheter - Catheter Urine Culture - Final Culture exhibits no growth. 04/24/23 19:49 Nasal Secretion SARS-CoV-2 & FLU Antigen (Rapid) - Final SARS-CoV-2 (COVID 19) D/C Instructions Discharge Diet: Low fat / Low cholesterol Weight Bearing Status: Weight bearing as tolerated Call your doctor if you observe: Fever of 101 or Higher, Shortness of breath, Dizziness, Swelling in the ankles and Chest pain Meaningful Use Info Meaningful Use Diagnoses (Choose all that apply): None applicable Discharge Plan Admission Admit Date/Time: 04/24/23 22:09 Primary Reason for Your Visit: covid 19 infection Attending Provider: Adeola Warren Primary Care Provider: Lelo Christine Consulting Providers: Alfredo Sanchez Instructions Patient Instructions: Coronavirus Disease 2019 (COVID-19): Overview, Coronavirus Disease 2019 (COVID-19): Prevention Discharge Orders/Prescriptions Prescriptions: Continued ibuprofen 600 mg tablet 600 mg PO Q6H PRN (Reason: pain) Qty: 30 0RF rosuvastatin [Crestor] 10 mg tablet 10 mg PO DAILY Patient Comments: thinks it is causing muscle aches levothyroxine 25 mcg tablet 25 mcg PO DAILY aspirin 81 mg Tablet,Chewable 81 mg PO BREAKFAST Qty: 60 0RF Referrals / Follow Up: Lelo Christine MD [Primary Care Provider] - Within 2 Weeks Disposition Disposition (needs filled in before D/C Order can be placed): Home, Self Care Charges/Coding Visit Charges Inpatient E&M: 53691 Disch Hosp >30min
--- NOTE | 2023-04-27 14:21 | CHAPLAIN ---
Type of Pastoral Visit ___ Initial Visit ___ Follow-up Visit ___ On-call Visit ___ General Patient Visit ___ Spiritual Assessment ___ Family Conference ___ Bereavement ___ Rapid Response ___ Code Blue ___ Other (describe below) Pastoral Care Referral From ___ Patient ___ Family ___ Nurse ___ Physician ___ Tutoring Assistant ___ Scale Agent ___ Other (describe below) Sacrament/Intervention ___ Active listening ___ Anointing ___ Mandaen ___ Bereavement ___ Communion ___ Stella exploration ___ ___ Life review ___ Prayer ___ Reconciliation ___ Sacrament of Sick ___ Supportive presence ___ Wedding ___ Other (describe below) Pastoral Comments Phone call made into isolation room; patient did not answer the phone and a voice message stated the patient is not available
--- NOTE | 2023-04-27 14:28 | PHA.DC.MR.R ---
Pharmacy MA Med Reconciliation Pharmacy Service has performed discharge medication reconciliation for this patient. No new medications issued at time of discharge review. Medications reviewed are from previously reported home medications. The patient's discharge medication list was reviewed for discrepancies and discrepancies were resolved. Medications at Discharge Home Medications ibuprofen 600 mg tablet 600 mg PO Q6H PRN pain #30 tabs 04/12/20 levothyroxine 25 mcg tablet 25 mcg PO DAILY hypothyroid 08/30/22 aspirin 81 mg chewable tablet 81 mg PO BREAKFAST #60 tabs 08/31/22 rosuvastatin 10 mg tablet (Crestor) 10 mg PO DAILY 01/11/23
== END 2023-04-27 13:18 | disposition home or self-care (01) | DRG 178 ==
LOC: ED 21:08 → MS3 21:57
PROVIDERS: Nurse Practitioner; Admitting Provider Internal Medicine; Emergency Provider Emergency Medicine; PCP Family Medicine; Visit Provider Student in an Organized Health Care Education/Training Program
DX: U07.1 COVID-19 (principal); F03.92 Unspecified dementia, unspecified severity, with psychotic disturbance; F03.911 Unspecified dementia, unspecified severity, with agitation; E03.9 Hypothyroidism, unspecified; R53.1 Weakness; G89.29 Other chronic pain; Z59.41 Food insecurity; R53.81 Other malaise; R29.6 Repeated falls
CPT/HCPCS: 36415; 70450; 71045; 80048; 80053; 80076; 81001; 82962; 83605; 83735; 84100; 84443; 84484; 85025; 85610; 85730; 87040; 87086; 87428; 93005; 96374; 97162; 97166; 97530; 99284; 99285; J7040; A4216

== ENCOUNTER → 2023-06-04 | Outpatient (CLI) | payer MEDICARE, SELFPAY ==
[2023-06-04 08:24] LABS: Bacteria 0 SEEN /hpf (None Seen); Mucous, Urine 0 SEEN /hpf (<or=2+)
--- OUTSIDE RECORDS SUMMARY | 2023-06-04 08:43 | XMS RPT_ITS | CCD ---
Author Name Unknown Address [address] [place] [address] Organization [facility] Care Team Providers Care Dental Office Coordinator Name Role Phone FRANCE WILLIAMSON Unavailable Unavailable Encounters Encounter Date Encounter Type Care Provider Facility Start: 04-26-2018 End: 04-26-2018 Patient encounter procedure FRANCE WILLIAMSON Facility:B Payers Date Payer Category Payer Unknown [id number] 1945 Unknown [id number] Summary Purpose Family History No Family History [...] BE BASED ON THE PRIMARY CLINICAL RECORDS. [employer] [facility]. provides no warranty or guarantee of the accuracy or completeness of information in this document.
[2023-06-04 09:41] LABS: Color, Urine Yellow (Yellow); Glucose, Dipstick Normal (Normal); Ketone-Dipstick Negative (Negative); Leukocyte Esterase-Dipstick 25 /ul (Negative); Nitrite-Dipstick Negative (Negative); Occult Blood-Urine 10 /ul (Negative); Protein-Dipstick Negative (Negative); Urine Bilirubin Dipstick Negative (Negative); Urine Clarity Sl. Cloudy (Clear); Urine Urobilinogen Normal (Normal); Urine pH 6.5 (5.0 - 8.0)
[2023-06-04 09:52] LABS: Red Blood Cells-Urine 0-5 SEEN /hpf (0-5); Squamous Epithelial Cells - UA 0-5 SEEN /hpf (5-10); White Blood Cells 0-5 SEEN /hpf (0-5)
[2023-06-04 10:03] LABS: AST(SGOT) 22 U/L (15-37); Alanine Aminotransfer ALT/SGPT 21 U/L (13-56); Albumin, Serum 3.7 g/dL (3.2-5.0); Alkaline Phosphatase 79 U/L (45-117); Anion Gap 3 (5-15); BUN 13 mg/dL (7-18); BUN/Creat Ratio 17.5 RATIO (10-20); Calcium,Total 9.4 mg/dL (8.5-10.1); Chloride 112 mmol/L (98-107); Cholesterol 234 mg/dL (200); Creatinine, Serum 0.74 mg/dL (0.55-1.02); EST Glomerular Filtration Rate 80 mL/min (>60); Est Glom Filt Rate - Afr Amer 97 mL/min (>60); Globulin 3.7 g/dL (2.2-4.2); Glucose 102 mg/dL (74-106); High Density Lipoprotein 98 mg/dL; Potassium 3.8 mmol/L (3.5-5.1); Protein, Total 7.4 g/dL (6.4-8.2); Sodium Level 142 mmol/L (136-145); Thyroid Stim Hormone (TSH) 2.28 uIU/mL (0.358-3.74); Triglycerides 77 mg/dL; Very Low Density Lipoprotein 15 mg/dL (5-40)
[2023-06-04 10:32] LABS: Hepatitis C Antibody Non-Reactive (Nonreactive); Syphilis Antibodies Non-reactive; Vitamin B12 622 pg/mL (211-911); Vitamin D,25 Hydroxy 34.5 ng/mL
== END | disposition home or self-care (01) ==
LOC: LAB 08:15
PROVIDERS: PCP Family Medicine; Referring Provider Family Medicine Geriatric Medicine; Visit Provider Family Medicine Geriatric Medicine
DX: E03.9 Hypothyroidism, unspecified (principal); E55.9 Vitamin D deficiency, unspecified; E78.5 Hyperlipidemia, unspecified; G31.84 Mild cognitive impairment of uncertain or unknown etiology; Z13.89 Encounter for screening for other disorder
CPT/HCPCS: 36415; 80053; 80061; 81001; 82306; 82607; 82746; 84443; 86780; 86803

== ENCOUNTER 2023-07-08 11:21 | Emergency (ER) | payer MEDICARE, SELFPAY ==
[2023-07-08 11:22] VITALS: BP 143/91; PULSE 73; RESP 16; TEMP 36; O2SAT 95; BMI 20.1
--- NOTE | 2023-07-08 11:39 | CT_ITS ---
HISTORY: lower abdominal pain. TECHNIQUE: Helically acquired images were obtained of the abdomen and pelvis after the intravenous administration of 100mL Isovue-370. A radiation dose optimization technique was used for this scan. 373 images. COMPARISON: None. FINDINGS: LOWER CHEST: Lung bases clear. BOWEL: Moderate gastric wall thickening. Bowel including appendix nondilated. Moderate stool in the colon. Colonic diverticulosis without focal inflammatory change observed. PERITONEUM: No significant ascites. LIVER: No enhancing mass. GALLBLADDER/BILIARY TREE: Gallbladder present. SPLEEN/PANCREAS/ADRENAL GLANDS: Homogeneous and nonenlarged. KIDNEYS: No hydronephrosis. Double renal cysts measuring up to 2.8 cm on the left and 1.8 cm on the right. VESSELS: No abdominal aortic aneurysm. PELVIC ORGANS: Retroverted uterus. ABDOMINAL WALL: Tiny fat-containing umbilical hernia. BONES: Moderate lumbar levoscoliosis. Degenerative change CT/Abdomen/Pelvis W IV Cont ONLY IMPRESSION: Moderate gastric wall thickening, which can be seen with gastritis. Consider follow-up to exclude underlying lesion. Colonic diverticulosis without acute diverticulitis. Electronically Signed: Miryam Andres MD at 12:50 EDT ,
[2023-07-08 11:48] LABS: Absolute Lymphocyte Count 1.03 X10^3/uL (0.83-4.51); Absolute Neutrophil Count 7.2 X10^3/uL (2.0-7.7); Basophil# 0.05 X10^3/uL; Basophil% 0.6 % (0-1); Eosinophil# 0.03 X10^3/uL; Eosinophils% 0.3 % (0-5); Hematocrit 40.8 % (37-47); Hemoglobin 13.3 g/dL (12.0-15.0); Lymphocyte # 1.03 X10^3/ul (0.83-4.51); Lymphocyte % 11.5 % (19-41); Mean Corp Hgb Conc 32.6 g/dL (32-36); Mean Corpuscular Hgb 29.1 pg (27.0-32.0); Mean Corpuscular Volume 89.3 fL (81-99); Mean Platelet Vol. 9.7 fl (6.2-12.0); Monocyte# 0.62 X10^3/uL; Monocyte% 6.9 % (0-10); NRBC Flagged by Analyzer 0 % (0-5); Neutrophil # 7.21 X10^3/uL (2.7-7.7); Neutrophil % 80.3 % (47-70); Platelet Count 286 K/mm3 (150-450); RBC Distribution Width CV 13.2 % (11.6-14.6); RBC Distribution Width SD 43.4 fl (35.1-43.9); Red Blood Count 4.57 M/mm3 (4.2-5.4)
[2023-07-08] MEDS: fentaNYL 100 MCG/2 ML Ampul 12.5 MCG IV ×2 (11:50→13:12)
[2023-07-08] MEDS: Ondansetron 4 MG/2 ML Vial IV (11:50)
--- NOTE | 2023-07-08 11:51 | EDS_ITS ---
HPI History of Present Illness Chief Complaint: Abd Pain Informant: patient Onset/Context/Timing Onset: Days (3 days) Context: Gradual Onset Narrative Narrative: Patient was with a 3-day history of lower abdominal pain. She points to the left lower quadrant and suprapubic area. She reports nausea but no vomiting. She denies fever. She states she urinates frequently but this is not abnormal for her. She thinks her last bowel movement was a couple days ago. PFSH PFSH Medical History COVID-19 Fever History of CVA (cerebrovascular accident) Hypothyroid Skin cancer Weakness Home Medications ibuprofen 600 mg tablet 600 mg PO Q6H PRN pain #30 tabs 04/12/20 [Rx Last Taken Unknown] levothyroxine 25 mcg tablet 25 mcg PO DAILY hypothyroid 08/30/22 [History Last Taken 04/23/23 08:00 25 mcg] aspirin 81 mg chewable tablet 81 mg PO BREAKFAST #60 tabs 08/31/22 [Rx Last Taken 04/23/23 08:00 81 mg] galantamine 8 mg 24 hr capsule,extended release 8 mg PO DINNER 07/08/23 [History Last Taken Unknown] nitrofurantoin monohydrate/macrocrystals 100 mg capsule (Macrobid) 100 mg PO Q12H 5 days #10 caps 07/08/23 [Rx Last Taken Unknown] ondansetron 4 mg disintegrating tablet 4 mg PO Q8H PRN PRN Nausea #10 tabs 07/08/23 [Rx Last Taken Unknown] phenazopyridine 200 mg tablet (Pyridium) 200 mg PO BID PRN PRN Pain #10 tabs 07/08/23 [Rx Last Taken Unknown] Allergy/AdvReac Type Severity Reaction Status Date / Time sulfamethoxazole AdvReac Vomiting Verified 07/08/23 12:14 [From Bactrim] trimethoprim [From Bactrim] AdvReac Vomiting Verified 07/08/23 12:14 Family History Mother Abdominal aortic aneurysm Heart disease Uncle Abdominal aortic aneurysm Brother Abdominal aortic aneurysm Father Leukemia 59 secondary to Leukemia. Surgical History History of rotator cuff surgery skin cancer removal Social History Smoking Status: Never smoker alcohol intake: never substance use type: does not use caffeine: Yes what type of physical activity do you participate in: walking seatbelt use: always do you feel safe at home: Yes additional social history: - retired ROS ROS ED Constitutional Constitutional ED: Denies chills or fever(s) Eyes Eyes: Denies discharge from eye(s) ENT ENT ED: Denies discharge from eye(s), rhinorrhea or sore throat Cardiovascular Cardiovascular: Denies chest pain Respiratory/Chest Respiratory/Chest: Denies cough or dyspnea Gastrointestinal Gastrointestinal: Reports abdominal pain and nausea; Denies diarrhea or vomiting Genitourinary Genitourinary ED: Reports urinary frequency; Denies dysuria Musculoskeletal Musculoskeletal: Denies back pain or extremity pain Integumentary Denies Abrasions or rash Neurologic Neurologic: Denies headache(s) or weakness Allergic/Immunologic Allergic/Immunologic ED: Denies lip swelling or urticaria EXAM Physical Exam Const Vital Signs: 07/08/23 11:22 07/08/23 13:00 Temperature 96.8 F L 98.4 F Temperature Source Temporal Oral Pulse Rate 73 69 Respiratory Rate 16 18 Blood Pressure 143/91 H 139/78 H Blood Pressure Mean 108 98 Pulse Ox 95 98 Oxygen Delivery Method Room Air Room Air Positive well nourished and well developed General Appearance ED: well developed HEENT Reports moist mucous membranes Eyes EOMs intact bilaterally Chest Wall inspection of chest normal and palpation of chest normal Resp normal respiratory effort and clear to auscultation bilaterally Cardio regular rate and regular rhythm GI GI Narrative: Abdomen soft with mild tenderness in the lower abdomen. No guarding or rebound. Active bowel sounds noted. Extremity normal to inspection Neuro oriented x3 and no sensory deficits noted Motor Exam: strength 5/5 throughout Psych mental status grossly normal Skin no rashes or lesions noted MDM MDM MDM Narrative Medical decision making narrative: IV line initiated. Labwork obtained to evaluate for leukocytosis, anemia, and electrolyte derangement. Urinalysis obtained to evaluate for infection/hematuria. CT scan abdomen pelvis IV contrast will be obtained to evaluate for colitis, diverticulitis, bowel obstruction. History & Record Review Discussion w/independent historian: Patient and Family Lab Data Attestation: I reviewed the patient's lab results. Labs: Laboratory Results - last 24 hr 07/08/23 07/08/23 11:45 12:50 WBC 9.0 RBC 4.57 Hgb 13.3 Hct 40.8 MCV 89.3 MCH 29.1 MCHC 32.6 RDW Std Deviation 43.4 RDW Coeff of Rajesh 13.2 Plt Count 286 MPV 9.7 Immature Gran % (Auto) 0.400 Neut % (Auto) 80.3 H Lymph % (Auto) 11.5 L [place] % (Auto) 6.9 Eos % (Auto) 0.3 Baso % (Auto) 0.6 Absolute Neuts (auto) 7.2 Absolute Lymphs (auto) 1.03 Nucleated RBC % 0 Sodium 137 Potassium 3.8 Chloride 106 Carbon Dioxide 23.0 Anion Gap 8 BUN 15 Creatinine 0.78 Estim Creat Clear Calc 50.04 Est GFR (MDRD) Af Amer 91 Est GFR (MDRD) Non-Af 75 BUN/Creatinine Ratio 19.2 Glucose 118 H Calcium 8.8 Total Bilirubin 0.50 Direct Bilirubin 0.17 AST 24 ALT 28 Alkaline Phosphatase 75 Total Protein 6.7 Albumin 3.6 Globulin 3.1 Urine Color Yellow Urine Clarity Clear Urine pH 7.0 Ur Specific [place] 1.010 Urine Protein 15 H Urine Glucose (UA) Normal Urine Ketones 5 H Urine Occult Blood 25 H Urine Nitrite Negative Urine Bilirubin Negative Urine Urobilinogen Normal Ur Leukocyte Esterase Negative Urine RBC 0 SEEN Urine WBC 5-10 SEEN Ur Squamous Epith Cells 0-5 SEEN Urine Bacteria 1+ Urine Mucus 0 SEEN Radiography Diagnostic Testing: Clinical Impression(s) from Imaging Studies Abdomen/Pelvis CT 07/08/23 11:39 IMPRESSION: Moderate gastric wall thickening, which can be seen with gastritis. Consider follow-up to exclude underlying lesion. Colonic diverticulosis without acute diverticulitis. Electronically Signed: Miryam Andres MD at 12:50 EDT , Treatment and Re-Evaluation :: CBC was normal white count 9.0 with a hemoglobin of 13.3. 80% neutrophils are noted. Chemistry studies are unremarkable with normal renal function. Glucose is 118. LFTs unremarkable. Urinalysis does reveal infection with 5-10 white cells and 1+ bacteria. CT scan of the abdomen pelvis with IV contrast reveals moderate gastric wall thickening which can be seen with gastritis. Colonic diverticulosis is noted without diverticulitis. On repeat evaluation patient resting more comfortably. I will treat her with Macrobid along with Azo for her UTI. Urine was sent for culture. I will also give the patient Zofran for nausea. Return instructions are given. Discharge Plan Triage Chief Complaint: Abd Pain ED Provider: Mikki Pemberton Dx/Rx/DC Orders Clinical Impression: UTI (urinary tract infection) Instructions: ED Cystitis Female Adult Prescriptions: New nitrofurantoin monohyd/m-cryst [Macrobid] 100 mg capsule 100 mg PO Q12H 5 Days Qty: 10 0RF Rx Instructions: must administer with a meal/food phenazopyridine [Pyridium] 200 mg tablet 200 mg PO BID PRN PRN (Reason: Pain) Qty: 10 0RF ondansetron 4 mg tablet,disintegrating 4 mg PO Q8H PRN PRN (Reason: Nausea) Qty: 10 0RF No Action ibuprofen 600 mg tablet 600 mg PO Q6H PRN (Reason: pain) Qty: 30 0RF levothyroxine 25 mcg tablet 25 mcg PO DAILY aspirin 81 mg Tablet,Chewable 81 mg PO BREAKFAST Qty: 60 0RF galantamine 8 mg capsule,ext rel. pellets 24 hr 8 mg PO DINNER Primary Care Provider: Ganesh Jacome Chi Referrals: Lelo Christine MD [Med Staff - Reproducer] - Ganesh Jacome Chi, MD [Primary Care Provider] - 5-7 Days Disposition Disposition: Home, Self Care
[2023-07-08] MEDS: 0.9% Normal Saline (1000mL) 1,000 ML 150 ML IV (12:02)
[2023-07-08 12:08] LABS: AST(SGOT) 24 U/L (15-37); Alanine Aminotransfer ALT/SGPT 28 U/L (13-56); Albumin, Serum 3.6 g/dL (3.2-5.0); Alkaline Phosphatase 75 U/L (45-117); Anion Gap 8 (5-15); BUN 15 mg/dL (7-18); BUN/Creat Ratio 19.2 RATIO (10-20); Bilirubin, Direct 0.17 mg/dL (0.00-0.30); Calcium,Total 8.8 mg/dL (8.5-10.1); Chloride 106 mmol/L (98-107); Creatinine, Serum 0.78 mg/dL (0.55-1.02); EST Glomerular Filtration Rate 75 mL/min (>60); Est Glom Filt Rate - Afr Amer 91 mL/min (>60); Estimated Creatinine Clearance 50.04 ml/min; Globulin 3.1 g/dL (2.2-4.2); Glucose 118 mg/dL (74-106); Potassium 3.8 mmol/L (3.5-5.1); Protein, Total 6.7 g/dL (6.4-8.2); Sodium Level 137 mmol/L (136-145)
--- OUTSIDE RECORDS SUMMARY | 2023-07-08 12:09 | XMS RPT_ITS | CCD ---
Author Name Unknown Address [address] [place] [address] Organization [facility] Care Team Providers Care Transactional Attorney Name Role Phone FRANCE WILLIAMSON Unavailable Unavailable Encounters Encounter Date Encounter Type Care Provider Facility Start: 04-26-2018 End: 04-26-2018 Patient encounter procedure FRANCE WILLIAMSON Facility:B Payers Date Payer Category Payer Unknown [id number] 1945 Unknown [id number] Summary Purpose Family History No Family History [...] BE BASED ON THE PRIMARY CLINICAL RECORDS. [employer] [facility]. provides no warranty or guarantee of the accuracy or completeness of information in this document.
[2023-07-08 12:56] LABS: Mucous, Urine 0 SEEN /hpf (<or=2+); Red Blood Cells-Urine 0 SEEN /hpf (0-5)
[2023-07-08 12:57] LABS: Color, Urine Yellow (Yellow); Glucose, Dipstick Normal (Normal); Ketone-Dipstick 5 mg/dl (Negative); Leukocyte Esterase-Dipstick Negative /ul (Negative); Nitrite-Dipstick Negative (Negative); Occult Blood-Urine 25 /ul (Negative); Protein-Dipstick 15 mg/dl (Negative); Urine Bilirubin Dipstick Negative (Negative); Urine Clarity Clear (Clear); Urine Urobilinogen Normal (Normal)
[2023-07-08 13:00] VITALS: BP 139/78; PULSE 69; RESP 18; TEMP 36.9; O2SAT 98
[2023-07-08 13:17] LABS: Bacteria 1+ /hpf (None Seen); Squamous Epithelial Cells - UA 0-5 SEEN /hpf (5-10); White Blood Cells 5-10 SEEN /hpf (0-5)
[2023-07-08] MEDS: Nitrofurantoin Macrocrystals 100 MG Capsule PO (13:31)
[2023-07-08] MEDS: Phenazopyridine 95 MG Tablet 190 MG PO (13:31)
[2023-07-08 13:33] VITALS: BP 139/78; PULSE 69; RESP 18; TEMP 36.9; O2SAT 98
== END 2023-07-08 13:50 | disposition home or self-care (01) ==
PROVIDERS: Emergency Provider Emergency Medicine; PCP Family Medicine Geriatric Medicine; Visit Provider Emergency Medicine
DX: N39.0 Urinary tract infection, site not specified (principal); Z86.73 Personal history of transient ischemic attack (TIA), and cerebral infarction without residual deficits; Z85.828 Personal history of other malignant neoplasm of skin; E03.9 Hypothyroidism, unspecified; Z79.899 Other long term (current) drug therapy
CPT/HCPCS: 74177; 80048; 80076; 81001; 85025; 87086; 87088; 96361; 96374; 96375; 96376; 99285; J7030; Q9967; A4216; J2405

== ENCOUNTER 2023-07-09 14:14 | Outpatient (CLI) | payer MEDICARE, SELFPAY ==
[2023-07-11 15:08] LABS: H.Pylori Breath Test Negative (Negative)
== END 2023-07-09 23:59 | disposition home or self-care (01) ==
LOC: LAB 14:15
PROVIDERS: PCP Family Medicine Geriatric Medicine; Referring Provider Family Medicine Geriatric Medicine; Visit Provider Family Medicine Geriatric Medicine
DX: K29.70 Gastritis, unspecified, without bleeding (principal); B96.81 Helicobacter pylori [H. pylori] as the cause of diseases classified elsewhere
CPT/HCPCS: 83013

== ENCOUNTER → 2023-08-17 | Outpatient (CLI) | payer MEDICARE, SELFPAY ==
--- NOTE | 2023-08-17 14:45 | RAD_ITS ---
STUDY: X-RAY - LUMBAR SPINE REASON FOR EXAM: Female, 78 years old. LOW BACK PAIN TECHNIQUE: 4 view(s) of the lumbar spine were obtained. COMPARISON: None FINDINGS: Normal lumbar lordosis. There is severe levo scoliosis. There is a normal alignment of the vertebrae. No evidence for acute fracture or subluxation.. Multilevel disc space narrowing and facet arthropathy most pronounced at L3-4 L4-5 and L5-S1... The soft tissue structures are unremarkable. RAD/L/S Spine Min 4 Views IMPRESSION: Scoliosis and degenerative change. No acute fracture or other significant bony pathology. Electronically Signed: Zenon Gerardo MD at 23:01 EDT ,
--- NOTE | 2023-08-17 14:45 | RAD_ITS ---
STUDY: X-RAY - CERVICAL SPINE REASON FOR EXAM: Female, 78 years old. LOW BACK PAIN TECHNIQUE: 4 view(s) of the cervical spine were obtained. COMPARISON: None FINDINGS: Normal anterior atlantoaxial articulation. Normal odontoid process. Mild cervical lordosis possibly due to muscle spasm or positioning. Grade 1 spondylolisthesis at C3-4 No evidence for acute fracture or subluxation.. No lytic or sclerotic bony lesions . There is narrowing of C4-5, C5-6 and C6-7 disc spaces with endplate spurring. The soft tissue structures are unremarkable. RAD/Cerv Spine 2 or 3 Views IMPRESSION: Moderate spondylosis. No acute fracture or other significant bony pathology. Electronically Signed: Zenon Gerardo MD at 22:59 EDT ,
== END | disposition home or self-care (01) ==
LOC: RAD 14:41
PROVIDERS: PCP Family Medicine Geriatric Medicine; Referring Provider Family Medicine Geriatric Medicine; Visit Provider Family Medicine Geriatric Medicine
DX: M54.50 Low back pain, unspecified (principal)
CPT/HCPCS: 72040; 72110

== ENCOUNTER → 2023-10-09 | Outpatient (CLI) | payer MEDICARE, SELFPAY ==
--- NOTE | 2023-10-09 11:52 | RAD_ITS ---
STUDY: X-RAY - RIGHT HAND REASON FOR EXAM: Female, 78 years old. FALL TECHNIQUE: 3 view(s) of the hand. COMPARISON: None. FINDINGS: Normal radiocarpal articulation. Normal distal radioulnar joint. Normal visualized carpal bones. Normal carpal articulations There is degenerative arthrosis of the carpometacarpal articulation of the thumb with lateral subluxation of the first metacarpus. Normal second through fifth carpometacarpal joints. Normal metacarpi. There is degenerative arthrosis of the metacarpophalangeal (MCP) joints. There is degenerative arthrosis of the interphalangeal joint of the thumb with articular joint space narrowing. Normal proximal and distal phalanges of the thumb. Normal metacarpophalangeal joints of the second through fifth fingers. There is diffuse articular joint space narrowing of the proximal and distal interphalangeal joints of the second through fifth fingers, but without erosive changes or periarticular soft tissue swelling. Normal phalanges of the second through fifth fingers. The soft tissue structures are unremarkable. RAD/Hand Min 3 Views IMPRESSION: No acute fracture or dislocation. Diffuse degenerative changes. Electronically Signed: Oskar Lawrence MD at 17:14 EDT ,
--- NOTE | 2023-10-09 12:10 | CT_ITS ---
STUDY: CT BRAIN WITHOUT CONTRAST REASON FOR EXAM: Female, 78 years old. FALL RADIATION DOSAGE (If Supplied By Facility): CTDIvol = ( 44.99 ) mGy, DLP = ( 796.11 ) mGycm TECHNIQUE: Transaxial CT imaging of the brain was performed without administration of intravenous contrast material. Individualized dose optimization techniques were used for this CT. COMPARISON: Comparison is made with prior study dated April 24, 2023. FINDINGS: Normal soft tissue structures. Normal calvarium. There is mild cerebral atrophy with widening of the extra-axial spaces and ventricular dilatation. There are areas of decreased attenuation within the white matter tracts of the supratentorial brain, consistent with microvascular disease changes. Stable old lacunar infarct in the insular cortex of the left temporal lobe. Normal brainstem. There is mild cerebellar atrophy. There is no intracranial hemorrhage. There are no findings of an acute ischemic infarction. There is opacification of the right maxillary sinus. CT/Brain/Head without Contrast IMPRESSION: Chronic involutional changes of the brain. Opacification of the right maxillary sinus. Electronically Signed: Mic Lowery MD at 13:08 EDT ,
[2023-10-09 12:50] LABS: Absolute Lymphocyte Count 1.57 X10^3/uL (0.83-4.51); Absolute Neutrophil Count 9.1 X10^3/uL (2.0-7.7); Basophil# 0.03 X10^3/uL; Basophil% 0.3 % (0-1); Eosinophil# 0.02 X10^3/uL; Eosinophils% 0.2 % (0-5); Hematocrit 43.7 % (37-47); Hemoglobin 14.1 g/dL (12.0-15.0); Lymphocyte # 1.57 X10^3/ul (0.83-4.51); Lymphocyte % 13.8 % (19-41); Mean Corp Hgb Conc 32.3 g/dL (32-36); Mean Corpuscular Hgb 29.5 pg (27.0-32.0); Mean Corpuscular Volume 91.4 fL (81-99); Mean Platelet Vol. 9.3 fl (6.2-12.0); Monocyte# 0.63 X10^3/uL; Monocyte% 5.5 % (0-10); NRBC Flagged by Analyzer 0 % (0-5); Neutrophil # 9.09 X10^3/uL (2.7-7.7); Neutrophil % 79.8 % (47-70); Platelet Count 296 K/mm3 (150-450); RBC Distribution Width CV 13.3 % (11.6-14.6); RBC Distribution Width SD 45.3 fl (35.1-43.9); Red Blood Count 4.78 M/mm3 (4.2-5.4); White Blood Count 11.4 K/mm3 (4.4-11.0)
[2023-10-09 13:54] LABS: AST(SGOT) 30 U/L (15-37); Alanine Aminotransfer ALT/SGPT 32 U/L (13-56); Albumin, Serum 3.8 g/dL (3.2-5.0); Alkaline Phosphatase 94 U/L (45-117); Anion Gap 5 (5-15); BUN 16 mg/dL (7-18); BUN/Creat Ratio 21.1 RATIO (10-20); Calcium,Total 9.6 mg/dL (8.5-10.1); Chloride 108 mmol/L (98-107); Creatinine, Serum 0.76 mg/dL (0.55-1.02); EST Glomerular Filtration Rate 78 mL/min (>60); Est Glom Filt Rate - Afr Amer 94 mL/min (>60); Globulin 3.7 g/dL (2.2-4.2); Glucose 95 mg/dL (74-106); Potassium 4.3 mmol/L (3.5-5.1); Protein, Total 7.5 g/dL (6.4-8.2); Sodium Level 138 mmol/L (136-145)
== END | disposition home or self-care (01) ==
PROVIDERS: PCP Family Medicine Geriatric Medicine; Referring Provider Family Medicine Geriatric Medicine; Visit Provider Family Medicine Geriatric Medicine
DX: N39.0 Urinary tract infection, site not specified (principal); M79.641 Pain in right hand; S06.0XAA Concussion with loss of consciousness status unknown, initial encounter; S09.90XA Unspecified injury of head, initial encounter; E03.9 Hypothyroidism, unspecified; L03.811 Cellulitis of head [any part, except face]; X58.XXXA Exposure to other specified factors, initial encounter
CPT/HCPCS: 36415; 70450; 73130; 80053; 85025; 87086

== ENCOUNTER → 2023-11-29 | Outpatient (CLI) | payer MEDICARE, SELFPAY ==
[2023-11-29 15:07] LABS: Absolute Neutrophil Count 4.9 X10^3/uL (2.0-7.7); Basophil# 0.04 X10^3/uL; Basophil% 0.6 % (0-1); Eosinophil# 0.09 X10^3/uL; Eosinophils% 1.2 % (0-5); Hematocrit 42.6 % (37-47); Hemoglobin 13.7 g/dL (12.0-15.0); Lymphocyte % 23.4 % (19-41); Mean Corp Hgb Conc 32.2 g/dL (32-36); Mean Corpuscular Hgb 29.3 pg (27.0-32.0); Mean Platelet Vol. 9.7 fl (6.2-12.0); Monocyte% 6.9 % (0-10); NRBC Flagged by Analyzer 0 % (0-5); Neutrophil # 4.92 X10^3/uL (2.7-7.7); Neutrophil % 67.8 % (47-70); Platelet Count 294 K/mm3 (150-450); RBC Distribution Width CV 13.6 % (11.6-14.6); RBC Distribution Width SD 45.9 fl (35.1-43.9); Red Blood Count 4.68 M/mm3 (4.2-5.4); White Blood Count 7.3 K/mm3 (4.4-11.0)
[2023-11-29 15:45] LABS: Vitamin D,25 Hydroxy 28.3 ng/mL
[2023-11-29 15:54] LABS: AST(SGOT) 20 U/L (15-37); Alanine Aminotransfer ALT/SGPT 18 U/L (13-56); Albumin, Serum 3.5 g/dL (3.2-5.0); Alkaline Phosphatase 79 U/L (45-117); Anion Gap 6 (5-15); BUN 21 mg/dL (7-18); BUN/Creat Ratio 24.1 RATIO (10-20); Calcium,Total 9.2 mg/dL (8.5-10.1); Chloride 110 mmol/L (98-107); Cholesterol 207 mg/dL (200); Creatinine, Serum 0.87 mg/dL (0.55-1.02); EST Glomerular Filtration Rate 66 mL/min (>60); Est Glom Filt Rate - Afr Amer 80 mL/min (>60); Globulin 3.4 g/dL (2.2-4.2); Glucose 97 mg/dL (74-106); High Density Lipoprotein 82 mg/dL; Potassium 4.2 mmol/L (3.5-5.1); Protein, Total 6.9 g/dL (6.4-8.2); Sodium Level 141 mmol/L (136-145); Thyroid Stim Hormone (TSH) 0.87 uIU/mL (0.358-3.74); Triglycerides 120 mg/dL; Very Low Density Lipoprotein 24 mg/dL (5-40)
== END | disposition home or self-care (01) ==
LOC: POLAB3 14:29
PROVIDERS: PCP Family Medicine Geriatric Medicine; Visit Provider Family Medicine Geriatric Medicine
DX: R53.83 Other fatigue (principal); E55.9 Vitamin D deficiency, unspecified; E78.5 Hyperlipidemia, unspecified
CPT/HCPCS: 36415; 80053; 80061; 82306; 84443; 85025

== ENCOUNTER → 2024-02-27 | Outpatient (CLI) | payer MEDICARE, SELFPAY ==
[2024-02-27 11:16] LABS: Absolute Lymphocyte Count 2.18 X10^3/uL (0.83-4.51); Absolute Neutrophil Count 4.5 X10^3/uL (2.0-7.7); Basophil# 0.04 X10^3/uL; Basophil% 0.5 % (0-1); Eosinophil# 0.11 X10^3/uL; Eosinophils% 1.5 % (0-5); Hemoglobin 13.9 g/dL (12.0-15.0); Lymphocyte # 2.18 X10^3/ul (0.83-4.51); Lymphocyte % 29.5 % (19-41); Mean Corp Hgb Conc 31.6 g/dL (32-36); Mean Corpuscular Hgb 29.5 pg (27.0-32.0); Mean Corpuscular Volume 93.4 fL (81-99); Mean Platelet Vol. 9.4 fl (6.2-12.0); Monocyte# 0.58 X10^3/uL; Monocyte% 7.8 % (0-10); NRBC Flagged by Analyzer 0 % (0-5); Neutrophil # 4.46 X10^3/uL (2.7-7.7); Neutrophil % 60.4 % (47-70); Platelet Count 338 K/mm3 (150-450); RBC Distribution Width CV 13.3 % (11.6-14.6); RBC Distribution Width SD 45.5 fl (35.1-43.9); Red Blood Count 4.71 M/mm3 (4.2-5.4); White Blood Count 7.4 K/mm3 (4.4-11.0)
[2024-02-27 12:03] LABS: ALB/GLOB Ratio 1.1 RATIO (0.9-2.4); AST(SGOT) 21 U/L (15-37); Alanine Aminotransfer ALT/SGPT 26 U/L (13-56); Albumin, Serum 3.9 g/dL (3.2-5.0); Alkaline Phosphatase 101 U/L (45-117); Anion Gap 6 (5-15); BUN 22 mg/dL (7-18); BUN/Creat Ratio 26.6 RATIO (10-20); Calcium,Total 9.3 mg/dL (8.5-10.1); Chloride 112 mmol/L (98-107); Creatinine, Serum 0.83 mg/dL (0.55-1.02); EST Glomerular Filtration Rate 71 mL/min (>60); Est Glom Filt Rate - Afr Amer 85 mL/min (>60); Globulin 3.4 g/dL (2.2-4.2); Glucose 93 mg/dL (74-106); Potassium 4.2 mmol/L (3.5-5.1); Protein, Total 7.3 g/dL (6.4-8.2); Sodium Level 142 mmol/L (136-145)
== END | disposition home or self-care (01) ==
LOC: POLAB3 11:03
PROVIDERS: PCP Family Medicine Geriatric Medicine; Visit Provider Family Medicine Geriatric Medicine
DX: R53.83 Other fatigue (principal); E55.9 Vitamin D deficiency, unspecified
CPT/HCPCS: 36415; 80053; 82306; 84443; 85025

== ENCOUNTER 2024-04-02 12:00 | Outpatient (RCR) | payer MEDICARE, SELFPAY | END 2024-04-02 17:26 | disposition home or self-care (01) | LOC: PT 12:00 | PROVIDERS: PCP Family Medicine Geriatric Medicine; Referring Provider Family Medicine Geriatric Medicine; Visit Provider Family Medicine Geriatric Medicine | DX: R26.9 Unspecified abnormalities of gait and mobility (principal); G20.A1 Parkinson's disease without dyskinesia, without mention of fluctuations | CPT/HCPCS: 97110; 97116; 97161; 97530 ==

== ENCOUNTER 2024-04-06 10:38 | Emergency (ER) | payer MEDICARE, SELFPAY ==
[2024-04-06 10:39] VITALS: BP 152/71; PULSE 66; RESP 16; TEMP 35.8; O2SAT 100; BMI 20.7
--- NOTE | 2024-04-06 11:23 | RAD_ITS ---
STUDY: X-RAY CHEST REASON FOR EXAM: Female, 78 years old. Cough TECHNIQUE: Single AP portable view of the chest. COMPARISON: April 24, 2023. FINDINGS: The lungs are clear and expanded. There is no demonstrated pleural abnormality. Normal size heart. Normal mediastinum and alex. Normal visualized pulmonary arteries. Normal visualized aortic arch and descending thoracic aorta. There is demineralization of the osseous structures. There is a dextroscoliosis and degenerative change of the thoracic spine. Normal visualized ribs, clavicles, and shoulders. There is no demonstrated abnormality of the visualized soft tissue structures of the upper abdomen. RAD/Chest 1 View (Portable) IMPRESSION: Degenerative changes, as described above. No demonstrated acute cardiopulmonary process. Electronically Signed: Kenneth Braden MD at 13:11 EST ,
--- NOTE | 2024-04-06 11:23 | CT_ITS ---
STUDY: CT BRAIN WITHOUT CONTRAST REASON FOR EXAM: Female, 78 years old. Confusion RADIATION DOSAGE (If Supplied By Facility): CTDIvol = ( 44.99 ) mGy, DLP = ( 745.49 ) mGycm TECHNIQUE: Transaxial CT imaging of the brain was performed without administration of intravenous contrast material. Individualized dose optimization techniques were used for this CT. COMPARISON: November 08, 2023. FINDINGS: Normal soft tissue structures. Normal calvarium. There is moderate cerebral atrophy with widening of the extra-axial spaces and ventricular dilatation. There are areas of decreased attenuation within the white matter tracts of the supratentorial brain, consistent with microvascular disease changes. Normal basal ganglia and thalami. Normal brainstem. Normal cerebellum. There is no intracranial hemorrhage. There are no findings of an acute ischemic infarction. There is opacification of the right maxillary sinus. CT/Brain/Head without Contrast IMPRESSION: Chronic involutional changes of the brain. Electronically Signed: Kenneth Braden MD at 13:06 EST ,
--- NOTE | 2024-04-06 11:25 | EDS_ITS ---
HPI <EFFIE Kelly - Last Filed: 04/06/24 13:20> History of Present Illness Chief Complaint: Neuro S/Sx Narrative Narrative: Patient is an 78-year-old female with history of Lewy body dementia, chronic pain, hypothyroidism who presents to the emergency department with her daughter for multiple days of confusion. Per the daughter, she is just concerned, per the daughter the patient has had some slurred speech on and off over the last several days. She does have history of this with her dementia. Patient also was little more weak this morning and they decided to come in to get checked. The patient at this time has no complaints. Here for evaluation. Denies any fever chills nausea vomiting. Patient denies any specific pain. PFS <EFFIE Kelly - Last Filed: 04/06/24 13:20> [facility] Medical History (Updated 04/06/24 @ 13:19 by EFFIE Kelly) Lewy body dementia Weakness Fever COVID-19 History of CVA (cerebrovascular accident) Hypothyroid Skin cancer Home Medications ?Medication ?Instructions ?Recorded ?Last Taken ?Type levothyroxine 25 mcg tablet 25 mcg PO DAILY hypothyroid 08/30/22 04/23/23 08:00 History 25 mcg aspirin 81 mg chewable tablet 81 mg PO BREAKFAST #60 tabs 08/31/22 04/23/23 08:00 Rx 81 mg carbidopa 25 mg-levodopa 100 mg 1 tab PO TID 04/06/24 Unknown History tablet cephalexin 500 mg capsule 500 mg PO TID 7 days #21 caps 04/06/24 Unknown Rx Allergy/AdvReac Type Severity Reaction Status Date / Time sulfamethoxazole (From AdvReac Vomiting Verified 07/08/23 12:14 Bactrim) trimethoprim (From Bactrim) AdvReac Vomiting Verified 07/08/23 12:14 Family History Mother Abdominal aortic aneurysm Heart disease Uncle Abdominal aortic aneurysm Brother Abdominal aortic aneurysm Father Leukemia 59 secondary to Leukemia. Surgical History skin cancer removal History of rotator cuff surgery Social History Smoking Status: Never smoker alcohol intake: never substance use type: does not use caffeine: Yes what type of physical activity do you participate in: walking seatbelt use: always do you feel safe at home: Yes additional social history: - retired ROS <EFFIE Kelly - Last Filed: 04/06/24 13:20> ROS ED ROS Narrative Constitutional: Negative for fever, chills, weight loss. Positive for weakness Eyes: Negative for vision loss, vision change, double vision ENT: Negative for any sore throat, ear pain, congestion Cardiovascular: Negative for any chest pain, tightness, palpitations Respiratory: Negative for any cough, sputum production, hemoptysis, dyspnea, dyspnea on exertion, orthopnea Gastrointestinal: Negative for any abdominal pain, nausea, vomiting, diarrhea, constipation, blood in stool, blood in vomit : Negative for any urinary frequency, dysuria, retention, blood in urine Muscle skeletal: Negative for any neck pain, back pain Neurological: Negative for any headache, syncope, dizziness. Positive for slurred speech intermittently Skin: Negative for any rashes, itching, abrasions, lacerations Psychiatric: Negative for any depression, anxiety, stress, suicidal ideation, homicidal ideation Hematologic: Negative for any excessive bruising, easy bleeding EXAM <EFFIE Kelly - Last Filed: 04/06/24 13:20> Physical Exam Narrative Exam Narrative: Vital signs reviewed. Patient is in no obvious distress, patient is alert and orient x 4. Patient's speech is clear, patient is acting appropriate per the daughter. HEET: Head normocephalic atraumatic, TMs clear bilaterally. Posterior pharynx is clear, moist mucous membranes. Nares clear bilaterally. Neck: Supple with no lymphadenopathy or tenderness. No signs of meningismus. Cardiac: Regular rate and rhythm no murmurs gallops or rubs, equal peripheral pulses bilaterally. Respiratory: Lungs clear to auscultation bilaterally. No chest tenderness. Abdomen: Soft, nontender, nondistended. No abdominal bruit or pulsatile masses. No hepatosplenomegaly Extremities: No peripheral edema, no signs of gross trauma or deformity. Active full range of motion of all extremities. Neuro: Cranial nerves II through XII intact, no focal neurological deficits. NIH stroke scale 0 Skin: Clean dry and intact with no rash, purpura, petechiae, vesicles or pustules. Backs/flank: No CVA tenderness, no midline spinal tenderness, no deformity. Psych: Normal mood and affect. No SI, HI or acute psychosis. Const Vital Signs: 04/06/24 10:39 04/06/24 12:28 04/06/24 12:44 Temperature 96.5 F L Temperature Source Temporal Pulse Rate 66 68 Respiratory Rate 16 18 Blood Pressure 152/71 H 149/83 H Blood Pressure Mean 98 105 Pulse Ox 100 100 Oxygen Delivery Method Room Air Room Air <Dr. Frank Cross DO - Last Filed: 04/06/24 13:18> Physical Exam Const Vital Signs: 04/06/24 10:39 04/06/24 12:28 04/06/24 12:44 Temperature 96.5 F L Temperature Source Temporal Pulse Rate 66 68 Respiratory Rate 16 18 Blood Pressure 152/71 H 149/83 H Blood Pressure Mean 98 105 Pulse Ox 100 100 Oxygen Delivery Method Room Air Room Air MDM <EFFIE Kelly - Last Filed: 04/06/24 13:20> [facility] Lab Data Labs: Laboratory Results - last 24 hr 04/06/24 04/06/24 11:00 12:36 WBC 7.0 RBC 4.69 Hgb 14.1 Hct 43.6 MCV 93.0 MCH 30.1 MCHC 32.3 RDW Std Deviation 44.8 H RDW Coeff of Rajesh 13.2 Plt Count 343 MPV 9.8 Immature Gran % (Auto) 0.300 Neut % (Auto) 69.5 Lymph % (Auto) 20.7 [place] % (Auto) 7.2 Eos % (Auto) 1.4 Baso % (Auto) 0.9 Absolute Neuts (auto) 4.8 Absolute Lymphs (auto) 1.44 Nucleated RBC % 0 Sodium 143 Potassium 3.9 Chloride 107 Carbon Dioxide 28.0 Anion Gap 8 BUN 18 Creatinine 0.77 Estim Creat Clear Calc 51.61 Est GFR (MDRD) Af Amer 93 Est GFR (MDRD) Non-Af 77 BUN/Creatinine Ratio 23.5 H Glucose 115 H Calcium 9.6 Urine Color Straw Urine Clarity Clear Urine pH 7.0 Ur Specific [place] 1.010 Urine Protein 30 H Urine Glucose (UA) Normal Urine Ketones Negative Urine Occult Blood 25 H Urine Nitrite Positive H Urine Bilirubin Negative Urine Urobilinogen Normal Ur Leukocyte Esterase 25 H Urine RBC 0-5 SEEN Urine WBC 25-50 SEEN Ur Squamous Epith Cells 5-10 SEEN Urine Bacteria 2+ Urine Mucus 1+ Radiography Diagnostic Testing: Clinical Impression(s) from Imaging Studies Brain CT 04/06/24 11:23 IMPRESSION: Chronic involutional changes of the brain. Electronically Signed: Kenneth Braden MD at 13:06 EST , Chest X-Ray 04/06/24 11:23 IMPRESSION: Degenerative changes, as described above. No demonstrated acute cardiopulmonary process. Electronically Signed: Kenneth Braden MD at 13:11 EST , Treatment and Re-Evaluation :: Differential diagnosis includes however is not limited to: TIA, CVA, electrolyte abnormality, community-acquired pneumonia, UTI, pathology of dementia Patient appears generally well, vital signs are stable, patient is nontoxic- appearing. Presenting to the emerged department with complaints of intermittent confusion, slurred speech over the last couple days. Patient will receive a full workup, including basic laboratory values, urinalysis, chest x-ray, COVID flu RSV. Patient will receive a CT scan of the brain. All radiologic examinations were read, reviewed by the emergency department attending. From these reads, a plan of care will be put in place. Patient CT scan of the brain showed no acute process, chest x-ray showed no acute cardio pulmonary pathology. CBC was unremarkable, chemistries were unremarkable. Patient's urinalysis was positive for infection. 2+ bacteria 25- 50 white blood cells, 25 leukocytes, positive nitrites. This to be sent for culture. Patient is given IV Rocephin here in the emergency department. Patient will be continue with Keflex 3 times a day for 7 days. Patient will maintain hydration. She will return for any worsening symptoms. All questions were answered. Patient was ambulatory several times in the department to the bathroom. Patient does not with her daughter. They were given return precautions, all questions answered, stable for discharge. <Dr. Frank Cross, DO - Last Filed: 04/06/24 13:18> [facility] MDM Narrative Medical decision making narrative: I have personally performed a face to face assessment of the patient and have reviewed the HAKEEM Note. I performed a substantive portion of the visit including all aspects of the following. My russ findings include: History: Patient presents with difficulty speaking that began yesterday. Patient states became worse this morning. Patient has a history of Lewy body dementia and has had similar episodes in the past. Patient states she was feeling unsteady on her feet today. Daughter stated that she noted patient was feeling dizzy. Patient denies any chest pain or shortness of breath. Patient denies any headaches. Patient denies any fevers or chills. Patient denies any paresthesias or weakness. Exam: Vital signs are stable. Patient is afebrile. Patient is in no acute distress. Cranial nerves II through XII are intact. Strength is 5/5 bilaterally in the upper and lower extremities. There are no sensory deficits noted. Heart was regular rate and rhythm. Lungs are clear and equal bilaterally. Abdomen is soft. Bowel sounds are normal. There is no tenderness. Medical Decision Making: Differential diagnosis includes stroke, Lewy body dementia, electrolyte abnormality, TIA, urinary tract infection, and viral illness. CT scan of the brain will be obtained to assess for stroke and intracranial bleeding. CBC will be obtained to assess for leukocytosis and anemia. Basic metabolic profile will be obtained to assess for electrolyte abnormality and renal function. Urinalysis will be obtained to assess for urinary tract infection and hematuria. Chest x-ray will be obtained to assess for pneumonia and bronchitis. COVID-19, influenza, and RSV PCR will be obtained to assess for viral illness. CBC was reviewed and was within normal limits. Basic metabolic profile was reviewed and was essentially within normal limits. COVID-19 PCR was reviewed and was negative. Influenza PCR was reviewed and was negative for influenza A and influenza B. RSV PCR was reviewed and was negative. Portable 1 view chest x-ray was obtained. On my independent interpretation, lung sanchez are clear. There is normal cardiac silhouette. Bony thorax is normal. There is no acute process noted. Radiologist also interpreted the x-ray and agrees. CT scan of the brain was obtained. There is no acute intracranial abnormality. This was interpreted by the radiologist and was also independently reviewed by myself. Urinalysis was reviewed. There are positive nitrites with 25-50 white blood cells. Urine culture was ordered. Patient was given a dose of Rocephin here. Patient given a prescription for Keflex. Patient was instructed to drink plenty of fluids. Patient was instructed to follow-up with her primary care physician in 5 to 7 days. Patient and family understood and were agreeable with the plan. All questions were answered. Lab Data Labs: Laboratory Results - last 24 hr 04/06/24 04/06/24 11:00 12:36 WBC 7.0 RBC 4.69 Hgb 14.1 Hct 43.6 MCV 93.0 MCH 30.1 MCHC 32.3 RDW Std Deviation 44.8 H RDW Coeff of Rajesh 13.2 Plt Count 343 MPV 9.8 Immature Gran % (Auto) 0.300 Neut % (Auto) 69.5 Lymph % (Auto) 20.7 [place] % (Auto) 7.2 Eos % (Auto) 1.4 Baso % (Auto) 0.9 Absolute Neuts (auto) 4.8 Absolute Lymphs (auto) 1.44 Nucleated RBC % 0 Sodium 143 Potassium 3.9 Chloride 107 Carbon Dioxide 28.0 Anion Gap 8 BUN 18 Creatinine 0.77 Estim Creat Clear Calc 51.61 Est GFR (MDRD) Af Amer 93 Est GFR (MDRD) Non-Af 77 BUN/Creatinine Ratio 23.5 H Glucose 115 H Calcium 9.6 Urine Color Straw Urine Clarity Clear Urine pH 7.0 Ur Specific [place] 1.010 Urine Protein 30 H Urine Glucose (UA) Normal Urine Ketones Negative Urine Occult Blood 25 H Urine Nitrite Positive H Urine Bilirubin Negative Urine Urobilinogen Normal Ur Leukocyte Esterase 25 H Urine RBC 0-5 SEEN Urine WBC 25-50 SEEN Ur Squamous Epith Cells 5-10 SEEN Urine Bacteria 2+ Urine Mucus 1+ Radiography Diagnostic Testing: Clinical Impression(s) from Imaging Studies Brain CT 04/06/24 11:23 IMPRESSION: Chronic involutional changes of the brain. Electronically Signed: Kenneth Braden MD at 13:06 EST , Chest X-Ray 04/06/24 11:23 IMPRESSION: Degenerative changes, as described above. No demonstrated acute cardiopulmonary process. Electronically Signed: Kenneth Braden MD at 13:11 EST , Discharge Plan Triage Chief Complaint: Neuro S/Sx ED Midlevel Provider: Ashish Maldonado ED Provider: Frank Cross Dx/Rx/DC Orders Clinical Impression: Acute UTI, History of dementia Instructions: Urinary Tract Infections in Women Prescriptions: New cephalexin 500 mg capsule 500 mg PO TID 7 Days Qty: 21 0RF No Action levothyroxine 25 mcg tablet 25 mcg PO DAILY aspirin 81 mg Tablet,Chewable 81 mg PO BREAKFAST Qty: 60 0RF carbidopa-levodopa 25-100 mg tablet 1 tab PO TID Primary Care Provider: Ganesh Jacoem Chi Referrals: Ganesh Jacome Chi, MD [Primary Care Provider] - Activity Restrictions/Additional Instructions: You are diagnosed with a UTI, this could be causing the changes. Make sure you eat and drink normally, if things get worse, fever chills, nausea vomiting please return Print Language: [place] Disposition Disposition: Home, Self Care
[2024-04-06 11:30] LABS: Absolute Lymphocyte Count 1.44 X10^3/uL (0.83-4.51); Absolute Neutrophil Count 4.8 X10^3/uL (2.0-7.7); Basophil# 0.06 X10^3/uL; Basophil% 0.9 % (0-1); Eosinophils% 1.4 % (0-5); Hematocrit 43.6 % (37-47); Hemoglobin 14.1 g/dL (12.0-15.0); Lymphocyte # 1.44 X10^3/ul (0.83-4.51); Lymphocyte % 20.7 % (19-41); Mean Corp Hgb Conc 32.3 g/dL (32-36); Mean Corpuscular Hgb 30.1 pg (27.0-32.0); Mean Platelet Vol. 9.8 fl (6.2-12.0); Monocyte% 7.2 % (0-10); NRBC Flagged by Analyzer 0 % (0-5); Neutrophil # 4.84 X10^3/uL (2.7-7.7); Neutrophil % 69.5 % (47-70); Platelet Count 343 K/mm3 (150-450); RBC Distribution Width CV 13.2 % (11.6-14.6); RBC Distribution Width SD 44.8 fl (35.1-43.9); Red Blood Count 4.69 M/mm3 (4.2-5.4)
[2024-04-06 11:58] LABS: Anion Gap 8 (5-15); BUN 18 mg/dL (7-18); BUN/Creat Ratio 23.5 RATIO (10-20); Calcium,Total 9.6 mg/dL (8.5-10.1); Chloride 107 mmol/L (98-107); Creatinine, Serum 0.77 mg/dL (0.55-1.02); EST Glomerular Filtration Rate 77 mL/min (>60); Est Glom Filt Rate - Afr Amer 93 mL/min (>60); Estimated Creatinine Clearance 51.61 ml/min; Glucose 115 mg/dL (74-106); Potassium 3.9 mmol/L (3.5-5.1); Sodium Level 143 mmol/L (136-145)
--- NOTE | 2024-04-06 12:27 | ED.RN ---
patients daughter states she is taking the BP cuff off because it hurts the patient. rn has tried arms and legs without success. vitals late due to this
[2024-04-06 12:28] VITALS: PULSE 68; RESP 18; O2SAT 100
[2024-04-06 12:29] VITALS: BMI 20.7
[2024-04-06 12:44] VITALS: BP 149/83
[2024-04-06 12:44] LABS: Color, Urine Straw (Yellow); Glucose, Dipstick Normal (Normal); Ketone-Dipstick Negative (Negative); Leukocyte Esterase-Dipstick 25 /ul (Negative); Nitrite-Dipstick Positive (Negative); Occult Blood-Urine 25 /ul (Negative); Protein-Dipstick 30 mg/dl (Negative); Urine Bilirubin Dipstick Negative (Negative); Urine Clarity Clear (Clear); Urine Urobilinogen Normal (Normal)
[2024-04-06 12:51] LABS: Bacteria 2+ /hpf (None Seen); Mucous, Urine 1+ /hpf (<or=2+); Red Blood Cells-Urine 0-5 SEEN /hpf (0-5); Squamous Epithelial Cells - UA 5-10 SEEN /hpf (5-10); White Blood Cells 25-50 SEEN /hpf (0-5)
[2024-04-06 13:00] VITALS: BP 154/87
[2024-04-06] MEDS: Ceftriaxone 1 GM/50 ML BAG IV (13:30)
[2024-04-06 14:00] VITALS: BP 154/78
== END 2024-04-06 14:23 | disposition home or self-care (01) ==
PROVIDERS: Nurse Practitioner; Emergency Provider Emergency Medicine; PCP Family Medicine Geriatric Medicine; Visit Provider Emergency Medicine
DX: N39.0 Urinary tract infection, site not specified (principal); G31.83 Neurocognitive disorder with Lewy bodies; F02.80 Dementia in other diseases classified elsewhere, unspecified severity, without behavioral disturbance, psychotic disturbance, mood disturbance, and anxiety; E03.9 Hypothyroidism, unspecified; Z86.73 Personal history of transient ischemic attack (TIA), and cerebral infarction without residual deficits; Z79.890 Hormone replacement therapy
CPT/HCPCS: 70450; 71045; 80048; 81001; 85025; 87077; 87086; 87088; 87186; 87631; 96365; 99283; A4216

== ENCOUNTER → 2024-06-03 | Outpatient (CLI) | payer MEDICARE, SELFPAY | END | disposition home or self-care (01) | PROVIDERS: PCP Family Medicine Geriatric Medicine; Visit Provider Family Medicine Geriatric Medicine | DX: G30.9 Alzheimer's disease, unspecified (principal); R53.83 Other fatigue; E78.5 Hyperlipidemia, unspecified; E55.9 Vitamin D deficiency, unspecified | CPT/HCPCS: 36415 ==

== ENCOUNTER → 2024-06-04 | Outpatient (CLI) | payer MEDICARE, SELFPAY ==
[2024-06-04 15:24] LABS: Absolute Neutrophil Count 4.7 X10^3/uL (2.0-7.7); Basophil# 0.05 X10^3/uL; Basophil% 0.7 % (0-1); Eosinophil# 0.12 X10^3/uL; Eosinophils% 1.6 % (0-5); Hematocrit 40.1 % (37-47); Hemoglobin 12.8 g/dL (12.0-15.0); Lymphocyte % 24.9 % (19-41); Mean Corp Hgb Conc 31.9 g/dL (32-36); Mean Corpuscular Hgb 29.9 pg (27.0-32.0); Mean Corpuscular Volume 93.7 fL (81-99); Monocyte# 0.81 X10^3/uL; Monocyte% 10.6 % (0-10); NRBC Flagged by Analyzer 0 % (0-5); Neutrophil % 61.7 % (47-70); Platelet Count 380 K/mm3 (150-450); RBC Distribution Width CV 13.2 % (11.6-14.6); RBC Distribution Width SD 45.8 fl (35.1-43.9); Red Blood Count 4.28 M/mm3 (4.2-5.4); White Blood Count 7.6 K/mm3 (4.4-11.0)
[2024-06-04 15:52] LABS: Vitamin D,25 Hydroxy 15.3 ng/mL
[2024-06-04 16:02] LABS: AST(SGOT) 15 U/L (15-37); Alanine Aminotransfer ALT/SGPT 29 U/L (13-56); Albumin, Serum 3.7 g/dL (3.2-5.0); Alkaline Phosphatase 99 U/L (45-117); Anion Gap 6 (5-15); BUN 18 mg/dL (7-18); Chloride 108 mmol/L (98-107); Cholesterol 204 mg/dL (200); Creatinine, Serum 0.72 mg/dL (0.55-1.02); EST Glomerular Filtration Rate 83 mL/min (>60); Est Glom Filt Rate - Afr Amer 100 mL/min (>60); Globulin 3.8 g/dL (2.2-4.2); Glucose 87 mg/dL (74-106); High Density Lipoprotein 88 mg/dL; Potassium 3.8 mmol/L (3.5-5.1); Protein, Total 7.5 g/dL (6.4-8.2); Sodium Level 140 mmol/L (136-145); Triglycerides 112 mg/dL; Very Low Density Lipoprotein 22 mg/dL (5-40)
== END | disposition home or self-care (01) ==
PROVIDERS: PCP Family Medicine Geriatric Medicine; Visit Provider Family Medicine Geriatric Medicine
DX: R53.83 Other fatigue (principal); E78.5 Hyperlipidemia, unspecified; E55.9 Vitamin D deficiency, unspecified
CPT/HCPCS: 80053; 80061; 82306; 84443; 85025

== ENCOUNTER → 2024-06-13 | Outpatient (CLI) | payer MEDICARE, SELFPAY | END | disposition home or self-care (01) | LOC: LABSPEC 13:53 | PROVIDERS: PCP Family Medicine Geriatric Medicine; Referring Provider Family Medicine Geriatric Medicine; Visit Provider Family Medicine Geriatric Medicine | DX: N39.0 Urinary tract infection, site not specified (principal) | CPT/HCPCS: 87077; 87086; 87088; 87186 ==

== ENCOUNTER → 2024-08-06 | Outpatient (CLI) | payer MEDICARE, SELFPAY | END | disposition home or self-care (01) | PROVIDERS: PCP Family Medicine Geriatric Medicine; Visit Provider Family Medicine Geriatric Medicine | DX: N39.0 Urinary tract infection, site not specified (principal) | CPT/HCPCS: 87086; 87088 ==

== ENCOUNTER 2024-08-26 13:03 | Emergency (ER) | payer MEDICARE, SELFPAY ==
[2024-08-26 13:11] VITALS: BP 146/83; PULSE 89; RESP 13; TEMP 36.4; O2SAT 97; BMI 22.0
--- NOTE | 2024-08-26 13:22 | CT_ITS ---
EXAM: NONCONTRAST CT SCAN OF THE HEAD CLINICAL HISTORY: AMS, Alzheimer's, dementia COMPARISON: April 06, 2024 TECHNIQUE: Serial axial series through the head were obtained without contrast. 2-D coronal and sagittal reformats were then obtained. FINDINGS: Brain: There is moderate generalized atrophy. There is low-density in the deep white matter of the right and left with chronic ischemic change, similar to the prior. There is no acute large territorial infarct, intracranial hemorrhage, midline shift or mass effect. The sella and pineal gland regions appear unremarkable. There is no evidence of cerebellar tonsillar herniation. Ventricles: There is no acute hydrocephalus. Basilar cisterns are patent. Paranasal sinuses: There is mucosal thickening and partial opacification of the right maxillary sinus in a portion of the right ethmoid air cells. [place]astoid air cells: Well-aerated. Calvarium: The bony calvarium is intact. Orbits: The bilateral globes are symmetric, without retrobulbar compressive mass lesion or hemorrhage. Miscellaneous: CT/Brain/Head without Contrast IMPRESSION: There is moderate generalized atrophy. There is low-density in the deep white matter of the right and left with chroni c ischemic change, similar to the prior. There is mucosal thickening and partial opacification of the right maxillary si nus in a portion of the right ethmoid air cells. There is no significant interval change. Reading Location: [facility]
--- NOTE | 2024-08-26 13:23 | EKG12_ITS ---
Test Reason : PLACEMENT Blood Pressure : */* mmHG Vent. Rate : 80 BPM Atrial Rate : 80 BPM P-R Int : 166 ms QRS Dur : 80 ms QT Int : 390 ms P-R-T Axes : 55 -30 79 degrees QTcB Int : 449 ms Normal sinus rhythm Left axis deviation Nonspecific ST and T wave abnormality Abnormal ECG Confirmed by JEAN-PIERRE IVORY, YING ([id number]), newspaper managing editor MONICA DALEY ([id number]) on 08/27/2024 1:30:55 PM Referred By: Confirmed By: YING MOREJON MD
[2024-08-26 13:53] LABS: Absolute Lymphocyte Count 1.54 X10^3/uL (0.83-4.51); Absolute Neutrophil Count 4.2 X10^3/uL (2.0-7.7); Basophil# 0.04 X10^3/uL; Basophil% 0.6 % (0-1); Eosinophil# 0.09 X10^3/uL; Eosinophils% 1.4 % (0-5); Hematocrit 41.7 % (37-47); Hemoglobin 13.7 g/dL (12.0-15.0); Lymphocyte # 1.54 X10^3/ul (0.83-4.51); Lymphocyte % 23.5 % (19-41); Mean Corp Hgb Conc 32.9 g/dL (32-36); Mean Corpuscular Volume 91.2 fL (81-99); Mean Platelet Vol. 9.4 fl (6.2-12.0); Monocyte# 0.69 X10^3/uL; Monocyte% 10.6 % (0-10); NRBC Flagged by Analyzer 0 % (0-5); Neutrophil # 4.16 X10^3/uL (2.7-7.7); Neutrophil % 63.6 % (47-70); Platelet Count 316 K/mm3 (150-450); RBC Distribution Width CV 13.2 % (11.6-14.6); RBC Distribution Width SD 44.3 fl (35.1-43.9); Red Blood Count 4.57 M/mm3 (4.2-5.4); White Blood Count 6.5 K/mm3 (4.4-11.0)
--- NOTE | 2024-08-26 13:55 | RAD_ITS ---
PROCEDURE: CHEST 1 VIEW (PORTABLE) 08/26/2024 REASON FOR EXAM: HYPERTENSION TECHNIQUE: Frontal view of the chest. COMPARISON: April 06, 2024 FINDINGS: Heart size is upper normal. Mediastinal configuration is within normal limits. There is blunting of the costophrenic angle on the left consistent with a small effusion, similar to the prior. There is no pneumothorax. There is no visible acute bony abnormality. Aortic calcifications are visible. RAD/Chest 1 View (Portable) IMPRESSION: There is a small left pleural effusion, similar to the prior. Reading Location: [facility]
--- NOTE | 2024-08-26 14:02 | ED.RN ---
Patient's daughter given update by this RN.
[2024-08-26 14:17] LABS: Alcohol, Blood (Medical)-Serum < 10.1 mg/dL (<=10.0)
[2024-08-26 14:18] LABS: AST(SGOT) 21 U/L (<=31); Alanine Aminotransfer ALT/SGPT 7 U/L (<=34); Albumin, Serum 4.1 g/dL (3.4-4.8); Alkaline Phosphatase 94 U/L (35-104); Anion Gap 12 (5-15); BUN 22 mg/dL (4-19); BUN/Creat Ratio 23.7 RATIO (10-20); Bilirubin, Direct 0.15 mg/dL (0.00-0.30); Calcium,Total 9.6 mg/dL (7.6-11.0); Carbon Dioxide 21.6 mmol/L (21.0-32.0); Chloride 106 mmol/L (98-108); Creatinine, Serum 0.93 mg/dL (0.70-1.20); EST Glomerular Filtration Rate 62 (>60); Estimated Creatinine Clearance 44.41 ml/min (50-250); Globulin 2.7 g/dL (2.2-4.2); Glucose 95 mg/dL (70-99); Lipase 70 U/L (13-75); Potassium 4.2 mmol/L (3.3-5.1); Protein, Total 6.8 g/dL (5.9-8.4); Sodium Level 140 mmol/L (133-145); Total Bilirubin 0.33 mg/dL (0.00-1.30)
[2024-08-26 14:21] LABS: Bacteria 0 SEEN /hpf (None Seen); Mucous, Urine 0 SEEN /hpf (<or=2+)
[2024-08-26 14:27] LABS: Color, Urine Yellow (Yellow); Glucose, Dipstick Normal (Normal); Ketone-Dipstick Negative (Negative); Leukocyte Esterase-Dipstick 25 /ul (Negative); Nitrite-Dipstick Negative (Negative); Occult Blood-Urine 10 /ul (Negative); Protein-Dipstick Negative (Negative); Specific Gravity, Urine 1.015 (1.002-1.030); Urine Bilirubin Dipstick Negative (Negative); Urine Clarity Clear (Clear); Urine Urobilinogen Normal (Normal)
[2024-08-26 14:33] VITALS: BP 109/71; PULSE 77; RESP 15
--- NOTE | 2024-08-26 14:39 | EX.ED.VIS.PS ---
HPI HPI - Psych History of Present Illness Chief Complaint: Mental Health Informant: patient, EMS and mental health staff Narrative Narrative: 79-year-old female presenting to the emergency room with altered mental status. Patient has a pink slip from community crisis. Patient has a history of Lewy body dementia and has been living at home with her daughter. Crisis notes that the patient has been decompensating over a period of weeks. They note increasing confusion. Patient believes that her mom and dad are still alive and has been asking them to come get her. She has been reportedly screaming out of the window of her home. She will occasionally try to leave the home and even attempt to drive a vehicle. She states repeatedly that she wants to go home and live with her sister whom she has not lived with for decades. At times she has been seen speaking to people who were not there. Crisis reports that the daughter is very emotionally distraught over the decompensation. Crisis is recommended the patient to be transferred to [facility] psychiatric facility for stabilization. [facility] Medical History Alzheimer disease Lewy body dementia Weakness Fever COVID-19 History of CVA (cerebrovascular accident) Hypothyroid Skin cancer Medical History no medical history Home Medications ?Medication ?Instructions ?Recorded ?Last Taken ?Type levothyroxine 25 mcg tablet 25 mcg PO DAILY hypothyroid 08/30/22 04/23/23 08:00 History 25 mcg aspirin 81 mg chewable tablet 81 mg PO BREAKFAST #60 tabs 08/31/22 04/23/23 08:00 Rx 81 mg carbidopa 25 mg-levodopa 100 mg 1 tab PO TID 04/06/24 Unknown History tablet clonazepam 0.5 mg tablet 0.25 mg PO TID anxiety 08/26/24 Unknown History memantine 5 mg tablet 5 mg PO BID 08/26/24 Unknown History olanzapine 2.5 mg tablet 1.25 mg PO DAILY PRN anxiety 08/26/24 Unknown History tolterodine 1 mg tablet 1 mg PO QHS 08/26/24 Unknown History Allergy/AdvReac Type Severity Reaction Status Date / Time sulfamethoxazole (From AdvReac Vomiting Verified 08/26/24 13:16 Bactrim) trimethoprim (From Bactrim) AdvReac Vomiting Verified 08/26/24 13:16 Family History Mother Abdominal aortic aneurysm Heart disease Uncle Abdominal aortic aneurysm Brother Abdominal aortic aneurysm Father Leukemia 59 secondary to Leukemia. Surgical History skin cancer removal History of rotator cuff surgery Surgical History no surgical history Social History Smoking Status: Never smoker alcohol intake: never substance use type: does not use caffeine: Yes what type of physical activity do you participate in: walking seatbelt use: always do you feel safe at home: Yes additional social history: - retired ROS ROS ED Review of Systems ROS Unobtainable: due to mental status EXAM Physical Exam Const Vital Signs: 08/26/24 13:11 08/26/24 14:33 Temperature 97.6 F L Temperature Source Axillary Pulse Rate 89 77 Respiratory Rate 13 15 Blood Pressure 146/83 H 109/71 Blood Pressure Mean 104 83 Pulse Ox 97 Oxygen Delivery Method Room Air Room Air Positive well nourished and well developed General Appearance ED: well developed and NAD HEENT Reports normocephalic, head/scalp atraumatic and moist mucous membranes Eyes PERRL and EOMs intact bilaterally Neck no lymphadenopathy, supple and no JVD Resp normal respiratory effort and clear to auscultation bilaterally Cardio regular rate, regular rhythm and no murmurs GI normal to inspection, nondistended, normoactive bowel sounds and non-tender Palpation: soft Back/Spine no CVA tenderness and normal ROM Extremity normal to inspection General Extremety ED: Negative for edema General Extremity: Negative for edema Neuro CN's II-XII intact bilaterally Neuro Narrative: Patient knows the year. She is awake and conversant. She tells me as I walk into the room I do not need any more needles in this room Sensorium / Orientation: alert Motor Exam: strength 5/5 throughout Psych Psych Narrative: Patient is conversant. She is occasionally speaking to people are not there. She is not suicidal or homicidal Mood & Affect: Negative for depressed or tearful Skin no rashes or lesions noted and no wounds MDM MDM MDM Narrative Medical decision making narrative: Differential diagnosis includes but not limited to dementia UTI stroke electrolyte abnormalities renal dysfunction liver dysfunction schizophrenia psychosis Basic blood work was obtained shows a white count 6.5 hemoglobin 13.7 platelet count 316. BMP is within normal limits. Lipase is 70 liver enzymes are normal. Urinalysis shows no overt infection. Alcohol level is negative. CT of the brain does not demonstrate any acute findings. My independent trepidation of the chest x-ray is no acute finding small left pleural effusion which is unchanged. EKG is normal sinus rhythm at a rate of 80. Urine toxicology is negative. Initial troponin is 18 and second troponin is 22. At this point Tyrell vallejo patient is medically cleared for psychiatric assessment. I filled out a pink slip. I think that she would want to fill from [facility] psychiatric stabilization. History & Record Review Discussion w/independent historian: EMS personnel, Patient and Other (Community Crisis) Additional record(s) reviewed:: Prior ED visit and Prior labs Lab Data Attestation: I reviewed the patient's lab results. Labs: Laboratory Results - last 24 hr 08/26/24 08/26/24 08/26/24 13:41 14:17 16:00 WBC 6.5 RBC 4.57 Hgb 13.7 Hct 41.7 MCV 91.2 MCH 30.0 MCHC 32.9 RDW Std Deviation 44.3 H RDW Coeff of Rajesh 13.2 Plt Count 316 MPV 9.4 Immature Gran % (Auto) 0.300 Neut % (Auto) 63.6 Lymph % (Auto) 23.5 Howell % (Auto) 10.6 H Eos % (Auto) 1.4 Baso % (Auto) 0.6 Absolute Neuts (auto) 4.2 Absolute Lymphs (auto) 1.54 Nucleated RBC % 0 Sodium 140 Potassium 4.2 Chloride 106 Carbon Dioxide 21.6 Anion Gap 12 BUN 22 H Creatinine 0.93 Estim Creat Clear Calc 44.41 L Est GFR (MDRD) Non-Af 62 BUN/Creatinine Ratio 23.7 H Glucose 95 Calcium 9.6 Total Bilirubin 0.33 Direct Bilirubin 0.15 AST 21 ALT 7 Alkaline Phosphatase 94 Troponin T High Sens 18 H Troponin T Hi Sens 2 Hr 22 H Total Protein 6.8 Albumin 4.1 Globulin 2.7 Lipase 70 TSH 2.670 Urine Color Yellow Urine Clarity Clear Urine pH 6.0 Ur Specific [place] 1.015 Urine Protein Negative Urine Glucose (UA) Normal Urine Ketones Negative Urine Occult Blood 10 H Urine Nitrite Negative Urine Bilirubin Negative Urine Urobilinogen Normal Ur Leukocyte Esterase 25 H Urine RBC 0-5 SEEN Urine WBC 0-5 SEEN Ur Squamous Epith Cells 0-5 SEEN Urine Bacteria 0 SEEN Urine Mucus 0 SEEN Urine Opiates Screen NEGATIVE U Buprenorphine Qual NEGATIVE Ur Oxycodone Screen NEGATIVE Urine Methadone Screen NEGATIVE Urine Fentanyl Screen NEGATIVE Ur Barbiturates Screen NEGATIVE Ur Phencyclidine Scrn NEGATIVE Ur Amphetamines Screen NEGATIVE U Benzodiazepines Scrn NEGATIVE Urine Cocaine Screen NEGATIVE U Cannabinoids Screen NEGATIVE Ethyl Alcohol < 10.1 Radiography Diagnostic Testing: Clinical Impression(s) from Imaging Studies Brain CT 08/26/24 13:22 IMPRESSION: There is moderate generalized atrophy. There is low-density in the deep white matter of the right and left with chronic ischemic change, similar to the prior. There is mucosal thickening and partial opacification of the right maxillary sinus in a portion of the right ethmoid air cells. There is no significant interval change. Reading Location: [facility] Chest X-Ray 08/26/24 13:55 IMPRESSION: There is a small left pleural effusion, similar to the prior. Reading Location: [facility] EKG Initial EKG: Attestation: I personally reviewed and interpreted this EKG as follows: Comments: Normal sinus rhythm ventricular rate of 80 bpm Management Discussion w/another healthcare provider: tie up worker/Case management and Behavioral health Discharge Plan Triage Chief Complaint: Mental Health ED Provider: Tacho Saldivar Dx/Rx/DC Orders Clinical Impression: Lewy body dementia, Dementia with behavioral disturbance Prescriptions: No Action levothyroxine 25 mcg tablet 25 mcg PO DAILY aspirin 81 mg Tablet,Chewable 81 mg PO BREAKFAST Qty: 60 0RF carbidopa-levodopa 25-100 mg tablet 1 tab PO TID olanzapine 2.5 mg tablet 1.25 mg PO DAILY PRN (Reason: anxiety) memantine 5 mg tablet 5 mg PO BID tolterodine 1 mg tablet 1 mg PO QHS clonazepam 0.5 mg tablet 0.25 mg PO TID Primary Care Provider: Ganesh Jacome Chi Referrals: Ganesh Jacome Chi, MD [Primary Care Provider] - Print Language: Citizen Of [place] Disposition Disposition: Psychiatric Hospital or Unit
[2024-08-26 14:44] LABS: Squamous Epithelial Cells - UA 0-5 SEEN /hpf (5-10); White Blood Cells 0-5 SEEN /hpf (0-5)
[2024-08-26 14:45] LABS: Red Blood Cells-Urine 0-5 SEEN /hpf (0-5)
[2024-08-26 14:49] LABS: Amphetamine Urine NEGATIVE (<1000 ng/mL); Barbiturate Urine NEGATIVE (< 200 ng/mL); Benzodiazepine Urine NEGATIVE (< 200 ng/mL); Buprenorphine Urine NEGATIVE (< 200 ng/mL); Cocaine Urine NEGATIVE (< 300 ng/mL); Fentanyl, Urine NEGATIVE; Methadone Urine NEGATIVE (< 300 ng/mL); Opiates Urine NEGATIVE (< 300 ng/mL); Oxycodone, Urine NEGATIVE (< 100 ng/mL); PCP Urine NEGATIVE (< 25 ng/mL); THC Urine NEGATIVE (< 50 ng/mL)
[2024-08-26 14:57] LABS: Troponin T High Sensitivity 18 ng/L (<=14)
[2024-08-26 16:28] LABS: Troponin T High Sens 2 HR 22 ng/L (<=14)
[2024-08-26 17:24] VITALS: BP 119/65; PULSE 77; RESP 14; TEMP 36.6; O2SAT 96
--- NOTE | 2024-08-26 18:20 | CM.ED ---
Social Work SW introduced self to daughter and explained role in hospital. SW updated daughter on how process of psychiatric admission happens and length of time to expect before patient would be able to be transferred. Daughter thankful for infomation, no further needs identified at this time. Plan: Inpatient psychiatric admission per crisis pending acceptance. Priscilla Garcia, WASTE HAND, CONVEYOR TECHNICIAN
--- NOTE | 2024-08-26 18:43 | PCA ---
REFERRALS OUT TO [facility] FOR [facility]CH AND [facility] PER COUNSELING CENTER @ [id number]
--- NOTE | 2024-08-26 19:02 | ED.RN ---
Lyndon called for more info, will review case
--- NOTE | 2024-08-26 20:12 | ED.RN ---
Attempted to call report at [facility], no after after being on hold for minutes
[2024-08-26 22:08] VITALS: BP 119/65; PULSE 77; RESP 14; TEMP 36.6; O2SAT 96
--- NOTE | 2024-08-26 22:34 | ED.RN ---
Attempted to call report again, nurse currently unavailable. This RN requested facility to call back when ready for report and provided number for ED.
[2024-08-26] MEDS: clonazePAM 0.5 MG Tablet 0.25 MG PO (22:50)
[2024-08-26] MEDS: Memantine Hydrochloride 5 MG Tablet PO (22:50)
--- NOTE | 2024-08-26 23:13 | ED.RN ---
Report gave to Sherlyn SIFUENTES at [facility], questions/concerns answered.
== END 2024-08-26 23:46 ==
PROVIDERS: Emergency Provider Emergency Medicine; PCP Family Medicine Geriatric Medicine; Visit Provider Emergency Medicine
DX: G31.83 Neurocognitive disorder with Lewy bodies (principal); F02.818 Dementia in other diseases classified elsewhere, unspecified severity, with other behavioral disturbance; Z86.73 Personal history of transient ischemic attack (TIA), and cerebral infarction without residual deficits; Z85.828 Personal history of other malignant neoplasm of skin; E03.9 Hypothyroidism, unspecified; Z79.890 Hormone replacement therapy; Z79.899 Other long term (current) drug therapy
CPT/HCPCS: 36415; 70450; 71045; 80048; 80076; 80307; 81001; 82077; 83690; 84443; 84484; 85025; 93005; 99285

== ENCOUNTER 2024-09-17 13:56 | Outpatient (RCR) | payer MEDICARE, SELFPAY ==
--- NOTE | 2024-09-17 16:15 | HP.PTEVAL_ITS ---
Patient's Visit Information Visit Information Visit Information: BOSTON NULL is a 79 year old F referred to Physical Therapy by Dr. Ganesh Jacome MD with a diagnosis of Falls/PD/Lewy body dementia. Date of Evaluation: 09/17/24 Physical Therapist: CHRISTAL Murdock Visit Plan Frequency: 1-2x /Week Duration: 3 Months Plan: 1-2X/ week for 8-12 weeks for gait training with rollator, balance activities, functional transfers such as sit to stands, step ups, bed mobility, and possible floor to standing transfers with a chair etc with HEP. Pt needs and AD and will be getting her rollator delieverd on Sunday Subjective Subjective: They think that she might have Alzheimer's, vascular dementia as well as Lewy Body and PD. She is on meds for her memory and daughter coltks that this is helping. She is getting an MRI in October 06 and then possibly starting Alzheimer's meds then. The patient has declined. She has had 3 falls in the last 6 months. She had her socks on twice and slipped and fell. Another time she fell in the bathroom when got out of the shower. She has grab bars but they are not sturdy. The patient does not move around a lot of walking at home. She does the dishes some times. They ordered a rollator that comes on Fridays. It is hard for her to sit to stand now. Daughter feels that it is muscle tone. She has bars now around the toilet help her up but it is still hard for her. When she is in bed it is hard for her to move around. The daughter does not leave her home very often. Daughter is afraid that she is not picking her up from the floor right when she stands up or from a chair. Objective Objective: Gait: walks with flexed trunk and small shuffled steps with min to mod A with some scissoring and decreased heel to toe gait pattern. I did give the pt a rollator and she was able to walk with more confidence with bigger steps. She did need verbal cues for more upright posture and more heel to toe gait pattern. MMT R hip flex 12 and L 11.2 R knee ext 17.9 and L 19.3 R knee flex 15,2 and L 12.2 R shoulder 8.1 and L 7.1 R shoulder 9.5 and L 10.3 Sit to stand: max verbal cues to go from sitting to standing with mod A. Pt likes to have her weight on her heels and needs tactile cues to weight shift FW. FGA 4 Balance/Special Test Scores Functional Gait Assessment Score: 4 % Disability: 86.6700 Lower Extremity Functional Score: 7 Goals Goal 1:: I HEP Goal Time Frame: 8-12 Weeks Goal 2:: Be able to walk 1 lap around dept without catching her toe with SBA Goal Time Frame: 8-12 Weeks Goal 3:: Be able to sit to stand with UE support X 5 times with CGA and verbal cues Goal Time Frame: 8-12 Weeks Goal 4:: Be able to increase UE and LE strength (at the time of the eval: MMT R hip flex 12 and L 11.2 R knee ext 17.9 and L 19.3 R knee flex 15,2 and L 12.2 R shoulder 8.1 and L 7.1 R shoulder 9.5 and L 10.3) Goal Time Frame: 8-12 Weeks Rehabilitation Potential Rehabilitation Potential: Fair Anticipated Interventions Patient/Client Instruction: Educate patient on: Condition and Plan of Care For the Purpose of:: To improve nutrient delivery to tissue, To improve muscle performance and motor function, To improve ability to perform ADL's, To increase tolerance to activity/condition/position, To improve performance and independence with ADL's, To decrease level of supervision to perform tasks, To improve ability of physical actions for home/community/work/leisure, To improve gait and locomotor functions, To improve health of tissue, To improve endurance, To improve balance and To improve safety with gait Therapeutic Exercise to Include: Strength training, Endurance training, Balance training, Body mechanics, Postural training, Flexibilty training, Gait and locomotor training, Neuromotor development, Active ROM and Dynamic Lumbar Stabilization For the Purpose of:: To improve muscle performance and motor function, To improve ability to perform ADL's, To increase tolerance to activity/condition/position, To improve performance and independence with ADL's, To decrease level of supervision to perform tasks, To improve ability of physical actions for home/community/work/leisure, To improve gait and locomotor functions, To improve health of tissue, To decrease soft tissue restriction, To increase flexibility/ROM, To improve endurance, To improve balance and To improve safety with gait Functional Training to Include: Gait training For the Purpose of:: To improve gait and locomotor functions Text: Thank you for the opportunity to evaluate your patient. For Medicare and Medicare HMO plans, please review the plan of care and approve it. It will need to be FAXED BACK to us at [phone] for Medicare purposes. For Medicare only, by signing this I certify the plan of care. Please let me know if there are questions or concerns regarding this plan of care. Physician Signature: Date:
--- NOTE | 2025-01-27 08:56 | HP.PTDCNRP_ITS ---
Patient Information Patient Information: BOSTON NULL was seen in my office for initial evaluation on 09/17/24. The following Plan of Care was established for this patient: POC Established Initial Frequency: 1-2x /Week Initial Duration: 3 Months Anticipated Interventions Patient/Client Instruction: Educate patient on: Condition and Plan of Care For the Purpose of:: To improve nutrient delivery to tissue, To improve muscle performance and motor function, To improve ability to perform ADL's, To increase tolerance to activity/condition/position, To improve performance and i ndependence with ADL's, To decrease level of supervision to perform tasks, To improve ability of physical actions for home/community/work/leisure, To improve gait and locomotor functions, To improve health of tissue, To improve endurance, To improve balance and To improve safety with gait Therapeutic Exercise to Include: Strength training, Endurance training, Balance training, Body mechanics, Postural training, Flexibilty training, Gait and locomotor training, Neuromotor development, Active ROM and Dynamic Lumbar Stabilization For the Purpose of:: To improve muscle performance and motor function, To improve ability to perform ADL's, To increase tolerance to activity/condition/position, To improve performance and independence with ADL's, To decrease level of supervision to perform tasks, To improve ability of physical actions for home/community/work/leisure, To improve gait and locomotor functions, To improve health of tissue, To decrease soft tissue restriction, To increase flexibility/ROM, To improve endurance, To improve balance and To improve safety with gait Functional Training to Include: Gait training For the Purpose of:: To improve gait and locomotor functions Last Seen Last Seen: This patient was last seen in our office 09/17/24. Pertinent comments regarding their Physical therapy will appear below: [facility] PT At this point I will be discontinuing this patient from physical therapy. I w ould be happy to see this patient again in the future if found appropriate by the physician. Thank you! Lisa Luevano, CHRISTAL Balance/Gait/Functional tests Balance/Special Test Scores Functional Gait Assessment Score: 4 % Disability: 86.6700 Lower Extremity Functional Score: 7
== END 2024-09-17 19:00 | disposition home or self-care (01) ==
LOC: PT 13:56
PROVIDERS: PCP Family Medicine Geriatric Medicine; Visit Provider Family Medicine Geriatric Medicine
DX: G20.A1 Parkinson's disease without dyskinesia, without mention of fluctuations (principal); G31.83 Neurocognitive disorder with Lewy bodies; R29.6 Repeated falls
CPT/HCPCS: 97162

== ENCOUNTER 2024-09-23 11:20 | Emergency (ER) | payer MEDICARE, SELFPAY ==
[2024-09-23 11:21] VITALS: BP 130/92; PULSE 80; RESP 18; TEMP 36.7; O2SAT 98; BMI 22.5
--- NOTE | 2024-09-23 11:43 | EKG12_ITS ---
Test Reason : WEAKNESS Blood Pressure : */* mmHG Vent. Rate : 67 BPM Atrial Rate : 67 BPM P-R Int : 180 ms QRS Dur : 80 ms QT Int : 444 ms P-R-T Axes : 47 -24 82 degrees QTcB Int : 469 ms Poor data quality, interpretation may be adversely affected Normal sinus rhythm with sinus arrhythmia Nonspecific ST and T wave abnormality Abnormal ECG Confirmed by Miles Todd ([id number]), television news video editor MAGDA RODRIGUEZ ([id number]) on 09/29/2024 11:25:19 AM Referred By: Confirmed By: Miles Todd
--- NOTE | 2024-09-23 11:45 | EX.ED.DYSGE1 ---
HPI History of Present Illness Chief Complaint: Weakness Informant: patient and family Narrative Narrative: 79-year-old female with a history of Parkinson's and Lewy body dementia has had increase in her Parkinson's-like movement disorder in the past 4 days according to daughter, with whom she lives and takes care of her. She states in the past day or so she has been extremely weak and this morning she slept in which is very unlike her, and was unable to get up even with assistance from daughter due to being extremely weak which also is very unlike her. She tried to get her into see the doctor but she was unable to get her into her car because she cannot get her up, so her doctor recommended she be brought to the emergency department by EMS which she did. Patient has no focal complaints right now except for some nausea. The daughter states that on occasion when eating and drinking she coughs and appears to choke a little bit, but nothing major. She has had no apparent dyspnea recently. She did notice that she was flushed in the face this morning. [facility] Medical History Alzheimer disease Lewy body dementia Weakness Fever COVID-19 History of CVA (cerebrovascular accident) Hypothyroid Skin cancer Home Medications ?Medication ?Instructions ?Recorded ?Last Taken ?Type levothyroxine 25 mcg tablet 25 mcg PO DAILY hypothyroid 08/30/22 04/23/23 08:00 History 25 mcg aspirin 81 mg chewable tablet 81 mg PO BREAKFAST #60 tabs 08/31/22 04/23/23 08:00 Rx 81 mg carbidopa 25 mg-levodopa 100 mg 2 tab PO TID 04/06/24 09/23/24 History tablet clonazepam 0.5 mg tablet 0.25 mg PO TID anxiety 08/26/24 Unknown History tolterodine 1 mg tablet 1 mg PO QHS 08/26/24 09/22/24 History levetiracetam 250 mg tablet 250 mg PO BID 09/23/24 Unknown History memantine 10 mg tablet 10 mg PO BID 09/23/24 09/22/24 History olanzapine 7.5 mg tablet 7.5 mg PO QHS 09/23/24 Unknown History tramadol 50 mg tablet 50 mg PO Q12H PRN PRN pain 09/23/24 Unknown History Allergy/AdvReac Type Severity Reaction Status Date / Time sulfamethoxazole (From AdvReac Vomiting Verified 09/23/24 11:25 Bactrim) trimethoprim (From Bactrim) AdvReac Vomiting Verified 09/23/24 11:25 Family History Mother Abdominal aortic aneurysm Heart disease Uncle Abdominal aortic aneurysm Brother Abdominal aortic aneurysm Father Leukemia 59 secondary to Leukemia. Surgical History skin cancer removal History of rotator cuff surgery Social History household members: family and children housing: house Smoking Status: Never smoker alcohol intake: never substance use type: does not use caffeine: Yes what type of physical activity do you participate in: walking seatbelt use: always do you feel safe at home: Yes additional social history: - retired ROS ROS ED Review of Systems ROS Unobtainable: due to mental condition and other Details: Limited to ROS below Constitutional Constitutional ED: Denies chills or fever(s) Eyes Eyes: Denies change in vision or diplopia ENT ENT ED: Denies rhinorrhea or sore throat Cardiovascular Cardiovascular: Denies chest pain or palpitations Respiratory/Chest Respiratory/Chest: Denies cough or dyspnea Gastrointestinal Gastrointestinal: Reports nausea; Denies abdominal pain or vomiting Genitourinary Genitourinary ED: Denies dysuria or hematuria Musculoskeletal Musculoskeletal: Denies back pain or neck pain Neurologic Neurologic: Denies headache(s) EXAM Physical Exam Const Vital Signs: 09/23/24 11:21 09/23/24 11:25 09/23/24 12:20 Temperature 98.1 F Temperature Source Oral Pulse Rate 80 80 Respiratory Rate 18 18 Respiratory Effort Normal Non-Labored Blood Pressure 130/92 H 148/76 H Blood Pressure Mean 104 100 Pulse Ox 98 98 Oxygen Delivery Method Room Air 09/23/24 13:00 09/23/24 14:00 Temperature Temperature Source Pulse Rate 71 78 Respiratory Rate 16 16 Respiratory Effort Blood Pressure 154/132 H 143/78 H Blood Pressure Mean 139 99 Pulse Ox 98 98 Oxygen Delivery Method Positive well nourished and well developed General Appearance ED: well developed and NAD HEENT Reports moist mucous membranes HEENT Narrative: Mild bilateral cheek facial flushing, no tenderness or signs of a rash normocephalic and atraumatic Eyes PERRL and EOMs intact bilaterally Neck full ROM and supple Chest Wall inspection of chest normal and palpation of chest normal Resp normal respiratory effort and clear to auscultation bilaterally Cardio regular rate and regular rhythm GI non-tender and non-distended Auscultation: normoactive bowel sounds Palpation: soft Extremity normal to inspection General Extremety ED: Yes edema; Negative for pulses abnormal or tenderness General Extremity: edema bilateral lower extremity Details: mild; Negative for pulses abnormal Neuro CN's II-XII intact bilaterally and no sensory deficits noted Neuro Narrative: Moves all four extremities symmetrically, generally weak Sensorium / Orientation: awake, alert and orientation impaired Motor Exam: general weakness Psych mental status grossly normal Skin no rashes or lesions noted and no wounds MDM MDM MDM Narrative Medical decision making narrative: Patient generally weak with a nonfocal neurologic exam and the rest of her exam is fairly benign as well. Her vital signs are normal. We did a workup including metabolic, infectious, cardiopulmonary, as well as a CT of the head. Daughter is indicating that her Parkinson symptoms have been much worse recently, the workup is essentially unremarkable. Chest x-ray 1 view on my interpretation negative for pneumonia, CT of the head on my interpretation negative for any acute, radiology in agreement of both of these. The rest of her labs are unremarkable and her urine shows no acute infection. Had nurses try to get her up, she was actually able to stand and ambulate with lots of assistance and had a shuffling gait, but was able. She walks with a rollator at baseline at home when she is on her own. I spoke with daughter, she has not missed any of her carbidopa-levodopa, but getting 2 doses per day and trying to get a third dose in but for the most part does not/cannot. I discussed with her PCP, at this point he advises getting a third dose in her daily, and following up soon as possible in the office for reevaluation. Discussed at length with daughter, she is comfortable with this plan and taking her home. Lab Data Attestation: I reviewed the patient's lab results. Labs: Laboratory Results - last 24 hr 09/23/24 09/23/24 11:34 12:00 WBC 6.7 RBC 4.20 Hgb 12.5 Hct 38.3 MCV 91.2 MCH 29.8 MCHC 32.6 RDW Std Deviation 45.7 H RDW Coeff of Rajesh 13.5 Plt Count 247 MPV 9.9 Immature Gran % (Auto) 0.300 Neut % (Auto) 71.8 H Lymph % (Auto) 11.2 L [place] % (Auto) 10.2 H Eos % (Auto) 6.1 H Baso % (Auto) 0.4 Absolute Neuts (auto) 4.8 Absolute Lymphs (auto) 0.75 L Nucleated RBC % 0 Sodium 140 Potassium 3.7 Chloride 107 Carbon Dioxide 21.9 Anion Gap 12 BUN 17 Creatinine 0.73 Estim Creat Clear Calc 51.63 Est GFR (MDRD) Non-Af 83 BUN/Creatinine Ratio 23.7 H Glucose 109 H Lactic Acid < 1.0 Calcium 9.0 Total Bilirubin 0.36 AST 24 ALT 5 Alkaline Phosphatase 97 Total Protein 6.4 Albumin 3.7 Globulin 2.7 Albumin/Globulin Ratio 1.4 Urine Color Yellow Urine Clarity Clear Urine pH 7.0 Ur Specific [place] 1.010 Urine Protein 15 H Urine Glucose (UA) Normal Urine Ketones Negative Urine Occult Blood 25 H Urine Nitrite Negative Urine Bilirubin Negative Urine Urobilinogen Normal Ur Leukocyte Esterase Negative Urine RBC 0-5 SEEN Urine WBC 0-5 SEEN Ur Squamous Epith Cells 0-5 SEEN Urine Bacteria 0 SEEN Urine Mucus 0 SEEN Radiography Diagnostic Testing: Clinical Impression(s) from Imaging Studies Chest X-Ray 09/23/24 11:50 IMPRESSION: Hyperinflation. Reading Location: [facility] 09/23/24 13:37 IMPRESSION: CHRONIC CHANGES. NO ACUTE FINDINGS. Reading Location: [facility] Rhythm Strip Rhythm Strip: Sinus Rhythm Rate: 67 Ectopy: None EKG Initial EKG: Attestation: I personally reviewed and interpreted this EKG as follows: Interpretation: Sinus Rhythm, No Acute Injury Pattern and Non-Specific ST Changes (lat) Prior EKG tracings: available for review Prior: Unchanged Management Discussion w/another healthcare provider: PCP Discharge Plan Triage Chief Complaint: Weakness ED Provider: Kenneth Baez Dx/Rx/DC Orders Clinical Impression: Debility, Parkinson's disease, Lewy body dementia Instructions: Parkinson Disease Tx Prescriptions: No Action levothyroxine 25 mcg tablet 25 mcg PO DAILY aspirin 81 mg Tablet,Chewable 81 mg PO BREAKFAST Qty: 60 0RF carbidopa-levodopa 25-100 mg tablet 2 tab PO TID tolterodine 1 mg tablet 1 mg PO QHS clonazepam 0.5 mg tablet 0.25 mg PO TID olanzapine 7.5 mg tablet 7.5 mg PO QHS levetiracetam 250 mg tablet 250 mg PO BID memantine 10 mg tablet 10 mg PO BID tramadol 50 mg tablet 50 mg PO Q12H PRN PRN (Reason: pain) Primary Care Provider: Ganesh Jacome Chi Referrals: Ganesh Jacome Chi, MD [Primary Care Provider] - As soon as possible Activity Restrictions/Additional Instructions: For now try to consistently get third dose of carbidopa-levodopa in her, and follow-up as soon as possible in the office. Print Language: Luxembourger Disposition Disposition: Home, Self Care
--- NOTE | 2024-09-23 11:50 | RAD_ITS ---
PROCEDURE: CHEST 1 VIEW (PORTABLE) 09/23/2024 REASON FOR EXAM: WEAKNESS, OCC COUGHS W/ EATING/DRINKING TECHNIQUE: Frontal view of the chest. COMPARISON: Prior study dated August 26, 2024. FINDINGS: Hardware: EKG electrodes are seen. Heart: The heart size is normal. Lungs: Hyperinflation. The lungs are clear. Stable blunting of the left costophrenic angle. Bones: Degenerative changes are identified within the thoracic spine. Other: RAD/Chest 1 View (Portable) IMPRESSION: Hyperinflation. Reading Location: [place] [id number]
[2024-09-23] MEDS: Ondansetron 4 MG/2 ML Vial IV (11:59)
[2024-09-23] MEDS: 0.9% Normal Saline (1000mL) 1,000 ML 150 ML IV (11:59)
[2024-09-23 12:03] LABS: Bacteria 0 SEEN /hpf (None Seen); Mucous, Urine 0 SEEN /hpf (<or=2+)
[2024-09-23 12:15] LABS: Absolute Lymphocyte Count 0.75 X10^3/uL (0.83-4.51); Absolute Neutrophil Count 4.8 X10^3/uL (2.0-7.7); Basophil# 0.03 X10^3/uL; Basophil% 0.4 % (0-1); Eosinophil# 0.41 X10^3/uL; Eosinophils% 6.1 % (0-5); Hematocrit 38.3 % (37-47); Hemoglobin 12.5 g/dL (12.0-15.0); Lymphocyte # 0.75 X10^3/ul (0.83-4.51); Lymphocyte % 11.2 % (19-41); Mean Corp Hgb Conc 32.6 g/dL (32-36); Mean Corpuscular Hgb 29.8 pg (27.0-32.0); Mean Corpuscular Volume 91.2 fL (81-99); Mean Platelet Vol. 9.9 fl (6.2-12.0); Monocyte# 0.68 X10^3/uL; Monocyte% 10.2 % (0-10); NRBC Flagged by Analyzer 0 % (0-5); Neutrophil % 71.8 % (47-70); Platelet Count 247 K/mm3 (150-450); RBC Distribution Width CV 13.5 % (11.6-14.6); RBC Distribution Width SD 45.7 fl (35.1-43.9); White Blood Count 6.7 K/mm3 (4.4-11.0)
[2024-09-23 12:20] VITALS: BP 148/76; PULSE 80; RESP 18; O2SAT 98
[2024-09-23 12:29] LABS: Color, Urine Yellow (Yellow); Glucose, Dipstick Normal (Normal); Ketone-Dipstick Negative (Negative); Leukocyte Esterase-Dipstick Negative /ul (Negative); Nitrite-Dipstick Negative (Negative); Occult Blood-Urine 25 /ul (Negative); Protein-Dipstick 15 mg/dl (Negative); Urine Bilirubin Dipstick Negative (Negative); Urine Clarity Clear (Clear); Urine Urobilinogen Normal (Normal)
[2024-09-23 12:37] LABS: ALB/GLOB Ratio 1.4 RATIO (0.9-2.4); AST(SGOT) 24 U/L (<=31); Alanine Aminotransfer ALT/SGPT 5 U/L (<=34); Albumin, Serum 3.7 g/dL (3.4-4.8); Alkaline Phosphatase 97 U/L (35-104); Anion Gap 12 (5-15); BUN 17 mg/dL (4-19); BUN/Creat Ratio 23.7 RATIO (10-20); Carbon Dioxide 21.9 mmol/L (21.0-32.0); Chloride 107 mmol/L (98-108); Creatinine, Serum 0.73 mg/dL (0.70-1.20); EST Glomerular Filtration Rate 83 (>60); Estimated Creatinine Clearance 51.63 ml/min (50-250); Globulin 2.7 g/dL (2.2-4.2); Glucose 109 mg/dL (70-99); Potassium 3.7 mmol/L (3.3-5.1); Protein, Total 6.4 g/dL (5.9-8.4); Sodium Level 140 mmol/L (133-145); Total Bilirubin 0.36 mg/dL (0.00-1.30)
[2024-09-23 12:57] LABS: Lactic Acid < 1.0 mmol/L (0.0-2.0)
[2024-09-23 13:00] VITALS: BP 154/132; PULSE 71; RESP 16; O2SAT 98
--- NOTE | 2024-09-23 13:37 | CT_ITS ---
PROCEDURE: BRAIN/HEAD WITHOUT CONTRAST 09/23/2024 REASON FOR EXAM: CONFUSION TECHNIQUE: Head CT without intravenous contrast. Coronal and Sagittal reconstruction series were provided. One or more dose reduction techniques were used (e.g., Automated exposure control, adjustment of the mA and/or kV according to patient size, use of iterative reconstruction technique. RADIATION DOSE SUMMARY: CTDlvol: 47.06 mGy DLP: 890.33 mGycm COMPARISON: Prior study dated August 26, 2024. FINDINGS: Brain: Low density in the periventricular white matter suggests mild chronic small vessel ischemic changes. CSF Spaces: Moderate generalized cerebral atrophy. Old lacune in the left basal ganglion. Sinuses/Mastoids: Mucosal thickening along the inferior aspect of the right maxillary sinus Bones: CT/Brain/Head without Contrast IMPRESSION: CHRONIC CHANGES. NO ACUTE FINDINGS. Reading Location: [place] [id number]
[2024-09-23 13:57] LABS: White Blood Cells 0-5 SEEN /hpf (0-5)
[2024-09-23 14:00] VITALS: BP 143/78; PULSE 78; RESP 16; O2SAT 98
[2024-09-23 14:04] LABS: Red Blood Cells-Urine 0-5 SEEN /hpf (0-5); Squamous Epithelial Cells - UA 0-5 SEEN /hpf (5-10)
[2024-09-23 14:33] VITALS: BP 143/78; PULSE 78; RESP 16; TEMP 36.6; O2SAT 98
[2024-09-23 15:00] VITALS: BP 116/86; PULSE 76; RESP 15; O2SAT 98
[2024-09-23] MEDS: Carbidopa/Levodopa 25/100 Tablet PO (15:32)
--- NOTE | 2024-09-23 15:44 | CM.ED ---
Social Work SW met with patients daughter who stated she was concerned about taking patient home as she has been requiring more assistance than normal with her ADL care. SW spoke with daughter regarding HH care and what they could provide, daughter requested a referral be made to [facility]. Referral was made and patient was accepted. Daughter and patient left ED prior to SW receiving acceptance for HH. SW called daughter to inform her that he mom was accepted for services and that daughter would need to get patient to see her PCP as soon as possible, preferably today or tomorrow. Daughter stated they would be going tomorrow for an appointment. Daughter thankful for call and services. Priscilla Garcia, [employer]ER, COUNTER MANAGER
== END 2024-09-23 15:43 | disposition home or self-care (01) ==
PROVIDERS: Emergency Provider Emergency Medicine; PCP Family Medicine Geriatric Medicine; Visit Provider Emergency Medicine
DX: R53.1 Weakness (principal); G20.A1 Parkinson's disease without dyskinesia, without mention of fluctuations; G31.83 Neurocognitive disorder with Lewy bodies; F02.80 Dementia in other diseases classified elsewhere, unspecified severity, without behavioral disturbance, psychotic disturbance, mood disturbance, and anxiety; R53.81 Other malaise; Z85.828 Personal history of other malignant neoplasm of skin; E03.9 Hypothyroidism, unspecified; Z79.890 Hormone replacement therapy; Z86.73 Personal history of transient ischemic attack (TIA), and cerebral infarction without residual deficits; Z79.899 Other long term (current) drug therapy
CPT/HCPCS: 70450; 71045; 80053; 81001; 83605; 85025; 93005; 96361; 96374; 99285; P9612; A4216; J2405